=== PATIENT | female | born 1960 | race Caucasian/White ===

== ENCOUNTER 2022-02-15 06:52 | Outpatient (CLI) | payer BC, SELFPAY ==
--- NOTE | 2022-02-15 08:41 | W.ANESCHARGE ---
Anesthesia Charges Start Date/Time Anesthesia Start Date: 02/15/22 Anesthesia Start Time: 08:05 Stop Date/Time Anesthesia Stop Date: 02/15/22 Anesthesia Stop Time: 08:35 Summary Emergency: No
--- NOTE | 2022-02-15 09:35 | W.ANESCHARGE ---
Anesthesia Charges Start Date/Time Anesthesia Start Date: 02/15/22 Anesthesia Start Time: 08:05 Stop Date/Time Anesthesia Stop Date: 02/15/22 Anesthesia Stop Time: 08:35 Summary Emergency: No
== END 2022-02-15 06:53 | disposition home or self-care (01) ==
LOC: OP CLINIC 06:53
PROVIDERS: PCP Family Medicine; Visit Provider Internal Medicine Gastroenterology
DX: Z12.11 Encounter for screening for malignant neoplasm of colon (principal); Z86.010 Personal history of colon polyps; Z87.19 Personal history of other diseases of the digestive system
CPT/HCPCS: 45380; 811; 88305; J2704

== ENCOUNTER 2022-06-27 16:51 | Emergency (ER) | payer BC, SELFPAY ==
[2022-06-27 17:01] VITALS: BP 109/77; PULSE 117; TEMP 37.7; O2SAT 93; BMI 20.2
--- NOTE | 2022-06-27 17:09 | CRLHL7_ITS ---
For Patients: As a result of the Century Cures Act, medical imaging exams and procedure reports are released immediately into your electronic medical record. You may view this report before your referring provider. If you have questions, please contact your health care provider. INDICATION: TECHNIQUE: Two view chest. FINDINGS: The lungs are clear. The heart, mediastinum and pulmonary vessels are of normal size. There is no evidence of pleural disease. Biapical probable fibrotic change. Lungs appear hyperinflated. IMPRESSION: No acute pulmonary findings. Dictated by Matilda Lamas MD @ 06/27/2022 5:53:11 PM (Electronically Signed)
--- NOTE | 2022-06-27 17:10 | ED_ITS ---
HPI - General Adult General Chief complaint: Cough Stated complaint: Vomiting and Diarrea Time Seen by Provider: 06/27/22 17:03 History of Present Illness HPI narrative: This 61-year-old female comes in with a report of 5 days of upper respiratory infection symptoms including cough, nasal congestion, and subjective fever. She is a smoker but attempting to quit. She arrives with normal vital signs except her heart rate is increased at 117 beats per minute. Her temperature also is at 99.9. Related Data Home Medications Medication Instructions Recorded Confirmed aspirin 81 mg tablet,delayed mg 06/27/22 release lisinopril 10 mg tablet mg 06/27/22 methocarbamol 500 mg tablet mg 06/27/22 rosuvastatin 10 mg tablet mg 06/27/22 Allergies Allergy/AdvReac Type Severity Reaction Status Date / Time infliximab [From Remicade] Allergy Severe Anaphylaxis Verified 02/15/22 09:32 pollen extracts AdvReac Intermediate itching Verified 02/15/22 09:32 codeine AdvReac Mild GI upset Verified 02/15/22 09:32 iohexol AdvReac Mild Verified 02/15/22 09:32 augmentin Allergy Mild Rash Uncoded 02/15/22 09:32 Review of Systems Status of ROS: Reports: 10 or more systems reviewed and unremarkable except as noted in History and below Narrative: Constitutional: No fevers, no weight gain or loss. Eyes: No discharge. No vision changes. HENT: No congestion, no sore throat, no ear pain. Cardiovascular: No chest pain, no palpitations. Respiratory: No shortness of breath, no wheezes. Frequent cough. Gastrointestinal: No abdominal pain, no vomiting, no diarrhea. Genitourinary: No dysuria, no hematuria. Musculoskeletal: Normal range of motion. Skin: No rashes, no pruritis. Neurological: No dizziness, weakness, sensory change, speech change. Endo/Heme/Allergies: No bruising or bleeding. No polydipsia. Pysch: no suicidality, no anxiety, no insomnia. All other systems reviewed and are negative. Exam Narrative: Exam Narrative: Constitutional: Well-developed, well-nourished, no acute distress. HEENT: Normocephalic, atraumatic. Neck: Normal range of motion. Nontender. Supple. Heart: Regular. No murmurs. Normal rate. Intact distal pulses. Lungs: Clear to auscultation. No chest discomfort. Bilateral rhonchi. Abdomen: Normal bowel sounds. Nontender. No rebound tenderness. Genitalia: Deferred. Back: No midline tenderness. Normal range of motion. Extremities: Normal range of motion. No injury. Skin: Intact. No rash. Warm. No erythema or pallor. Neurologic: No altered sensation. No weakness. Alert and oriented. Psychiatric: No suicidality. No anxiety or depression. No insomnia. Nursing notes and vitals signs are reviewed. Const: Vital Signs, click to edit/add: Vital Signs - 24 hr 06/27/22 17:01 06/27/22 17:50 06/27/22 18:01 Temperature 99.9 F H Pulse Rate [Left] 117 H 86 Blood Pressure [Ri ght Upper Arm] 109/77 136/97 H Pulse Oximetry 93 93 Oxygen Delivery Me thod Room Air Room Air Course Vital Signs Vital signs: Initial Vital Signs Temperature 99.9 F H 06/27/22 17:01 Temperature Source Temporal Artery Scan 06/27/22 17:01 Pulse Rate 117 H 06/27/22 17:01 Blood Pressure 109/77 06/27/22 17:01 Blood Pressure Mean 87 06/27/22 17:01 Blood Pressure Position Sitting 06/27/22 17:01 Pulse Oximetry 93 06/27/22 17:01 Oxygen Delivery Method 06/27/22 17:01 Vital Signs Temperature 99.9 F H 06/27/22 17:01 Pulse Rate 117 H 06/27/22 17:01 Blood Pressure 109/77 06/27/22 17:01 Pulse Oximetry 93 06/27/22 17:01 Oxygen Delivery Method 06/27/22 17:01 Temperature 99.9 F H 06/27/22 17:01 Pulse Rate 86 06/27/22 18:01 Blood Pressure 136/97 H 06/27/22 17:50 Pulse Oximetry 93 06/27/22 18:01 Oxygen Delivery Method 06/27/22 18:01 Medical Decision Making [facility] Narrative Medical decision making narrative: This patient comes in with some tachycardia a and possible increased respiratory rate. Is not certain if she is triggering sirs criteria for sepsis but nevertheless I did order appropriate test to rule this out. Time seen: 1720 Date seen: 06/27/2022 This patient presents with symptoms suspicious for sepsis. Appropriate labs are ordered which may include CBC, BMP, lactate, and blood cultures. The initial lactate returns at 1.7. One thousand mL of IV fluids were ordered at a rate of 1000 mL/hr. Antibiotic treatment is not indicated at this time. A repeat lactate at was not indicated. Based on these results this patient does not have severe sepsis or septic shock. The patient did receive an IV dose of Solu-Medrol 125 mg. Chest x-ray returns with no acute findings. Nasal for angio swab is negative for COVID, influenza, and RSV. Additionally her labs returned with normal white count and no other particular notable findings. Most likely she has a viral infection. She does have a smoking history. I did prescribe albuterol inhaler, Tylenol 3 for cough suppressant benefit, and a Z-Fernando in the event that this may help her given her smoking history risk. Lab Data Labs: Lab Results 06/27/22 06/27/22 06/27/22 Range/Units 17:00 17:38 17:38 WBC 8.84 (4.50-11.00) K/uL RBC 4.95 (4.00-5.20) m/uL Hgb 14.4 (12.0-16.0) gm/dL Hct 43.3 (33.0-51.0) % MCV 88 (80-100) fL MCH 29 (26-34) pg MCHC 33 (32-36) gm/dL RDW Coeff of David 12.4 (11.5-15.5) % Plt Count 232 (140-440) K/uL Neut % (Auto) 71.0 (42.0-72.0) % Lymph % (Auto) 15.0 L (20-44) % [place] % (Auto) 12.2 H (0.0-11.0) % Eos % (Auto) 1.0 (0.0-7.0) % Baso % (Auto) 0.6 (0.0-3.0) % Neut # (Auto) 6.27 (1.7-7.0) K/uL Lymph # (Auto) 1.30 (0.90-2.90) K/uL [place] # (Auto) 1.10 H (0.00-0.90) K/UL Eos # (Auto) 0.09 (0.00-0.50) K/uL Baso # (Auto) 0.05 (0.00-0.30) K/uL Abs Immat Gran (auto) 0.02 (0.00-0.30) K/uL Imm/Tot Granulo (auto) 0.2 % VBG pH (7.32-7.43) VBG pCO2 (40-50) mmHG VBG pO2 (25-47) mmHG VBG HCO3 (21-28) mmol/L Sodium 139 (135-149) mmol/L Potassium 3.8 (3.6-5.1) mmol/L Chloride 108 (96-114) mmol/L Carbon Dioxide 22 (20-32) mmol/L BUN 13 (7-30) mg/dL Creatinine 0.5 (0.5-1.5) mg/dL Estimated Creat Clear 107.10 Estimated GFR 107 ml/min Glucose 134 H (60-115) mg/dL Lactate (0.5-1.9) mmol/L Calcium 9.5 (8.4-10.6) mg/dL SARS-CoV-2 (PCR) Negative SARS-CoV-2 (Negative) Influenza Type A (PCR) Negative PCR FLU A (Negative) Influenza Type B (PCR) Negative PCR FLU B (Negative) RSV (PCR) Negative PCR RSV (Negative) 06/27/22 Range/Units 17:38 WBC (4.50-11.00) K/uL RBC (4.00-5.20) m/uL Hgb (12.0-16.0) gm/dL Hct (33.0-51.0) % MCV (80-100) fL MCH (26-34) pg MCHC (32-36) gm/dL RDW Coeff of David (11.5-15.5) % Plt Count (140-440) K/uL Neut % (Auto) (42.0-72.0) % Lymph % (Auto) (20-44) % [place] % (Auto) (0.0-11.0) % Eos % (Auto) (0.0-7.0) % Baso % (Auto) (0.0-3.0) % Neut # (Auto) (1.7-7.0) K/uL Lymph # (Auto) (0.90-2.90) K/uL [place] # (Auto) (0.00-0.90) K/UL Eos # (Auto) (0.00-0.50) K/uL Baso # (Auto) (0.00-0.30) K/uL Abs Immat Gran (auto) (0.00-0.30) K/uL Imm/Tot Granulo (auto) % VBG pH 7.439 H (7.32-7.43) VBG pCO2 35 L (40-50) mmHG VBG pO2 55.9 H (25-47) mmHG VBG HCO3 23 (21-28) mmol/L Sodium (135-149) mmol/L Potassium (3.6-5.1) mmol/L Chloride (96-114) mmol/L Carbon Dioxide (20-32) mmol/L BUN (7-30) mg/dL Creatinine (0.5-1.5) mg/dL Estimated Creat Clear Estimated GFR ml/min Glucose (60-115) mg/dL Lactate 1.7 (0.5-1.9) mmol/L Calcium (8.4-10.6) mg/dL SARS-CoV-2 (PCR) (Negative) Influenza Type A (PCR) (Negative) Influenza Type B (PCR) (Negative) RSV (PCR) (Negative) Imaging Data Chest x-ray: Radiologist's impression: FINDINGS: The lungs are clear. The heart, mediastinum and pulmonary vessels are of normal size. There is no evidence of pleural disease. Biapical probable fibrotic change. Lungs appear hyperinflated. IMPRESSION: No acute pulmonary findings. Discharge Plan Discharge Clinical Impression: Acute lower respiratory infection Patient Disposition: Home, Self-Care Condition: Stable Additional Instructions: Take medication as needed and indicated. Follow up with MD or return if worsening. Prescriptions: No Action methocarbamol 500 mg tablet aspirin 81 mg tablet,delayed release (DR/EC) lisinopril 10 mg tablet rosuvastatin 10 mg tablet Follow Up/Referrals: Andie Holliday MD [Primary Care Provider] - Stand Alone Forms: [employer] Info Instructions
[2022-06-27] MEDS: dexAMETHasone 10 MG/ML inj PO (17:14)
[2022-06-27 17:45] LABS: HCO3 VBG 23 mmol/L (21-28); Lactate* 1.7 mmol/L (0.5-1.9); PCO2 VBG 35 mmHG (40-50); PO2 VBG 55.9 mmHG (25-47); pH VBG 7.439 (7.32-7.43)
[2022-06-27 17:48] LABS: Basophils Absolute Auto 0.05 K/uL (0.00-0.30); Basophils Percent Auto 0.6 % (0.0-3.0); Eosinophils Absolute Auto 0.09 K/uL (0.00-0.50); Hematocrit 43.3 % (33.0-51.0); Hemoglobin* 14.4 gm/dL (12.0-16.0); Immature Granulocytes Abs Auto 0.02 K/uL (0.00-0.30); Immature Granulocytes Pct Auto 0.2 %; Mean Corpuscular HGB Conc 33 gm/dL (32-36); Mean Corpuscular Hemoglobin 29 pg (26-34); Mean Corpuscular Volume 88 fL (80-100); Monocytes Percent Auto 12.2 % (0.0-11.0); Neutrophils Absolute Auto 6.27 K/uL (1.7-7.0); Platelet Count* 232 K/uL (140-440); RDW Coefficient of Variation % 12.4 % (11.5-15.5); Red Blood Count 4.95 m/uL (4.00-5.20); Slide Review Reflex No; White Blood Count* 8.84 K/uL (4.50-11.00)
[2022-06-27 17:50] VITALS: BP 136/97
[2022-06-27 17:53] LABS: PCR FLU A Negative PCR FLU A (Negative); PCR FLU B Negative PCR FLU B (Negative); PCR RSV Negative PCR RSV (Negative)
[2022-06-27 17:54] LABS: SARS PCR* Negative SARS-CoV-2 (Negative)
[2022-06-27] MEDS: 0.9 % SODIUM CHLORIDE 1000 ml 1,000 ML IV (17:57)
[2022-06-27 18:01] VITALS: PULSE 86; O2SAT 93
[2022-06-27 18:01] LABS: Chloride* 108 mmol/L (96-114); Potassium* 3.8 mmol/L (3.6-5.1); Sodium* 139 mmol/L (135-149)
[2022-06-27 18:03] LABS: Creatinine* 0.5 mg/dL (0.5-1.5); Estimated Glomerular Filt Rate 107 ml/min
[2022-06-27 18:04] LABS: Blood Urea Nitrogen* 13 mg/dL (7-30); Calcium* 9.5 mg/dL (8.4-10.6); Carbon Dioxide* 22 mmol/L (20-32); Glucose* 134 mg/dL (60-115)
[2022-06-27] MEDS: METHYLPREDNISOLONE SOD SUCC 62.5 MG/ML (125) 125 MG IVP (18:45)
[2022-06-27 18:55] VITALS: PULSE 92; O2SAT 95
== END 2022-06-27 18:58 | disposition home or self-care (01) ==
PROVIDERS: Emergency Provider Emergency Medicine Emergency Medical Services; PCP Family Medicine
DX: J22 Unspecified acute lower respiratory infection (principal); F17.210 Nicotine dependence, cigarettes, uncomplicated
CPT/HCPCS: 36415; 71046; 80048; 82803; 83605; 85025; 87040; 87502; 87634; 87635; 96361; 96374; 99284; J1100; J2930; J7030

== ENCOUNTER 2023-02-24 00:26 | Emergency (ER) | payer BC, SELFPAY ==
[2023-02-24 00:37] VITALS: BP 147/87; PULSE 76; RESP 20; TEMP 36.3; BMI 20.8
--- NOTE | 2023-02-24 00:55 | ED.GENADULT ---
HPI - General Adult General Chief complaint: Back Injury/Pain Stated complaint: back pain Time Seen by Provider: 02/24/23 00:55 History of Present Illness HPI narrative: states [place] Went [place] urgent care last week when she hurt it again lifting a mattress and they gave her some pills but they are not helping 62-year-old woman presenting to the emergency department with complaint of back pain. This injury occurred a believe now 5 or 6 days ago. Was seen 3 days ago in the urgent care and looks like was given cyclobenzaprine. Diagnosed with low back pain and it seems like thought to have had some muscle spasm. She [place]. This occurred while she was lifting a mattress most recently with sudden onset of pain. She is not really having radicular pain. Flexion rotation at the waist hurts a great deal. Trying to stand up/straighten up is painful. Does not seem to be able to get the pain under control with [id number] medications and cyclobenzaprine. She has been icing. Does have access to a [employer] unit. Related Data Home Medications Medication Instructions Recorded Confirmed aspirin 81 mg tablet,delayed mg 06/27/22 02/21/23 release lisinopril 10 mg tablet mg 06/27/22 02/21/23 methocarbamol 500 mg tablet mg 06/27/22 02/21/23 rosuvastatin 10 mg tablet mg 06/27/22 02/21/23 Previous Rx's Medication Instructions Recorded cyclobenzaprine 5 mg tablet 5 - 10 mg (1 - 2 x 5 mg) PO TID 02/21/23 PRN muscle spasm #20 tabs hydrocodone 5 mg-acetaminophen 325 1 - 2 tab PO Q4-6H PRN pain #8 tabs 02/24/23 mg tablet Allergies Allergy/AdvReac Type Severity Reaction Status Date / Time infliximab [From Remicade] Allergy Severe Anaphylaxis Verified 02/21/23 12:15 pollen extracts AdvReac Intermediate itching Verified 02/21/23 12:15 codeine AdvReac Mild GI upset Verified 02/21/23 12:15 iohexol AdvReac Mild Verified 02/21/23 12:15 augmentin Allergy Mild Rash Uncoded 02/21/23 12:15 Review of Systems Status of ROS: Reports: 6 or more systems reviewed and unremarkable except as noted in History and below [facility] Medical History Low back pain ?M54.50 - Low back pain, unspecified (ICD-10) Smoker ?F17.200 - Nicotine dependence, unspecified, uncomplicated (ICD-10) Wheezing ?R06.2 - Wheezing (ICD-10) Social History Smoking Status: Current every day smoker What tobacco products do you use: cigarettes Second hand tobacco smoke exposure: No How often do you have a drink containing alcohol: never How often do you have six or more drinks on one occasion: Never AUDIT-C Alcohol total score: 0 Non-prescribed substance use: denies use Exam Narrative: Exam Narrative: Pleasant. Clearly very uncomfortable. Winces with transitions. Straight leg raise is negative. She is not actually weak to flexion or extension at the thigh. I do not see deformity. Pain seems to be across the low back with demonstrating that it is regional its affect. Seems to be concentrated somewhat around the right SI joint. Fabers is positive. Does not have significant piriformis pain. Const: Vital Signs, click to edit/add: Vital Signs - 24 hr 02/24/23 00:37 Temperature 97.4 F L Pulse Rate [Right Pulse Oximeter] 76 Respiratory Rate 20 Blood Pressure [Le ft Upper Arm] 147/87 H Oxygen Delivery Me thod Room Air Documenting provider has reviewed patient's vital signs: yes Course Vital Signs Vital signs: Initial Vital Signs Temperature 97.4 F L 02/24/23 00:37 Temperature Source Temporal Artery Scan 02/24/23 00:37 Pulse Rate 76 02/24/23 00:37 Respiratory Rate 20 02/24/23 00:37 Blood Pressure 147/87 H 02/24/23 00:37 Blood Pressure Mean 107 H 02/24/23 00:37 Blood Pressure Position Sitting 02/24/23 00:37 Oxygen Delivery Method Room Air 02/24/23 00:37 Vital Signs Temperature 97.4 F L 02/24/23 00:37 Pulse Rate 76 02/24/23 00:37 Respiratory Rate 20 02/24/23 00:37 Blood Pressure 147/87 H 07/20/23 00:37 Oxygen Delivery Method Room Air 07/20/23 00:37 Temperature 97.4 F L 02/24/23 00:37 Pulse Rate 76 02/24/23 00:37 Respiratory Rate 20 02/24/23 00:37 Blood Pressure 147/87 H 02/24/23 00:37 Oxygen Delivery Method Room Air 02/24/23 00:37 Medical Decision Making MDM Narrative Medical decision making narrative: I do not think imaging would be particularly helpful at this point. I would continue with mobility, strengthening/stretching and symptomatic treatment. See patient discharge plan Medical Records Medical records reviewed: Yes I reviewed the patient's medical records Discharge Plan Discharge Clinical Impression: Sacroiliac strain, Low back pain Patient Disposition: Home w/ Parent or Adult Condition: Improved Additional Instructions: I like those screw top ice bags. Fill with ice and water. I would ice the areas that hurt 2 - 3 times daily over the next few days. Stay well-hydrated. Can take ibuprofen or naproxen for pain. Acetaminophen can be combined with either of these. If this isn't enough, then Kittery from [facility] can help (due to very small quantities available in [employer], I also sent some to your pharmacy). Remember that each tablet of Kittery contains 325 mg of acetaminophen. Can take up to 1000 mg of acetaminophen per dose. See handout for sacral iliac pain. I would try to do these exercises and stretches daily going forward. Please also make a follow-up with primary care to be re-evaluated and/or get in with physical therapy. Yes, your TENS unit might help. Take the prednisone as 60 mg daily for 2 days then 40 mg daily for 4 days then 20 mg daily for 2 days Prescriptions: New hydrocodone-acetaminophen 5-325 mg tablet 1 - 2 tab PO Q4-6H PRN (Reason: pain) Qty: 8 0RF No Action cyclobenzaprine 5 mg tablet 5 - 10 mg PO TID PRN (Reason: muscle spasm) Qty: 20 0RF methocarbamol 500 mg tablet aspirin 81 mg tablet,delayed release (DR/EC) lisinopril 10 mg tablet rosuvastatin 10 mg tablet Follow Up/Referrals: Andie Holliday MD [Primary Care Provider] - Stand Alone Forms: [employer] Info Instructions
[2023-02-24] MEDS: HYDROmorphone 0.5 mg/0.5 ml inj 1 MG IM (01:16)
== END 2023-02-24 01:48 | disposition home or self-care (01) ==
PROVIDERS: Emergency Provider Family Medicine; PCP Family Medicine
DX: M54.50 Low back pain, unspecified (principal); M53.3 Sacrococcygeal disorders, not elsewhere classified
CPT/HCPCS: 96372; 99284; J1170

== ENCOUNTER 2023-06-01 15:02 | Emergency (ER) | payer BC, SELFPAY ==
[2023-06-01 15:16] VITALS: BP 149/84; PULSE 78; RESP 18; TEMP 36.1; O2SAT 97; BMI 20.2
--- NOTE | 2023-06-01 15:33 | CRLHL7_ITS ---
For Patients: As a result of the Century Cures Act, medical imaging exams and procedure reports are released immediately into your electronic medical record. You may view this report before your referring provider. If you have questions, please contact your health care provider. CLINICAL HISTORY: Right lower extremity numbness. TECHNIQUE: CTA head with contrast bolus tracking. 3D angiographic rendering using maximum intensity projection (MIP) and images permanently archived. COMPARISON: None available. FINDINGS: The petrous, cavernous, and supraclinoid segments of the internal carotid arteries are patent. The anterior and middle cerebral arteries are patent. The anterior communicating artery is visualized and is within normal limits. The intracranial vertebral arteries, basilar trunk, and posterior cerebral arteries are patent. Scattered intracranial atherosclerotic disease without proximal large vessel occlusion or flow-limiting luminal stenosis. No evidence of cerebral aneurysm. No findings to suggest an arterial-venous shunting lesion. The major dural venous sinuses and deep venous system are patent. IMPRESSION: No intracranial proximal large vessel occlusion, flow-limiting luminal stenosis, or cerebral aneurysm. Please note that all CT scans at this facility use dose modulation, iterative reconstruction, and/or weight-based dosing when appropriate to reduce radiation dose to as low as reasonably achievable. Dictated by Mark Fisher MD @ 06/02/2023 8:03:47 AM (Electronically Signed)
--- NOTE | 2023-06-01 15:33 | CRLHL7_ITS ---
For Patients: As a result of the Century Cures Act, medical imaging exams and procedure reports are released immediately into your electronic medical record. You may view this report before your referring provider. If you have questions, please contact your health care provider. CLINICAL HISTORY: Right lower extremity numbness. TECHNIQUE: CTA neck with contrast bolus tracking. 3D angiographic rendering using maximum intensity projection (MIP) and images permanently archived. COMPARISON: None available. FINDINGS: The great vessels are patent. The common carotid arteries are patent. Mixed but predominantly noncalcified atherosclerotic plaque involves the right carotid bifurcation and extends into the carotid bulb. The proximal ICAs are patent without signficant stenoses by NASCET criteria. The more distal cervical ICAs are patent. The origins of the vertebral arteries are patent. The cervical segments of the vertebral arteries are patent. Biapical pleural-parenchymal scarring. IMPRESSION: Patent cervical arterial vasculature without hemodynamically significant luminal stenosis. Please note that all CT scans at this facility use dose modulation, iterative reconstruction, and/or weight-based dosing when appropriate to reduce radiation dose to as low as reasonably achievable. Dictated by Mark Fisher MD @ 06/02/2023 8:00:58 AM (Electronically Signed)
--- NOTE | 2023-06-01 15:33 | CRLHL7_ITS ---
For Patients: As a result of the Century Cures Act, medical imaging exams and procedure reports are released immediately into your electronic medical record. You may view this report before your referring provider. If you have questions, please contact your health care provider. INDICATION: Right leg numbness TECHNIQUE: Noncontrast axial CT of the head. Coronal and sagittal reformats. Bone and soft tissue algorithms. COMPARISON: CT head 05/15/2020 FINDINGS: The ventricles and cortical sulci appears stable in configuration. No midline shift, hydrocephalus or herniation. No acute intracranial hemorrhage or extra-axial fluid collection. Small hypoattenuating focus in the region of the left basal ganglia, compatible with chronic lacune infarct, new will attempt to 05/15/2020. Stable small focus of encephalomalacia at the left frontal operculum. Bond-white matter differentiation is grossly maintained. White matter attenuation is within normal limits. There is calcific plaquing the carotid siphons. Midline structures are unremarkable. Bony calvarium appears grossly intact. Paranasal sinuses and mastoid air cells are clear. Orbits are unremarkable. IMPRESSION: 1. No acute intracranial hemorrhage or evidence of transcortical ischemia. 2. Small chronic lacunar infarct at the left basal ganglia, new relative to 05/15/2020. 3. Stable small focus of encephalomalacia at the left frontal operculum. Please note that all CT scans at this facility use dose modulation, iterative reconstruction, and/or weight-based dosing when appropriate to reduce radiation dose to as low as reasonably achievable. Dictated by Martha Quezada MD @ 06/01/2023 4:37:25 PM (Electronically Signed)
--- NOTE | 2023-06-01 15:37 | CRLHL7_ITS ---
For Patients: As a result of the Cures Act, medical imaging exams and procedure reports are released immediately into your electronic medical record. You may view this report before your referring provider. If you have questions, please contact your health care provider. INDICATION: Fall COMPARISON: None. TECHNIQUE: AP pelvis FINDINGS: BONES: Screw tract from a now removed dynamic hip screw across the right femoral neck. No acute or healing fracture. Normal bone mineralization. No focal bone lesion. JOINT: Alignment: Normal. Joint spaces: Bilateral hip osteoarthritis, mild. SOFT TISSUES: Contrast in the urinary bladder and right ureter related to CT angiogram head obtained earlier today. IMPRESSION: No pelvic fracture seen. Dictated by Lisha Huynh MD @ 06/01/2023 4:42:38 PM (Electronically Signed)
--- NOTE | 2023-06-01 15:38 | ED_ITS ---
HPI - General Adult General Time Seen by Provider: 15:38 Date Seen: 06/01/23 Chief complaint: Extremity Pain/Injury, Lower Stated complaint: Leg went numb, fall Time Seen by Provider: 06/01/23 15:07 Source: patient Mode of arrival: ambulatory Limitations: no limitations History of Present Illness HPI narrative: 62-year-old female who reports she had a stroke in the past for she had right- sided weakness and facial droop, she recovered well from that. She was walking at her job today going down 3 stairs and her right leg went numb and then she fell she had pain in her right lateral hip the 1 that was replaced. She has been able to bear weight she has been able to walk, she continues to smoke. She has hypertension and elevated cholesterol. The patient has no residual weakness in her leg and was able to get up and walk right away she had no facial asymmetry, no neck stiffness or back pain. She was seen for back pain by physical therapy a few weeks ago and did have some mild right leg symptoms that seemed to have gotten better. No other specific complaints at this time. No chest pain, no shortness of breath, no recent fever chills or illness. No d izziness or lightheadedness. Related Data Home Medications Medication Instructions Recorded Confirmed aspirin 81 mg tablet,delayed mg 06/27/22 02/21/23 release lisinopril 10 mg tablet mg 06/27/22 02/21/23 methocarbamol 500 mg tablet mg 06/27/22 02/21/23 rosuvastatin 10 mg tablet mg 06/27/22 02/21/23 Previous Rx's Medication Instructions Recorded cyclobenzaprine 5 mg tablet 5 - 10 mg (1 - 2 x 5 mg) PO TID 02/21/23 PRN muscle spasm #20 tabs hydrocodone 5 mg-acetaminophen 325 1 - 2 tab PO Q4-6H PRN pain #8 tabs 02/24/23 mg tablet Allergies Allergy/AdvReac Type Severity Reaction Status Date / Time infliximab [From Remicade] Allergy Severe Anaphylaxis Verified 02/21/23 12:15 pollen extracts AdvReac Intermediate itching Verified 02/21/23 12:15 codeine AdvReac Mild GI upset Verified 02/21/23 12:15 iohexol AdvReac Mild Verified 02/21/23 12:15 augmentin Allergy Mild Rash Uncoded 02/21/23 12:15 Review of Systems Status of ROS: Reports: 6 or more systems reviewed and unremarkable except as noted in History and below [facility] Medical History Low back pain ?M54.50 - Low back pain, unspecified (ICD-10) Smoker ?F17.200 - Nicotine dependence, unspecified, uncomplicated (ICD-10) Wheezing ?R06.2 - Wheezing (ICD-10) Social History Smoking Status: Current every day smoker What tobacco products do you use: cigarettes Second hand tobacco smoke exposure: No How often do you have a drink containing alcohol: never How often do you have six or more drinks on one occasion: Never AUDIT-C Alcohol total score: 0 Non-prescribed substance use: denies use Exam Narrative: Exam Narrative: Objective: Patient's vital signs look largely within normal limits with exception of blood pressure slightly elevated HEENT is unremarkable no facial asymmetry, pupils react to light extra moves intact Mouth opens normally, normal tongue protrusion Neck is supple full range of motion Chest back abdomen unremarkable Pulses regular Extremities she has mild right greater trochanteric area tenderness, she has no strength deficit or weakness or lower extremities. She has normal peripheral perfusion Const: Vital Signs, click to edit/add: Vital Signs - 24 hr 06/01/23 15:16 Temperature 97 F L Pulse Rate [Pulse Oximeter] 78 Respiratory Rate 18 Blood Pressure [Ri ght Upper Arm] 149/84 H Pulse Oximetry 97 Oxygen Delivery Me thod Room Air Course Vital Signs Vital signs: Initial Vital Signs Temperature 97 F L 06/01/23 15:16 Temperature Source Temporal Artery Scan 06/01/23 15:16 Pulse Rate 78 06/01/23 15:16 Respiratory Rate 18 06/01/23 15:16 Blood Pressure 149/84 H 06/01/23 15:16 Blood Pressure Mean 105 06/01/23 15:16 Blood Pressure Position Sitting 06/01/23 15:16 Pulse Oximetry 97 06/01/23 15:16 Oxygen Delivery Method Room Air 06/01/23 15:16 Vital Signs Temperature 97 F L 06/01/23 15:16 Pulse Rate 78 06/01/23 15:16 Respiratory Rate 18 06/01/23 15:16 Blood Pressure 149/84 H 06/01/23 15:16 Pulse Oximetry 97 06/01/23 15:16 Oxygen Delivery Method Room Air 06/01/23 15:16 Temperature 97 F L 06/01/23 15:16 Pulse Rate 78 06/01/23 15:16 Respiratory Rate 18 06/01/23 15:16 Blood Pressure 149/84 H 06/01/23 15:16 Pulse Oximetry 97 06/01/23 15:16 Oxygen Delivery Method Room Air 06/01/23 15:16 Medical Decision Making MDM Narrative Medical decision making narrative: [age] year white female with some right leg numbness that she felt caused her to fall. This certainly could be from a back pain in the sciatic kind of issue from before. The concern be she has risk factors for stroke that include continued smoking, elevated cholesterol, hypertension. I think at this point given the patient's prior history will get a pelvic x-ray to look at her right hip to make sure that is intact. Also would do a CT CTA because of the patient's prior stroke history and make sure should have any stroke issues. I do not think that that is the case as I suspect this is more related to either imbalance, or related to her prior hip repair or sciatic type change or issue, causing her to fall. I suspect given that there was no residual weakness or other problem that this is not stroke-like but given her prior history I think this be appropriate to check. Addendum 5:00 p.m.: The patient has a negative pelvic x-ray for fracture injury. The patient also has a negative head CT scan showing no acute intracranial hemorrhage or evidence of transcortical ischemia she does have a small chronic lacunar infarct at the left basal ganglia new relative to 2001. She appears to have no significant blockage in her neck her head CTA, and no evidence of bleeding. I think at this point the patient likely had some type of muscular issue or neurologic issues such as a sciatic issue that could have caused some numbness and the fall. Stressed importance of stopping smoking given she has a new older lacunar infarct. Would recommend she engage in light activity, observation, and recheck with regular doctor next few days. May use some ice and ibuprofen for her right hip. Return to ED sooner as needed also of note is the patient's EKG shows normal sinus rhythm normal EKG by my read Lab Data Labs: Lab Results 06/01/23 Range/Units 16:00 WBC 6.58 (4.50-11.00) K/uL RBC 4.57 (4.00-5.20) m/uL Hgb 13.4 (12.0-16.0) gm/dL Hct 41.5 (33.0-51.0) % MCV 91 (80-100) fL MCH 29 (26-34) pg MCHC 32 (32-36) gm/dL RDW Coeff of David 12.7 (11.5-15.5) % Plt Count 240 (140-440) K/uL Neut % (Auto) 57.0 (42.0-72.0) % Lymph % (Auto) 30.5 (20-44) % [place] % (Auto) 9.4 (0.0-11.0) % Eos % (Auto) 2.3 (0.0-7.0) % Baso % (Auto) 0.8 (0.0-3.0) % Neut # (Auto) 3.75 (1.7-7.0) K/uL Lymph # (Auto) 2.01 (0.90-2.90) K/uL [place] # (Auto) 0.60 (0.00-0.90) K/UL Eos # (Auto) 0.15 (0.00-0.50) K/uL Baso # (Auto) 0.05 (0.00-0.30) K/uL Abs Immat Gran (auto) 0.00 (0.00-0.30) K/uL Imm/Tot Granulo (auto) 0.0 % Sodium 142 (135-149) mmol/L Potassium 3.8 (3.6-5.1) mmol/L Chloride 108 (96-114) mmol/L Carbon Dioxide 25 (20-32) mmol/L Anion Gap 9 (7-15) mEq/L BUN 10 (7-30) mg/dL Creatinine 0.7 (0.5-1.5) mg/dL Estimated Creat Clear 52.88 Estimated GFR 98 ml/min Glucose 96 (60-115) mg/dL Calcium 9.2 (8.4-10.6) mg/dL Discharge Plan Discharge Clinical Impression: Paresthesia of right leg, History of stroke, Fall Patient Disposition: Home w/ Parent or Adult Condition: Stable Additional Instructions: Light activity, recommend stop smoking, recommend follow-up with her primary care doctor next few days. May use some Tylenol for the next couple of days. Ice to the right side of the hip as needed. Return to the ED as needed. Activity Level: Light activity Discharge Diet: Low Fat/Low Cholesterol Prescriptions: No Action cyclobenzaprine 5 mg tablet 5 - 10 mg PO TID PRN (Reason: muscle spasm) Qty: 20 0RF hydrocodone-acetaminophen 5-325 mg tablet 1 - 2 tab PO Q4-6H PRN (Reason: pain) Qty: 8 0RF methocarbamol 500 mg tablet aspirin 81 mg tablet,delayed release (DR/EC) lisinopril 10 mg tablet rosuvastatin 10 mg tablet Follow Up/Referrals: Andie Holliday MD [Primary Care Provider] - Stand Alone Forms: [employer] Info Instructions
[2023-06-01 16:42] LABS: Chloride* 108 mmol/L (96-114); Potassium* 3.8 mmol/L (3.6-5.1); Sodium* 142 mmol/L (135-149)
[2023-06-01 16:45] LABS: Anion Gap 9 mEq/L (7-15); Blood Urea Nitrogen* 10 mg/dL (7-30); Calcium* 9.2 mg/dL (8.4-10.6); Carbon Dioxide* 25 mmol/L (20-32); Creatinine* 0.7 mg/dL (0.5-1.5); Est. Creatinine Clearance* 52.88; Estimated Glomerular Filt Rate 98 ml/min; Glucose* 96 mg/dL (60-115)
[2023-06-01 16:47] LABS: Basophils Absolute Auto 0.05 K/uL (0.00-0.30); Basophils Percent Auto 0.8 % (0.0-3.0); Eosinophils Absolute Auto 0.15 K/uL (0.00-0.50); Eosinophils Percent Auto 2.3 % (0.0-7.0); Hematocrit 41.5 % (33.0-51.0); Hemoglobin* 13.4 gm/dL (12.0-16.0); Lymphocytes Absolute Auto 2.01 K/uL (0.90-2.90); Lymphocytes Percent Auto 30.5 % (20-44); Mean Corpuscular HGB Conc 32 gm/dL (32-36); Mean Corpuscular Hemoglobin 29 pg (26-34); Mean Corpuscular Volume 91 fL (80-100); Monocytes Percent Auto 9.4 % (0.0-11.0); Neutrophils Absolute Auto 3.75 K/uL (1.7-7.0); Platelet Count* 240 K/uL (140-440); RDW Coefficient of Variation % 12.7 % (11.5-15.5); Red Blood Count 4.57 m/uL (4.00-5.20); White Blood Count* 6.58 K/uL (4.50-11.00)
[2023-06-01 16:49] LABS: Slide Review Reflex No
== END 2023-06-01 17:15 | disposition home or self-care (01) ==
LOC: ED 15:47
PROVIDERS: Emergency Provider Family Medicine; PCP Family Medicine
DX: R20.2 Paresthesia of skin (principal); W19.XXXA Unspecified fall, initial encounter
CPT/HCPCS: 36415; 70450; 70496; 70498; 72170; 80048; 85025; 93005; 99284; 99285; Q9967

== ENCOUNTER 2023-12-27 14:45 | Outpatient (RCR) | payer MEDICAID, OTHER, BC, SELFPAY ==
--- NOTE | 2023-11-25 17:30 | OT.OPOE ---
OT Outpatient Ortho Eval OT Outpatient Ortho Eval* Start: 11/25/23 17:07 Freq: Status: Active Protocol: Document 11/25/23 17:08 LCN (Rec: 11/25/23 17:26 LCN [id number]) E-signed By Makenna Watts, OTR/Penny, CLT OT OP Ortho Eval Details Complexity Complexity Low Insurance Information Insurance Information Workman's Comp Outpatient History/Precautions Current Condition/Medical Diagnosis Referring Provider MERLIN Lira Treatment Diagnosis R 4th digit MC fracture Date of Onset 09/26/23 Medical Conditions Arthritis,Stroke Other Conditions Has had TIA, small vessel disease, Crohn's DIsease, hypothyroidism hypertension, terminal gauger smoker Prior fracture of L wrist. 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 I sL hand dominant. Xray reveals good healing evidence as of , removed from splint and put into velcro splint. ( OTR makes new custom ulnar gutter wrist to digit tip today with orthoplast, velcro closure). Referred to OT for gentle ROM progression of wrist, hand, digits. To continue with precautions, no heavy gripping or lifting> 2 # Can remove brace when relaxing at home, wear for all heavy tasks in the next month -> 12/22/23. Pain Assessment Pain Present Pain Present Pain Reported Location R hand Description Pressure,Throbbing,Heaviness Intensity 5 Range of Motion and Strength Wrist Range of Motion and Strength Wrist Range of Motion and Strength R WR EX to 45 of 70, WR FL [address] 10 of 20, UD 20 of 45. Composite flexion of IF/MF/RF/ SF is .5 cm / 5.0 / 7.5 and 5 .2 cm. MCP IF/MR/RF/SF is 90 /70/70/ 50 of 90 PIP IF/MF/RF/SF is 95 /70/ 35 /60 of 95 DIP is 35 for IFD/MF/RF/SF. Mounded edema across MF/RF/SF MCP heads and proximal shats to PIP's of these digits. No bruising, but deeper cocoa tone. Hand Pinch/Boarding House Cook Strength Hand Right Boarding House Cook Strength Position 1 (lbs) 0 Left Boarding House Cook Strength Position 1 (lbs) 54 OT Problems Problems Problems Decreased Strength,Decreased Range of Motion,Pain,Sensory Sensitivity,Gripping,Pinching, Other Other Problems Opening Containers,Fasteners Patient Potential Excellent Assessment Assessment Assessment Allison Resendez is having difficulty with edema, pain, ROM and strength loss of R hand/wrist limiting daily tasks, after her fall with base of [facility] fracutre and soft tissue injuries around the fracture site. She would benefit from skilled OT to address these areas. Occupational Therapy Treatment Plan - OP Potential Rehabilitation Potential Excellent Set Goals Goals Set with Patient Yes Goals Goals In 10 weeks, Allison will demonstrate:? 1) Decreased pn to <2/10 80% of the time with sustained gripping, carrying groceries and genlte volley ball play.. 2) I HEP for stretching, gradual strengthening and self mgmt strategies. 3) improved R ux designer strength to 45# and pinch to 12# with R wrist/hand pain < 1/10. 4)??Pt to be fit with functional bracing (for R hand /wrist,) and use adaptive strategies to protect joint integrity to support less pain with ADL. Treatment Plan Treatment Plan Evaluation,Edema Control,Joint Mobilization,Manual Therapy, Splinting,Ultrasound, Therapeutic Exercise,Self Care /Home Management,Education Expected Frequency 1-2x Week Expected Duration 8-10 Weeks Home Program Home Program Home Program Initiated Home Program Specifics WRist ROM gentle holds continue with bracing and compression glove use.
--- NOTE | 2023-12-27 16:47 | OT.OPODN ---
OT Outpatient Ortho Daily Note OT Outpatient Ortho Daily Note* Start: 11/25/23 17:07 Freq: Status: Active Protocol: Document 12/27/23 16:35 LCN (Rec: 12/27/23 16:47 LCN [id number]) E-signed By Makenna Watts, OTR/L, CLT Type of Note Type of Note Type of Note Daily Note,Note to MD,Recert/ Progress Note Visit Number 4 Comments 12/21/23-- Pt had rescheduled to 12/21, then no show. 12/14/23-- Pt no show. 12/02/23 --Pt cancel via [facility] Outpatient History/Precautions Current Condition/Medical Diagnosis Referring Provider MERLIN Lira Treatment Diagnosis R 4th digit MC fracture Date of Onset 09/26/23 Medical Conditions Arthritis,Stroke Other Conditions Has had TIA, small vessel disease, Crohn's DIsease, hypothyroidism hypertension, terminal clerk smoker Prior fracture of L wrist. 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 Wondering if she can go without brace time checker, has lots of hand stiffness, unable to close her fist, but also has missed 3 weeks of therapy. Reports she goes without brace at home, using both hands for ADL/IADL tasks. Does wear at work for protection. OT encourages pt to schedule ortho follow up for hand also. Sees Sm[facility] 01/03/24. Allison Resendez is an active 63 y/o female who fell onto her hand at work and was found to have non displaced 4th MC base fracture of R hand. I sL hand dominant. Xray reveals good healing evidence as of , removed from splint and put into velcro splint. ( OTR makes new custom ulnar gutter wrist to digit tip today with orthoplast, velcro closure). Referred to OT for gentle ROM progression of wrist, hand, digits. To continue with precautions, no heavy gripping or lifting> 2 # Can remove brace when relaxing at home, wear for all heavy tasks in the next month -> 12/22/23. Pain Assessment Pain Present Pain Present Pain Reported Location R hand Description Pressure,Throbbing,Heaviness Intensity 5 OT OP Daily Ortho Note/Assessment Therapeutic Exercise Therapeutic Exercise Minutes (minutes) 8 Therapeutic Exercise Comments Checked sql data architect, and added gentle putty gripping at 30% pressure w light peach putty. Pt very guarded with movements . Can wear glove as needed to reduced hand stiffness/edema. Manual Therapy Manual Therapy Minutes (minutes) 25 Manual Therapy Comments OTR completes LLPS with long 30 ec holds x 5 reps at MF/RF/ SF MCP, PIP areas, and isolated movements/blocking to composite flexion. Improves composite flexion IF/MF/RF/SF to .3 /1.7 / 4.3 / 1.5 cm Total Occupational Therapy Time Occupational Therapy Minutes 33 Home Program Home Program Home Program Initiated,Revised,Compliant Home Program Specifics 12/27/23-- Gentle putty gripping 30% pressure w light peach putty. 12/06/23- Towel walking, flicks, table washing in circles CW/CCW. Contrast baths, towel scrunches WRist ROM gentle holds continue with bracing and compression glove use. Range of Motion and Strength Wrist Range of Motion and Strength Wrist Range of Motion and Strength R WR EX to 45 of 70, WR FL [address] 10 of 20, UD 20 of 45. Composite flexion of IF/MF/RF/ SF is .5 cm / 5.0 / 7.5 and 5 .2 cm. MCP IF/MR/RF/SF is 90 /70/70/ 50 of 90 PIP IF/MF/RF/SF is 95 /70/ 35 /60 of 95 DIP is 35 for IFD/MF/RF/SF. Mounded edema across MF/RF/SF MCP heads and proximal shats to PIP's of these digits. No bruising, but deeper cocoa tone. Goniometric Comments Goniometric Comments Goniometric Comments 12/27/23-- composite flexion IF /MF/RF/SF to .3 /1.7 / 4.3 / 1 .5 cm. 12/06/23--IF/MF/RF/SF to .7 / 2 .7 / 5.5 / 3.2 cm Good ROM for all wrist planes, sup/ pronation. 11/30/23-- Post OT improved composite flexion IF/MF/RF/SF to .3 / 4.2 / 5.8 / 4.5 cm Hand Pinch/Gutter Hanger Strength Hand Right Gutter Hanger Strength Position 1 (lbs) 0 Left Gutter Hanger Strength Position 1 (lbs) 54 Comments Comments 12/27/23-- Gutter Hanger 10# R (pn 4/10 in base of R RF) and 54#L. OT Problems Problems Problems Decreased Strength,Decreased Range of Motion,Pain,Sensory Sensitivity,Gripping,Pinching, Other Other Problems Opening Containers,Fasteners Patient Potential Excellent Assessment Assessment Assessment Allison is feeling achy after effort of session. Improved composite flexion/better sql data architect closure after session. Has been doing more daily function hand use than home exercise program. Lots of guarding with movements. Improving slowly. Limited attendance in OT. Allison Resendez is having difficulty with edema, pain, ROM and strength loss of R hand/wrist limiting daily tasks, after her fall with base of [facility] fracutre and soft tissue injuries around the fracture site. She would benefit from skilled OT to address these areas. Occupational Therapy Treatment Plan - OP Potential Rehabilitation Potential Excellent Set Goals Goals Set with Patient Yes Goals Goals In 10 weeks, Allison will demonstrate:? 1) Decreased pn to <2/10 80% of the time with sustained gripping, carrying groceries and genlte volley ball play.. 2) I HEP for stretching, gradual strengthening and self mgmt strategies. 3) improved R sql data architect strength to 45# and pinch to 12# with R wrist/hand pain < 1/10. 4)??Pt to be fit with functional bracing (for R hand /wrist,) and use adaptive strategies to protect joint integrity to support less pain with ADL. Treatment Plan Treatment Plan Evaluation,Edema Control,Joint Mobilization,Manual Therapy, Splinting,Ultrasound, Therapeutic Exercise,Self Care /Home Management,Education Expected Frequency 1-2x Week Expected Duration 8-10 Weeks Occupational Therapy Billing Units Treatment Minutes Timed Treatment Minutes 33 Total Treatment Minutes 33 Billing Units Manual Therapy 1 Therapeutic Exercise 1
== END 2024-04-25 23:59 | disposition home or self-care (01) ==
PROVIDERS: PCP Family Medicine; Visit Provider Physician Assistant Surgical
DX: S62.304A Unspecified fracture of fourth metacarpal bone, right hand, initial encounter for closed fracture (principal); Z51.89 Encounter for other specified aftercare
CPT/HCPCS: 97110; 97140; 97165; 97535; X5282

== ENCOUNTER 2024-01-07 19:52 | Inpatient (IN) | payer MEDICAID, SELFPAY ==
[2024-01-07] VITALS (11 sets, daily range): BP systolic 123–146; BP diastolic 75–88; PULSE 73–88; RESP 14–18; TEMP 36.5; O2SAT 89–98; BMI 19.1
--- NOTE | 2024-01-07 20:07 | CRLHL7_ITS ---
For Patients: As a result of the Century Cures Act, medical imaging exams and procedure reports are released immediately into your electronic medical record. You may view this report before your referring provider. If you have questions, please contact your health care provider. EXAM: CT OF THE RIGHT HIP, WITHOUT CONTRAST CLINICAL INDICATION: Right hip pain following fall. COMPARISON STUDIES: None. TECHNICAL: Non-contrast CT of the pelvis with axial images. Sagittal oblique and coronal oblique reformatted images of the right hip created. FINDINGS: RIGHT HIP: Tracts internal fixation the right intertrochanteric region. No acute right hip fracture. Minimal hypertrophic change in the right hip joint without joint space narrowing. No hip joint effusion. OSSEOUS STRUCTURES: Acute fracture of the anterior superior aspect of the right sacral ala. Acute nondisplaced fracture of the right inferior pubic ramus. No osseous lesion. No evidence for chronic avascular necrosis. OTHER JOINT SPACES: Left Hip: No joint effusion. SI Joints: No hypertrophic change or ankylosis. Lumbar Spine: Unremarkable. MUSCLES AND TENDONS: No intramuscular mass or hematoma. No muscle atrophy. No retracted tendon tear. SOFT TISSUES: No subcutaneous edema, fluid collection or hematoma. INTRAPELVIC CONTENTS: No free fluid or hematoma. No inguinal hernia. NEUROVASCULAR STRUCTURES: No abnormality of the neurovascular structures. IMPRESSION: 1. Acute nondisplaced fractures of the right sacral ala and right inferior pubic ramus. 2. Tracts from prior hardware removal in the proximal right femur. 3. Minimal hypertrophic change of the right hip joint. Please note that all CT scans at this facility use dose modulation, iterative reconstruction, and/or weight-based dosing when appropriate to reduce radiation dose to as low as reasonably achievable. Dictated by Garrick Deras MD @ 01/09/2024 9:46:11 AM (Electronically Signed)
--- NOTE | 2024-01-07 20:13 | ED_ITS ---
HPI - Fall General Chief Complaint: Fall/Minor Trauma Stated Complaint: fell, hit head Time Seen by Provider: 01/07/24 19:55 History of Present Illness HPI Narrative: Patient is a 63-year-old woman who presents after stumbling over chair at her work. Injury occurred 3 hours ago. She is unable to bear weight secondary to severe right-sided hip and pelvis pain. She has no abdominal pain no pain below the mid shaft of the femur on the right. No left-sided pain. No nausea no vomiting no fevers no chills no headache no head injury and has no other major concerns. She otherwise is in good health but has had fractures in the past. Related Data Home Medications ?Medication ?Instructions ?Recorded ?Confirmed aspirin 81 mg tablet,delayed 81 mg PO DAILY 06/27/22 01/08/24 release lisinopril 10 mg tablet 10 mg PO DAILY 06/27/22 01/08/24 methocarbamol 500 mg tablet 500 mg PO Q8H PRN 06/27/22 01/08/24 Previous Rx's ?Medication ?Instructions ?Recorded cyclobenzaprine 5 mg tablet 5 - 10 mg (1 - 2 x 5 mg) PO TID 02/21/23 PRN muscle spasm #20 tabs hydrocodone 5 mg-acetaminophen 325 1 - 2 tab PO Q4-6H PRN pain #8 tabs 02/24/23 mg tablet Allergies Allergy/AdvReac Type Severity Reaction Status Date / Time infliximab [From Remicade] Allergy Severe Anaphylaxis Verified 01/03/24 13:44 codeine Allergy Intermediate GI upset Verified 01/03/24 13:44 amoxicillin [From Augmentin] Allergy Rash Verified 01/03/24 13:44 clavulanic acid Allergy Rash Verified 01/03/24 13:44 [From Augmentin] pollen extracts AdvReac Intermediate itching Verified 01/03/24 13:44 iohexol AdvReac Mild Verified 01/03/24 13:44 Review of Systems Status of ROS: Reports: 10 or more systems reviewed and unremarkable except as noted in History and below [facility] Medical History (Updated 01/08/24 @ 14:08 by Lee Ann Patel MD) CVA (cerebral vascular accident) ?I63.9 - Cerebral infarction, unspecified (ICD-10) Transient ischemic attack ?G45.9 - Transient cerebral ischemic attack, unspecified (ICD-10) Osteoarthritis of cervical spine ?M47.812 - Spondylosis without myelopathy or radiculopathy, cervical region (ICD-10) Cervicogenic headache ?G44.86 - Cervicogenic headache (ICD-10) Abrasion ?T14.8XXA - Other injury of unspecified body region, initial encounter (ICD- 10) Cerebrovascular small vessel disease ?I67.9 - Cerebrovascular disease, unspecified (ICD-10) Acute Crohn's disease ?K50.90 - Crohn's disease, unspecified, without complications (ICD-10) Hypothyroidism ?E03.9 - Hypothyroidism, unspecified (ICD-10) Subcapital fracture of neck of right femur (07/2008) ?S72.011A - Unspecified intracapsular fracture of right femur, initial encounter for closed fracture (ICD-10) Low back pain ?M54.50 - Low back pain, unspecified (ICD-10) Smoker ?F17.200 - Nicotine dependence, unspecified, uncomplicated (ICD-10) Wheezing ?R06.2 - Wheezing (ICD-10) Surgical History History of appendectomy ?Z90.49 - Acquired absence of other specified parts of digestive tract (ICD- 10) History of hysterectomy ?Z90.710 - Acquired absence of both cervix and uterus (ICD-10) History of open reduction and internal fixation (ORIF) procedure (07/22/08) ?Z98.890 - Other specified postprocedural states (ICD-10) Social History What is your current living situation?: I presently have a place to live Problems where you live: no known problems Problems where you live details: n/a In the past 12 months, utilities in danger of being shut off: no In past 12 months, lack of transportation kept you from medical appts, meetings, work, or getting things needed for daily living: yes In the past 12 mos, have been you worried that your food would run out before you had money to buy more?: sometimes true In the past 12 mos, the food you bought just didn't last and you didn't have money to buy more?: sometimes true Smoking Status: Current every day smoker What tobacco products do you use: cigarettes Do you use any of these nicotine containing products: None Second hand tobacco smoke exposure: No How often do you have a drink containing alcohol: never How often do you have six or more drinks on one occasion: Never AUDIT-C Alcohol total score: 0 Non-prescribed substance use: marijuana (any form) Non-prescribed substance use details: Just a little Caffeine: Yes (coffee and some soda) How often does anyone, including family, friends and others, physically hurt you : never How often does anyone, including family, friends and others, insult or talk down to you: never How often does anyone, including family, friends and others, threaten you with harm: never How often does anyone, including family, friends and others, scream or curse at you: never Exam Narrative: Exam Narrative: EXAM GENERAL: Patient appears uncomfortable and tearful. EYES: No scleral icterus. LYMPH: No supraclavicular or cervical lymphadenopathy. SKIN: Visible skin seen during exam normal or with benign process only. EXT: Pain with minimal manipulation of the right leg. No obvious abnormalities on gross inspection. HEART: Regular rate and rhythm with no murmurs, rubs, or gallops. LUNGS: Clear to auscultation bilaterally with no crackles or wheezes. ABD: Soft, non tender, non distended. PSYCH: Good eye contact, speech is not pressured. Const: Vital Signs, click to edit/add: Vital Signs - 24 hr 01/08/24 11:00 01/08/24 14:47 01/08/24 14:47 Temperature 99.6 F Pulse Rate [Pulse Oximeter] 91 62 Respiratory Rate 22 14 Blood Pressure [Le ft Arm] Blood Pressure [Ri ght Arm] 135/92 H Pulse Oximetry 91 94 Oxygen Delivery Me thod Nasal Cannula Oxygen Flow Rate 1 01/08/24 14:47 01/08/24 15:18 Temperature 98.5 F Pulse Rate [Pulse Oximeter] 62 Respiratory Rate 14 14 Blood Pressure [Le ft Arm] 110/64 Blood Pressure [Ri ght Arm] Pulse Oximetry 94 94 Oxygen Delivery Me thod Nasal Cannula Nasal Cannula Oxygen Flow Rate 1 1 Course Course ED Course: Patient seen and examined. I did ask for a CT of the pelvis. Reevaluation(s) Reevaluation #1: Further history reveals that the patient did in fact hit her head as part of the fall. We will add CT of the head and neck as well as CBC basic metabolic panel and INR. I do suspect she has a fractured right hip. X-ray is pending. I have given her 500 mL of normal saline 4 mg of Zofran 0.5 mg of Dilaudid and 25 mg of fentanyl. Vital Signs Vital signs: Initial Vital Signs Temperature 97.7 F 01/07/24 19:58 Temperature Source Temporal Artery Scan 01/07/24 19:58 Pulse Rate 88 01/07/24 19:58 Respiratory Rate 16 01/07/24 19:58 Blood Pressure 146/88 H 01/07/24 19:58 Blood Pressure Mean 107 H 01/07/24 19:58 Blood Pressure Position Sitting 01/07/24 19:58 Pulse Oximetry 97 01/07/24 19:58 Oxygen Delivery Method Room Air 01/07/24 19:58 Vital Signs Temperature 97.7 F 01/07/24 19:58 Pulse Rate 88 01/07/24 19:58 Respiratory Rate 16 01/07/24 19:58 Blood Pressure 146/88 H 01/07/24 19:58 Pulse Oximetry 97 01/07/24 19:58 Oxygen Delivery Method Room Air 01/07/24 19:58 Temperature 98.6 F 01/09/24 03:00 Pulse Rate 74 01/09/24 03:00 Respiratory Rate 16 01/09/24 03:00 Blood Pressure 142/74 H 01/09/24 03:00 Pulse Oximetry 94 01/09/24 03:00 Oxygen Delivery Method Room Air 01/09/24 03:00 Oxygen Flow Rate 1 01/08/24 23:00 Medications Administered Medications: Generic Name Dose Route Start Last Admin Trade Name Freq PRN Reason Stop Dose Admin Acetaminophen 1,000 mg 01/08/24 09:00 01/08/24 20:32 Acetaminophen 500 Mg Tablet PO 1,000 mg TID RAMONA Administration Celecoxib 200 mg 01/08/24 09:00 01/08/24 20:31 Celecoxib 200 Mg Capsule PO 200 mg BID RAMONA Administration Enoxaparin Sodium 40 mg 01/08/24 21:00 01/08/24 20:33 Enoxaparin 40 Mg/0.4 Ml Inj SUBCUT 40 mg HS RAMONA Administration Levofloxacin 500 mg 01/08/24 11:30 01/08/24 12:53 Levofloxacin 500 Mg Tablet PO 01/12/24 11:31 500 mg Q24H RAMONA Administration Nicotine 1 patch 01/08/24 13:52 01/08/24 17:32 Nicotine 7 Mg Patch TRANSDERMA 1 patch Q24H PRN Administration Ondansetron HCl 4 mg 01/08/24 01:17 01/08/24 07:31 Ondansetron 2 Mg/Ml Inj IVP 4 mg Q4H PRN Administration Nausea Oxycodone HCl 5 - 10 mg 01/08/24 08:47 01/09/24 05:45 Oxycodone 5 Mg Tablet PO 5 mg Q4H PRN Administration Moderate Pain Senna/Docusate Sodium 1 tab 01/08/24 01:17 01/08/24 14:22 Sennosides/Docusate Tablet PO 1 tab DAILY PRN Administration Sodium Chloride 5 ml 01/08/24 09:00 01/08/24 20:37 Sodium Chloride 0.9 % (Flush) 10 Ml Syringe IVF 5 ml BID RAMONA Administration Discontinued Medications Generic Name Dose Route Start Last Admin Trade Name Freq PRN Reason Stop Dose Admin Fentanyl 25 mcg 01/07/24 21:09 01/07/24 21:14 Fentanyl 100 Mcg/2 Ml Inj IVP 01/07/24 21:10 25 mcg ONCE ONE Administration Fentanyl 25 mcg 01/08/24 00:32 01/08/24 00:34 Fentanyl 100 Mcg/2 Ml Inj IVP 01/08/24 00:33 25 mcg ONCE ONE Administration Gabapentin 300 mg 01/08/24 09:00 01/09/24 01:30 Gabapentin 300 Mg Capsule PO Not Given BID RAMONA Hydromorphone HCl 0.5 mg 01/07/24 20:20 01/07/24 20:22 Hydromorphone 0.5 Mg/0.5 Ml Inj IVP 01/07/24 20:21 0.5 mg ONCE ONE Administration Hydromorphone HCl 0.5 mg 01/08/24 01:17 01/08/24 02:00 Hydromorphone 0.5 Mg/0.5 Ml Inj IVP 0.5 mg Q2H PRN Administration Sodium Chloride 500 mls @ 500 mls/hr 01/07/24 20:26 01/07/24 21:41 0.9 % Sodium Chloride 500 Ml IV 06/01/24 21:25 Infused .Q1H ONE Infusion Ondansetron HCl 4 mg 01/07/24 20:26 01/07/24 20:29 Ondansetron 2 Mg/Ml Inj IVP 01/07/24 20:27 4 mg ONCE ONE Administration Oxycodone HCl 5 mg 01/08/24 01:17 01/08/24 07:35 Oxycodone 5 Mg Tablet PO 5 mg Q4H PRN Administration Moderate Pain MDM - Fall Lab Data Labs: Lab Results 01/07/24 01/07/24 01/08/24 Range/Units 20:19 21:28 08:05 WBC 16.35 H (4.50-11.00) K/uL RBC 4.45 (4.00-5.20) m/uL Hgb 13.3 (12.0-16.0) gm/dL Hct 40.7 (33.0-51.0) % MCV 92 (80-100) fL MCH 30 (26-34) pg MCHC 33 (32-36) gm/dL RDW Coeff of David 12.7 (11.5-15.5) % Plt Count 191 (140-440) K/uL Neut % (Auto) 76.8 H (42.0-72.0) % Lymph % (Auto) 14.2 L (20-44) % [place] % (Auto) 7.2 (0.0-11.0) % Eos % (Auto) 1.0 (0.0-7.0) % Baso % (Auto) 0.3 (0.0-3.0) % Neut # (Auto) 12.60 H (1.7-7.0) K/uL Lymph # (Auto) 2.30 (0.90-2.90) K/uL [place] # (Auto) 1.20 H (0.00-0.90) K/UL Eos # (Auto) 0.20 (0.00-0.50) K/uL Baso # (Auto) 0.00 (0.00-0.30) K/uL Abs Immat Gran (auto) 0.10 (0.00-0.30) K/uL Imm/Tot Granulo (auto) 0.5 % INR 0.95 (0.91-1.10) Sodium 140 (135-149) mmol/L Potassium 4.3 (3.6-5.1) mmol/L Chloride 109 (96-114) mmol/L Carbon Dioxide 26 (20-32) mmol/L Anion Gap 5 L (7-15) mEq/L BUN 13 (7-30) mg/dL Creatinine 0.6 (0.5-1.5) mg/dL Estimated Creat Clear 48.03 Estimated GFR 101 ml/min Glucose 100 (60-115) mg/dL Calcium 9.5 (8.4-10.6) mg/dL Urine Color Yellow (Yellow) Urine Appearance Clear (Clear) Urine pH 7.0 (5.0-8.5) Ur Specific [place] 1.025 (1.000-1.030) Urine Protein 1+ A (Negative) Urine Glucose (UA) Negative (Negative) Urine Ketones Negative (Negative) Urine Blood 1+ A (Negative) Urine Nitrite Negative (Negative) Urine Bilirubin Negative (Negative) Urine Urobilinogen 0.2 (0.2-1.0) Ur Leukocyte Esterase Negative (Negative) Urine RBC 0-2 (0-2) Urine WBC 2-5 (0-5) Ur Squamous Epith Cells Few (None-Few) Amorphous Sediment Few A (None) Urine Bacteria Few A (None) Urine Mucus Few A (None) Urine Yeast Few A (None) Urine Opiates Screen POSITIVE A (Negative) Ur Oxycodone Screen POSITIVE A (Negative) Urine Methadone Screen Negative (Negative) Ur Barbiturates Screen Negative (Negative) U Tricyclic Antidepress Negative (Negative) Ur Phencyclidine Scrn Negative (Negative) Ur Amphetamines Screen Negative (Negative) U Methamphetamines Scrn Negative (Negative) U Benzodiazepines Scrn Negative (Negative) Urine Cocaine Screen Negative (Negative) U Marijuana (THC) Screen POSITIVE A (Negative) Ur Drug Screen Comment See Note Lab Acknowledgement 01/08/24 01/08/24 Range/Units 08:10 09:59 WBC 10.73 (4.50-11.00) K/uL RBC 4.04 (4.00-5.20) m/uL Hgb 12.0 (12.0-16.0) gm/dL Hct 37.1 (33.0-51.0) % MCV 92 (80-100) fL MCH 30 (26-34) pg MCHC 32 (32-36) gm/dL RDW Coeff of David 12.6 (11.5-15.5) % Plt Count 166 (140-440) K/uL Neut % (Auto) 80.5 H (42.0-72.0) % Lymph % (Auto) 9.1 L (20-44) % [place] % (Auto) 8.9 (0.0-11.0) % Eos % (Auto) 0.9 (0.0-7.0) % Baso % (Auto) 0.4 (0.0-3.0) % Neut # (Auto) 8.60 H (1.7-7.0) K/uL Lymph # (Auto) 1.00 (0.90-2.90) K/uL [place] # (Auto) 1.00 H (0.00-0.90) K/UL Eos # (Auto) 0.10 (0.00-0.50) K/uL Baso # (Auto) 0.04 (0.00-0.30) K/uL Abs Immat Gran (auto) 0.02 (0.00-0.30) K/uL Imm/Tot Granulo (auto) 0.2 % INR (0.91-1.10) Sodium (135-149) mmol/L Potassium (3.6-5.1) mmol/L Chloride (96-114) mmol/L Carbon Dioxide (20-32) mmol/L Anion Gap (7-15) mEq/L BUN (7-30) mg/dL Creatinine (0.5-1.5) mg/dL Estimated Creat Clear Estimated GFR ml/min Glucose (60-115) mg/dL Calcium (8.4-10.6) mg/dL Urine Color (Yellow) Urine Appearance (Clear) Urine pH (5.0-8.5) Ur Specific [place] (1.000-1.030) Urine Protein (Negative) Urine Glucose (UA) (Negative) Urine Ketones (Negative) Urine Blood (Negative) Urine Nitrite (Negative) Urine Bilirubin (Negative) Urine Urobilinogen (0.2-1.0) Ur Leukocyte Esterase (Negative) Urine RBC (0-2) Urine WBC (0-5) Ur Squamous Epith Cells (None-Few) Amorphous Sediment (None) Urine Bacteria (None) Urine Mucus (None) Urine Yeast (None) Urine Opiates Screen (Negative) Ur Oxycodone Screen (Negative) Urine Methadone Screen (Negative) Ur Barbiturates Screen (Negative) U Tricyclic Antidepress (Negative) Ur Phencyclidine Scrn (Negative) Ur Amphetamines Screen (Negative) U Methamphetamines Scrn (Negative) U Benzodiazepines Scrn (Negative) Urine Cocaine Screen (Negative) U Marijuana (THC) Screen (Negative) Ur Drug Screen Comment Lab Acknowledgement Test Added
[2024-01-07] MEDS: HYDROmorphone 0.5 mg/0.5 ml inj IVP (20:22)
[2024-01-07] MEDS: ONDANSETRON 2 MG/ML inj 4 MG IVP (20:29)
--- OUTSIDE RECORDS SUMMARY | 2024-01-07 20:38 | XMS_ITS | Clinical Summary ---
Author Organization [facility] Address [place], [place] [address] Care Team Providers Care Upper Shaper Name Role Phone Andie Holliday MD Primary Care Provider [phone] Allergies Active Allergy Reactions Criticality Noted Date Comments Amoxicillin-Pot Clavulanate Rash 04/26/2013 Codeine GI Upset,Nausea Only 09/02/2010 Upset stomach Iohexol Nausea Only 07/14/[address] contrast (Omnipaque) caused itching all over on 10/04/14. Pollen Extracts Runny Nose,Itching 04/25/2013 Seasonal allergies Infliximab Anaphylaxis High 09/19/2020 Medications Medication Sig Dispensed Refills Start Date End Date Status aspirin (ECOTRIN) 81 mg enteric coated tabletIndications:Ce rebrovascular accident (CVA) due to thrombosis of left middle cerebral artery (HC),Cerebrovascular accident (CVA) due to thrombosis of left anterior cerebral artery (HC) Take 1 tablet by mouth once daily with a meal. 0 04/25/2020 Active fluticasone (50 mcg per actuation) nasal solution (FLONASE) Inhale 2 Sprays to both nostrils once daily. 11/06/2020 Active cetirizine (ZYRTEC) 10 mg tablet Take 1 Tablet (10 mg) by mouth once daily. 0 11/17/2020 Active cyclobenzaprine (FLEXERIL) 5 mg tabletIndications:Saranya mbar back pain Take 1 Tablet (5 mg) by mouth 3 times daily if needed for Muscle Spasm (back pain). 30 Tablet 02/11/2022 Active rosuvastatin (CRESTOR) 20 mg tabletIndications:Hi story of CVA (cerebrovascular accident) Take 1 Tablet (20 mg) by mouth at bedtime. 90 Tablet 3 05/05/2022 Active nicotine (Nicotrol) 10 mg inhalerIndications:E ncounter for smoking cessation counseling Inhale 10 mg by mouth every 2 hours if needed for Nicotine Craving. 168 Each 2 06/01/2022 Active lisinopriL (PRINIVIL; ZESTRIL) 10 mg tabletIndications:Ce rebrovascular accident (CVA) due to thrombosis of left middle cerebral artery (HC) TAKE 1 TABLET(10 MG) BY MOUTH EVERY DAY 90 Tablet 09/15/2023 Active Active Problems Problem Noted Date Diagnosed Date History of colon polyps 02/17/2022 Overview: Colonoscopy 02/2022 normal, repeat in 5 years Chronic obstructive pulmonar y disease, unspecified COPD type 12/30/2020 Routine general medical exam ination at a health care facility 08/13/2020 Cerebrovascular accident (CV A) due to thrombosis of left anterior cerebral artery 08/13/2020 Cerebrovascular accident (CV A) due to thrombosis of left middle cerebral artery 08/13/2020 Encounter for smoking cessation counseling 08/13 Hypothyroidism (acquired) 11/18/2017 Psoriasis 11/16/2017 Vasomotor symptoms due to menopause 03/02/2017 Crohn's disease of both smal l and large intestine with rectal bleeding 03/02/2017 Overview: Colonoscopy 02/2022 normal, repeat in 5 years Crohn disease 10/07/2011 Chronic alcohol abuse 09/02/2010 Subcortical infarction Hyperlipidemia LDL goal <70 Tobacco abuse Cerebrovascular small vessel disease Lung nodule Overview: LLL, 6 mm- CT 02/18/14 Resolved Problems Problem Noted Date Diagnosed Date Resolved Date Symptoms, such as flushing, sleeplessness, headache, lack of concentration, associated with the menopause 03/02/2017 03/02/2017 Encounters Date Type Department Care Team Description 12/22/2023 3:15 PM CDT Ancillary Procedure [facility] [address] [place] [address] 12/22/2023 3:00 PM CDT Ancillary Procedure [facility] [address] [place] [address] 12/22/2023 2:25 PM CDT Office Visit [facility] [address] [place] [address] Andie Holliday MD Hip Pain/problem (Right, 1 month) 12/22/2023 Travel from Last 3 Months Immunizations Name Administration Dates Next Due COVID-19 vaccine ([employer] 30mcg/0.3mL) 12YO+ [place] PF, MDV 02/12/2022,02/11/2022 COVID-19 vaccine ([employer]ech 30mcg/0.3mL) PF, MDV 12/23/2020,12/23/2020,12/02/2020 Influenza Virus, Unspecified 05/20/2017 Influenza, IIV3 (Age >=3 years) 05/03/2012 Influenza, IIV4 06/01/2022,05/11/2017,10/06/2014 MMR 10/31/2009 Pneumococcal Conj 20-valent (Prevnar 20) 022,02/11/2022 Pneumococcal Poly,23-Valent (Pneumovax) 05/03/20 12 Tdap 06/01/2022,05/17/2012 Family History Medical History Relation Name Comments Heart Disease Father Cancer Mother Ovarian Cancer-ovarian Mother Other Other NO FH of breast , uterine, colon cancer Cancer-breast No Family History Relation Name Status Comments Brother 1 Alive Brother 2 Alive Father Mother Other Sister Alive Social History Tobacco Use Types Packs/Day Years Used Date Smoking Tobacco: Some Days Cigarettes 0.5 31 Started: 02/05/1982; Last attempted to quit: 02/05/2013 Smokeless Tobacco: Never Tobacco Cessation:Ready to Q uit: No; Counseling Given: Yes Alcohol Use Standard Drinks/Week Comments Not Currently 4 (1 standard drink = 0.6 oz pur e alcohol) PHQ-2 Answer Date Recorded PHQ-2 TOTAL SCORE 0 11/12/2021 Social Connections Answer Date Recorded Frequency of Communication with Friends and Fami ly 0 12/22/2023 Financial Resource Strain Answer Date R ecorded Difficulty of Paying Living Expenses 1 12/22/2023 Difficulty of Paying Living Expenses 2 12/22/2023 Food Insecurity Answer Date Recorded Worried About Running Out of Food in the Last Ye ar 1 12/22/2023 Transportation Needs Answer Date Record ed Lack of Transportation (Medical) 1 12/22/2023 Housing Stability Answer Date Recorded Unable to Pay for Housing in the Last Year 2 12/22/2023 Sex and Gender Information Value Date Recorded Sex Assigned at Not on file Gender Identity Not on file Sexual Orientation Not on file Obstetrics History Last Filed Vital Signs Vital Sign Reading Time Taken Comments Blood Pressure 120/83 12/22/2023 2:37 PM CDT Pulse 79 12/22/2023 2:37 PM CDT Temperature 37.2 ??C (98.9 ??F) 06/01/2022 2:14 PM CD T Respiratory Rate 16 04/24/2020 8:25 AM CDT Oxygen Saturation 97% 12/22/2023 2:37 PM CDT Inhaled Oxygen Concentration - - Weight 57.8 kg (127 lb 6.4 oz) 12/22/2023 2:37 P M CDT Height 167.6 cm (5' 6) 06/01/2022 2:14 PM CDT Body Mass Index 20.56 06/01/2022 2:14 PM CDT Plan of Treatment Health Maintenance Due Date Last Done Comments Zoster (shingles) series for age 50+ (1 of 2) 2011 Depression screening for age 12+ 11/16/2022 11/16/2021, 11/12/2021, 08/13/2020, Additional history exists COVID-19 vaccine series (2022- season) 2023 02/12/2022, 02/11/2022, 12/23/2020, Additional history exists BMI (ht and wt on same day) for age 18+ 06/01/2023 06/01/2022, 11/12/2021, 11/17/2020, Additional history exists Mammogram for age 45-75 06/18/2023 06/18/20, 05/20/2017, 08/18/2015, Additional history exists Influenza for age 50-64 04/08/2024 06/01/20, 05/20/2017, 05/11/2017, Additional history exists Lipids for age 45-75 02/11/2027 02/11/2022, 04/23/2020, 02/25/2016 Colonoscopy through age 75 02/15/202702/15, 02/15/2022, 04/29/2016, Additional history exists Tetanus booster 06/01/2032 06/01/2022, 05/17/2012 HIV for age 15-65 Completed 09/19/2020 Hepatitis C screening for ag e 18-79 Completed 09/19/2020 Pneumococcal series for age 6-64 Completed 02/12/2022, 02/11/2022, 05/03/2012 Tdap Completed 06/01/2022, 05/17/2012 Medical Devices Implanted Type Area Center Administrator Device Identifier Shelf Expiration Date Model / Serial / Lot Guide Pin, Theaded 08/15 X 9 - [id number] Implanted:Qty: 1 on 04/26/2013 by John Hauser MD at [facility] Hip R-BIOMET [id number] / / NA Procedures Procedure Name Priority Date/Time Associated Diagnosis Comments XR SPINE LUMBAR 3 VIEWS Routine 12/22/2023 3:17 PM CDT Hip pain, right XR HIP 1 VIEW W PELVIS RIGHT Routine 12/22/2023 3:16 PM CDT Hip pain, right XR MAMMO BILAT SCREENING Routine 06/18/2022 1:52 PM SCOURING MACHINE OPERATOR Visit for screening mammogram COLONOSCOPY SCREENING Routine 02/15/2022 12:00 AM CDT Crohn's disease without complication, unspecified gastrointestinal tract location (HC) LIPID PANEL W REFLEX MEASURED LDL Routine 02/11/2022 4:20 PM CDT Expressive language disorder Personal history of transient cerebral ischemia ANTI HIV 1/2 Routine 09/19/2020 3:15 PM SCOURING MACHINE OPERATOR Crohn's disease without complication, unspecified gastrointestinal tract location (HC) Diarrhea, unspecified type ANTI HCV Routine 09/19/2020 3:15 PM SCOURING MACHINE OPERATOR Need for hepatitis C screening test from Last 3 Months or Most Recently Relevant to Health Maintenance Results * XR SPINE LUMBAR 3 VIEWS (12/22/2023 3:17 PM CDT) Anatomical Region Laterality Modality LUMBAR SPINE Computed Radiogr aphy 12/23/2023 6:52 AM CDT Impressions 12/23/2023 6:52 AM CDT Mild degenerative disc disease lumbar spine, unchanged. No fracture deformity. Mild L5-S1 facet degeneration. Dictated by Mart Ortiz MD @ 12/23/2023 6:52:19 AM (Electronically Signed) Narrative 12/23/2023 6:52 AM CDT For Patients: ??As a result of the Cures Act, medical imaging exams and procedure reports are released immediately into your electronic medical record. ??You may view this report before your referring provider. ??If you have questions, please contact your health care provider. INDICATION: Right hip pain TECHNIQUE: 3-view lumbar spine. COMPARISON: 12/30/2020 FINDINGS: Vascular calcifications are present. There is no lumbar vertebral body compression fracture. Mild degenerative spurring at the thoracolumbar junction. Mild facet degeneration at L5-S1. SI joints normal. Procedure Note Mart Ortiz MD - 12/23/2023 For Patients: As a result of the Cures Act, medical imagingexams and procedure reports are released immediately into your electronicmedical record. You may view this report before your referring provider.If you have questions, please contact your health care provider. INDICATION: Right hip pain TECHNIQUE: 3-view lumbar spine. COMPARISON: 12/30/2020 FINDINGS: Vascular calcifications are present. There is no lumbar vertebral bodycompression fracture. Mild degenerative spurring at the thoracolumbarjunction. Mild facet degeneration at L5-S1. SI joints normal. IMPRESSION: Mild degenerative disc disease lumbar spine, unchanged. No fracturedeformity. Mild L5-S1 facet degeneration. Dictated by Mart Ortiz MD @ 12/23/2023 6:52:19 AM (Electronically Signed) Andie Holliday MD GENERAL IMAGING * XR HIP 1 VIEW W PELVIS RIGHT (12/22/2023 3:16 PM CDT) Anatomical Region Laterality Modality HIPS, HIPR, Pelvis Computed Radi ography 12/23/2023 6:50 AM CDT Narrative 12/23/2023 6:50 AM CDT For Patients: ??As a result of the Cures Act, medical imaging exams and procedure reports are released immediately into your electronic medical record. ??You may view this report before your referring provider. ??If you have questions, please contact your health care provider. Indication: Hip pain Technique: Pelvis and right hip 2 views Comparison: CT abdomen and pelvis 06/01/2022 Findings: Postop changes to the right proximal femur again noted. Vascular calcifications are present. There is no fracture. The hip joints are maintained bilaterally. Impression: Chronic postop changes to the right proximal femur. Preserved joint spaces. No fracture. Dictated by Mart Ortiz MD @ 12/23/2023 6:50:35 AM (Electronically Signed) Procedure Note Mart Ortiz MD - 12/23/2023 For Patients: As a result of the Cures Act, medical imagingexams and procedure reports are released immediately into your electronicmedical record. You may view this report before your referring provider.If you have questions, please contact your health care provider. Indication: Hip pain Technique: Pelvis and right hip 2 views Comparison: CT abdomen and pelvis 06/01/2022 Findings: Postop changes to the right proximal femur again noted. Vascularcalcifications are present. There is no fracture. The hip joints aremaintained bilaterally. Impression: Chronic postop changes to the right proximal femur. Preserved jointspaces. No fracture. Dictated by Mart Ortiz MD @ 12/23/2023 6:50:35 AM (Electronically Signed) Andie Holliday MD GENERAL IMAGING * XR MAMMO BILAT SCREENING (06/18/2022 1:52 PM SCOURING MACHINE OPERATOR) Anatomical Region Laterality Modality BREASTS, Breast Left, Breast Right Bilateral Mammography Impressions 06/21/2022 4:14 PM SCOURING MACHINE OPERATOR ??There is no radiographic evidence for malignancy. ??Recommend annual mammograms. MAMMOGRAM ASSESSMENT: ??ACR 1 Negative PATIENTS: You will also receive a letter with your examination results in an easy to read format. ??If you have questions about your results, please contact your referring provider. Narrative 06/21/2022 4:14 PM SCOURING MACHINE OPERATOR For Patients: As a result of the Century Cures Act, medical imaging exams and procedure reports are released immediately into your electronic medical record. You may view this report before your referring provider. If you have questions, please contact your health care provider. XR MAMMO BILAT SCREENING [[id number]] CLINICAL HISTORY: ??This is an asymptomatic 61 y.o. patient. INDICATION FOR EXAM: Mammogram Screening. TECHNIQUE: CC & MLO views were obtained. ??This study was evaluated with the assistance of Computer-Aided Detection. COMPARISON FILM: Yes 05/20/17 [employer] ?? FINDINGS: ??The breasts are heterogeneously dense, which may obscure small masses. There are no dominant masses, suspicious micro calcifications or areas of architectural distortion. Andie Holliday MD MAMMO * COLONOSCOPY SCREENING (02/15/2022 12:00 AM CDT) Kayden Jaramillo MD GI PROCEDURE ORD * LIPID PANEL W REFLEX MEASURED LDL (02/11/2022 4:20 PM CDT) CHOLESTEROL,TOTAL 172 100 - 199 mg/dL 02/12/2022 3:18 PM CDT [facility] TRIGLYCERIDES 92 <150 mg/dL 02/12/2022 3:18 PM CDT [facility] HDL CHOLESTEROL 52 >40 mg/dL 3:18 PM CDT [facility] NON-HDL CHOLESTEROL 120 <145 mg/dl 02/12/2022 3:18 PM CDT [facility] CHOL/HDL RATIO 3.31 <4.50 02/12/2022 3:18 PM CDT [facility] LDL CHOLESTEROL 102 <=130 mg/dL 02/12/2022 3:18 PM CDT [facility] VLDL CHOLESTEROL 18 <=30 mg/dL 02/12/2022 3:18 PM CDT [facility] PROVIDER ORDERED STATUS RANDOM 02/12/2022 3:18 PM CDT [facility] Blood BLOOD SPECIMEN / Unknown Venipuncture / Unknown 02/11/2022 4:20 PM CDT 02/11/2022 4:22 PM CDT Andie Holliday MD CHEMISTRY [facility] [address] [place] [address], * ANTI HCV (09/19/2020 3:15 PM SCOURING MACHINE OPERATOR) HEPATITIS C ANTIBODY Non-React yvette Non-React yvette 09/19/2020 9:14 PM SCOURING MACHINE OPERATOR [facility] Comment:Antibodies to HCV no t detected; does not exclude the possibility of exposure to HCV. Blood BLOOD SPECIMEN / Unknown Venipuncture / Unknown 09/19/2020 3:15 PM SCOURING MACHINE OPERATOR 09/19/2020 3:21 PM SCOURING MACHINE OPERATOR Andie Holldiay MD SEND OUTS Performing Organization Address City/[facility]/ZIP Co de Phone Number [facility] [address] [place] [address], * ANTI HIV 1/2 (09/19/2020 3:15 PM SCOURING MACHINE OPERATOR) HIV-1/HIV-2 ANTIBODY Non-Reacti ve Non-Reacti ve 09/19/2020 9:13 PM SCOURING MACHINE OPERATOR [facility] Comment:HIV-1 p24 and HIV-1/ HIV-2 Ab not detected. Blood BLOOD SPECIMEN / Unknown Venipuncture / Unknown 09/19/2020 3:15 PM SCOURING MACHINE OPERATOR 09/19/2020 3:17 PM SCOURING MACHINE OPERATOR Kayden Jaramillo MD SEND OUTS [facility] [address] [place] [address], from Last 3 Months or Most Recently Relevant to Health Maintenance Advance Directives * Full Code (Latest Code Status on File) Date Activated Date Inactivated Comments 04/22/2020 2:09 PM 04/24/2020 3:36 PM Question Answer Comments Code Status Discussion: Discussed * Full Code Date Activated Date Inactivated Comments 04/26/2013 10:14 AM 04/26/2013 7:47 PM * Full Code Date Activated Date Inactivated Comments 04/26/2013 7:14 AM 04/26/2013 10:14 AM Care Teams Upper Shaper Relationship Specialty Start Date End Date Andie Holliday MD [address] [place] [address] PCP - General Family Practice 08/13/20
[2024-01-07] MEDS: 0.9 % SODIUM CHLORIDE 500 ML 500 ML IV (20:40)
--- NOTE | 2024-01-07 20:44 | CRLHL7_ITS ---
For Patients: As a result of the Cures Act, medical imaging exams and procedure reports are released immediately into your electronic medical record. You may view this report before your referring provider. If you have questions, please contact your health care provider. INDICATION: Fall. Head injury. COMPARISON: None. TECHNIQUE: Noncontrast CT head. FINDINGS: Normal brain parenchymal morphology. No acute intracranial hemorrhage, acute infarct, mass effect, fracture. Low-attenuation lesion the left basal ganglia may be secondary to old infarct or prominent perivascular space. No midline shift. No abnormal ventricular dilatation. Normal calvarium and skull base. Visualized paranasal sinuses mastoid air cells are clear. Normal orbits bilaterally. IMPRESSION: 1. No acute intracranial abnormality. 2. Normal brain parenchymal morphology. Please note that all CT scans at this facility use dose modulation, iterative reconstruction, and/or weight-based dosing when appropriate to reduce radiation dose to as low as reasonably achievable. Dictated by Yakov Navarrete MD @ 01/07/2024 10:27:46 PM (Electronically Signed)
--- NOTE | 2024-01-07 20:44 | CRLHL7_ITS ---
For Patients: As a result of the Century Cures Act, medical imaging exams and procedure reports are released immediately into your electronic medical record. You may view this report before your referring provider. If you have questions, please contact your health care provider. INDICATION: fall CT CERVICAL SPINE WITHOUT CONTRAST TECHNIQUE: Multidetector axial CT imaging was performed through the cervical spine, without contrast. Sagittal and coronal reconstructions were generated. FINDINGS: No acute fractures are identified. There is straightening of cervical lordosis, possibly due to muscle spasm. Osseous alignment is otherwise unremarkable and no subluxation is seen. Prevertebral soft tissues appear normal. There are multilevel cervical spine degenerative changes, including degenerative disc disease at C4-5 and C5-6, and scattered cervical facet joint degenerative changes. Included portions of the airway and lung apices are unremarkable aside from biapical scarring. IMPRESSION: 1. Straightened lordosis, possibly due to muscle spasm. No fracture, subluxation, or other acute finding identified. 2. Cervical spondylosis, as noted above. MARIO HECTOR MD [facility] Please note that all CT scans at this facility use dose modulation, iterative reconstruction, and/or weight-based dosing when appropriate to reduce radiation dose to as low as reasonably achievable. Dictated by: Butch Hector MD @ 01/07/2024 23:09:21 (Electronically Signed)
[2024-01-07 20:56] LABS: Basophils Percent Auto 0.3 % (0.0-3.0); Hematocrit 40.7 % (33.0-51.0); Hemoglobin* 13.3 gm/dL (12.0-16.0); Immature Granulocytes Pct Auto 0.5 %; Lymphocytes Percent Auto 14.2 % (20-44); Mean Corpuscular HGB Conc 33 gm/dL (32-36); Mean Corpuscular Hemoglobin 30 pg (26-34); Mean Corpuscular Volume 92 fL (80-100); Monocytes Percent Auto 7.2 % (0.0-11.0); Neutrophils Percent Auto 76.8 % (42.0-72.0); Platelet Count* 191 K/uL (140-440); RDW Coefficient of Variation % 12.7 % (11.5-15.5); Red Blood Count 4.45 m/uL (4.00-5.20); White Blood Count* 16.35 K/uL (4.50-11.00)
[2024-01-07 21:01] LABS: Slide Review Reflex No
[2024-01-07 21:08] LABS: Chloride* 109 mmol/L (96-114); Potassium* 4.3 mmol/L (3.6-5.1); Sodium* 140 mmol/L (135-149)
[2024-01-07 21:11] LABS: Anion Gap 5 mEq/L (7-15); Blood Urea Nitrogen* 13 mg/dL (7-30); Carbon Dioxide* 26 mmol/L (20-32); Creatinine* 0.6 mg/dL (0.5-1.5); Est. Creatinine Clearance* 48.03; Estimated Glomerular Filt Rate 101 ml/min
[2024-01-07 21:12] LABS: Calcium* 9.5 mg/dL (8.4-10.6); Glucose* 100 mg/dL (60-115)
[2024-01-07] MEDS: fentaNYL 100 MCG/2 ML inj 25 MCG IVP (21:14)
[2024-01-07 21:49] LABS: INR 0.95 (0.91-1.10); Prothrombin Time 13.2 Seconds
[2024-01-08] VITALS (10 sets, daily range): BP systolic 110–144; BP diastolic 62–92; PULSE 62–91; RESP 14–22; TEMP 36.9–37.8; O2SAT 91–99; BMI 20.6
[2024-01-08] MEDS: fentaNYL 100 MCG/2 ML inj 25 MCG IVP (00:34)
--- NOTE | 2024-01-08 01:25 | W.PM.THH&P_ITS ---
Telehealth- H&P: HPI History of Present Illness Time Seen by Provider: 02:00 Date Seen: 01/08/24 Chief complaint: fell, hit head Narrative: Allison Resendez is seen as an Interactive Telehealth visit. Allison Resendez is a 63 year old male who is A female who presents to the hospital after a fall. She was at work when she was trying to stand over something she tripped and fell with a mechanical fall. She fell and hit her head on the wall and landed on her side. She immediately had severe pain associated with falling. Her hip was hurting. However she was able to stand up and check she started to walk. She initially thought she was okay but as she continued to walk her pain to the point where she needed assistance in ambulating. Somebody saw her on the ground picked up and brought her to the hospital In the hospital her labs showed elevated white count but no other significant abnormalities. X-ray was negative but his CT scan showed a pelvic fracture. Nondisplaced. This case was reviewed with orthopedics and they felt that this patient would likely have a nonoperative case. Patient's pain was severe and was not controlled with IV medication despite being relatively narcotic na?ve. Review of Systems Const: Reports: fatigue; Denies: fever, chills or change in weight Eyes: Denies: change in vision or blurry vision ENMT: Denies: throat pain, neck pain or throat swelling Cardio: Denies: edema, lightheadedness, shortness of breath with exertion or leg pain with exertion Resp: Denies: shortness of breath GI: Denies: abdominal pain, vomiting or coffee grounds in vomit : Reports: pelvic pain Musculo: Reports: extremity pain and limited range of motion; Denies: neck pain Neuro: Denies: headache, numbness in extremities or weakness in extremities Endo: Reports: fatigue; Denies: excessive urination Solomon/Lymph: Denies: easy bruising Allergy/Immuno: Denies: throat swelling [facility] Medical History Transient ischemic attack ?G45.9 - Transient cerebral ischemic attack, unspecified (ICD-10) Osteoarthritis of cervical spine ?M47.812 - Spondylosis without myelopathy or radiculopathy, cervical region (ICD-10) Cervicogenic headache ?G44.86 - Cervicogenic headache (ICD-10) Abrasion ?T14.8XXA - Other injury of unspecified body region, initial encounter (ICD- 10) Cerebrovascular small vessel disease ?I67.9 - Cerebrovascular disease, unspecified (ICD-10) Acute Crohn's disease ?K50.90 - Crohn's disease, unspecified, without complications (ICD-10) Hypothyroidism ?E03.9 - Hypothyroidism, unspecified (ICD-10) Subcapital fracture of neck of right femur (07/2008) ?S72.011A - Unspecified intracapsular fracture of right femur, initial encounter for closed fracture (ICD-10) Low back pain ?M54.50 - Low back pain, unspecified (ICD-10) Smoker ?F17.200 - Nicotine dependence, unspecified, uncomplicated (ICD-10) Wheezing ?R06.2 - Wheezing (ICD-10) Surgical History History of appendectomy ?Z90.49 - Acquired absence of other specified parts of digestive tract (ICD- 10) History of hysterectomy ?Z90.710 - Acquired absence of both cervix and uterus (ICD-10) History of open reduction and internal fixation (ORIF) procedure (07/22/08) ?Z98.890 - Other specified postprocedural states (ICD-10) Social History Smoking Status: Current every day smoker What tobacco products do you use: cigarettes Do you use any of these nicotine containing products: None Second hand tobacco smoke exposure: Yes How often do you have a drink containing alcohol: never How often do you have six or more drinks on one occasion: Never AUDIT-C Alcohol total score: 0 Non-prescribed substance use: denies use Meds Home Medications and Allergies Home Medications ?Medication ?Instructions ?Recorded ?Confirmed ?Type aspirin 81 mg tablet,delayed mg 06/27/22 01/03/24 History release lisinopril 10 mg tablet mg 06/27/22 01/03/24 History methocarbamol 500 mg tablet mg 06/27/22 01/03/24 History Allergies Allergy/AdvReac Type Severity Reaction Status Date / Time infliximab [From Remicade] Allergy Severe Anaphylaxis Verified 01/03/24 13:44 codeine Allergy Intermediate GI upset Verified 01/03/24 13:44 amoxicillin [From Augmentin] Allergy Rash Verified 01/03/24 13:44 clavulanic acid Allergy Rash Verified 01/03/24 13:44 [From Augmentin] pollen extracts AdvReac Intermediate itching Verified 01/03/24 13:44 iohexol AdvReac Mild Verified 01/03/24 13:44 Exam Narrative Exam Narrative: Physical Exam GENERAL: ?vital signs reviewed , severe distress due to pain HEENT: pupils are equal round and reactive to light, extraocular movements are grossly within normal limits and oral mucosa is moist. NECK: not examined HEART: Regular rate and rhythm without any rubs, murmurs, or gallops. LUNGS: no respiratory distress ABDOMEN: Observation from nurse assisted exam, abdomen appears soft, nontender, and nondistended with Positive bowel sounds noted. EXTREMITIES: severe pain with minimal movement. SKIN:? Observed warm and dry with color normal Const Vital Signs, click to edit/add: Vital Signs - 24 hr 01/07/24 19:58 01/07/24 20:15 01/07/24 20:20 Temperature 97.7 F Pulse Rate Pulse Rate [Pulse Oximeter] 88 78 Respiratory Rate 16 Blood Pressure Blood Pressure [Right Arm] Blood Pressure [Right Upper Arm] 146/88 H Pulse Oximetry 97 97 96 Oxygen Delivery Method Room Air Room Air Oxygen Flow Rate 01/07/24 21:00 01/07/24 21:30 01/07/24 22:02 Temperature Pulse Rate 74 Pulse Rate [Pulse Oximeter] 78 78 Respiratory Rate 16 18 Blood Pressure 123/75 Blood Pressure [Right Arm] Blood Pressure [Right Upper Arm] 133/77 Pulse Oximetry 96 90 97 Oxygen Delivery Method Room Air Room Air Nasal Cannula Oxygen Flow Rate 2 01/07/24 22:32 01/08/24 00:56 Temperature 99.0 F Pulse Rate 74 Pulse Rate [Pulse Oximeter] 70 Respiratory Rate 14 20 Blood Pressure 141/80 H Blood Pressure [Right Arm] 122/66 Blood Pressure [Right Upper Arm] Pulse Oximetry 96 96 Oxygen Delivery Method Nasal Cannula Nasal Cannula Oxygen Flow Rate 2 Documenting provider has reviewed patient's vital signs: yes General appearance: in distress severe (pain) Nutritional appearance: not overweight HENMT Common normals: normocephalic Head and scalp: normocephalic Hospitalist - H&P: Result Labs Labs: Short CBC 01/07/24 Range/Units 20:19 WBC 16.35 H (4.50-11.00) K/uL Hgb 13.3 (12.0-16.0) gm/dL Hct 40.7 (33.0-51.0) % Plt Count 191 (140-440) K/uL BMP 01/07/24 20:19 Sodium 140 Potassium 4.3 Chloride 109 Carbon Dioxide 26 BUN 13 Creatinine 0.6 Glucose 100 Calcium 9.5 Assessment and Plan Assessment and plan (1) Pelvic fracture: Status: Acute (2) Intractable pain: Status: Acute (3) Smoker: Status: Acute (4) Low back pain: Status: Acute Plan Overall this patient is experiencing intractable pain secondary to pelvic fracture. Orthopedic surgery did review this case and felt that this is likely a nonoperative case. However the patient is having severe pain and unable to tolerate any ambulation whatsoever. She was administered fentanyl with limited benefit. I have started her on scheduled Tylenol, scheduled gabapentin, scheduled Celebrex and as needed oxycodone and Dilaudid as provided. Will have physical therapy and Occupational Therapy see the patient. Given this patient's fracture and history of smoking, upon discharge she should be seen by bone health team or at least get a DEXA scan to assess her risk for osteoporosis. Patient has known history of smoking. Will try to provide some nicotine replacements. Telehealth: Statement Statement Telehealth Visit: Today's History and Physical is provided via interactive telehealth by Armani Altamirano MD.? Patient is located at [facility].? Provider is located at [facility].? Nursing staff assisted with the patient's exam. The visit being done today meets criteria for a telehealth visit and the patient or patient?s parent/guardian is aware the visit is a telehealth visit. Camera Start Time: 01:30 Camera End Time: 02:00
[2024-01-08] MEDS: HYDROmorphone 0.5 mg/0.5 ml inj IVP (02:00)
[2024-01-08] MEDS: OXYCODONE 5 MG TABLET PO ×6 (04:12→18:43)
[2024-01-08] MEDS: ONDANSETRON 2 MG/ML inj 4 MG IVP (07:31)
--- NOTE | 2024-01-08 07:55 | PC.NURSE ---
Patient arrived from [facility] at 0042. Slide transferred with blow-up mat from ER bed to Med/Surg bed. Was drowsy upon arrival,?during new admission assessment and interview. Has been non-weight bearing. Indwelling urinary catheter placed at 0230 with 350mL output after insertion. Patient was premedicated with Dilaudid IVP prior to procedure. Patient did report some discomfort with insertion. Reports pain in pelvis, right hip and back. Reports pain is worse in right hip. Rates right hip pain 8-10/10. Ice pack applied to right hip. Given PRN Oxycodone at 0412 for pain rated 10/10 with movement. No complaints since that time. Son Haris called for update this morning. Haris not listed as authorized to receive health information. Airline Reservationist had patient call Haris on her cell?phone and she updated him. ?
--- NOTE | 2024-01-08 07:59 | PC.NURSE ---
Per admission questions patient reported within the last 12 months she has had problems having enough food during the month. However she reports she has not had a problem recently as she has been getting aide.
[2024-01-08 08:17] LABS: Basophils Absolute Auto 0.04 K/uL (0.00-0.30); Basophils Percent Auto 0.4 % (0.0-3.0); Eosinophils Percent Auto 0.9 % (0.0-7.0); Hematocrit 37.1 % (33.0-51.0); Immature Granulocytes Abs Auto 0.02 K/uL (0.00-0.30); Immature Granulocytes Pct Auto 0.2 %; Lymphocytes Percent Auto 9.1 % (20-44); Mean Corpuscular HGB Conc 32 gm/dL (32-36); Mean Corpuscular Hemoglobin 30 pg (26-34); Mean Corpuscular Volume 92 fL (80-100); Monocytes Percent Auto 8.9 % (0.0-11.0); Neutrophils Percent Auto 80.5 % (42.0-72.0); Platelet Count* 166 K/uL (140-440); RDW Coefficient of Variation % 12.6 % (11.5-15.5); Red Blood Count 4.04 m/uL (4.00-5.20); White Blood Count* 10.73 K/uL (4.50-11.00)
[2024-01-08 08:20] LABS: Appearance Urine Clear (Clear); Bilirubin Urine Negative (Negative); Blood Urine 1+ (Negative); Color Urine Yellow (Yellow); Glucose Urine Negative (Negative); Ketones Urine Negative (Negative); Leukocyte Esterase Urine Negative (Negative); Nitrite Urine Negative (Negative); Protein Urine 1+ (Negative); Specific Gravity Urine 1.025 (1.000-1.030); Urobilinogen Urine 0.2 (0.2-1.0)
[2024-01-08 08:24] LABS: Slide Review Reflex No
--- NOTE | 2024-01-08 08:27 | CRLHL7_ITS ---
For Patients: As a result of the Cures Act, medical imaging exams and procedure reports are released immediately into your electronic medical record. You may view this report before your referring provider. If you have questions, please contact your health care provider. INDICATION: Hypoxia TECHNIQUE: Single-view chest. COMPARISON: No comparison FINDINGS: Normal cardiac mediastinal silhouette. Slight indistinctness of the interstitial markings predominantly upper lobe could be infectious/inflammatory. No effusion no pneumothorax. No airspace consolidation is seen. Dictated by Matilda Lamas MD @ 01/08/2024 10:16:25 AM (Electronically Signed)
[2024-01-08 08:31] LABS: Amorphous Sediment Urine Few; Bacteria Urine Few; Mucus Urine Few; RBC Urine 0-2 (0-2); Squamous Epithelial Cell Urine Few (None-Few)
[2024-01-08] MEDS: GABAPENTIN 300 MG CAPSULE PO (08:46)
[2024-01-08] MEDS: ACETAMINOPHEN 500 MG TABLET 1000 MG PO ×3 (08:46→20:32)
[2024-01-08] MEDS: CELECOXIB 200 MG CAPSULE PO ×2 (08:46→20:31)
[2024-01-08 10:21] LABS: Amphetamine Screen Urine Negative (Negative); Barbiturate Screen Urine Negative (Negative); Benzodiazepines Screen Urine Negative (Negative); Cannabinoid Screen Urine POSITIVE (Negative); Cocaine Screen Urine Negative (Negative); Methadone Screen Urine Negative (Negative); Methamphetamines Screen Urine Negative (Negative); Opiate Screen Urine POSITIVE (Negative); Phencyclidine Screen Urine Negative (Negative); Tricyclic Antidepressant Urine Negative (Negative)
[2024-01-08 10:22] LABS: Oxycodone Screen Urine POSITIVE (Negative)
--- NOTE | 2024-01-08 11:27 | P.IMPN_ITS ---
Progress Note: A&P Assessment and plan (1) Pelvic fracture: Problem details: - Acute nondisplaced fracture involving the anterior cortex of the right sacral ala. Nondisplaced fracture of the right inferior pubic ramus, likely acute. No hip fracture identified. Incidental tubular defects in the right femoral neck from previous surgical hardware - nonoperative per Orthopedic Surgery - pain management, therapies, may require SNF vs home with increased assistance upon discharge Status: Acute (2) Acute hypoxic respiratory failure: Problem details: - hypoxia requiring low dose supplemental oxygen, in addition to fever + COPD and RUL interstitial markings on CXR - cover with Levaquin (01/07) given allergies, supplemental oxygen as needed Status: Acute (3) Intractable pain: Problem details: - improved pain management on 01/07 Status: Acute (4) Smoker: Problem details: - nicotine replacement as needed Status: Acute Plan - per above - Lovenox for prophylaxis Subjective Date Seen: 01/08/24 Interval history: Allison was admitted to the hospital after mechanical fall at work. She had severe hip pain after the injury and imaging revealed an acute nondisplaced fracture involving the anterior cortex of the right sacral ala and a nondisplaced fracture of the right inferior pubic ramus. She was unable to bear weight and had poor pain control, admitted as a result. This morning, patient is fairly tired. She is also noted to have hypoxia requiring oxygen supplementation, and an elevated temperature of a 100.1? UA revealed no acute infection, culture pending. Chest x-ray reveals hyperinflation and increased interstitial markings in right upper lobe. Exam Narrative: Exam Narrative: GEN: Alert and oriented, appears tired but nontoxic HEENT: Normal external ears, miotic pupils CV: RRR, No concerning murmurs R: Rhonchi throughout, decreased air movement Ext: wwp, no concerning edema Neuro: No focal deficits while resting in bed Psych: Appropriate Const: Vital Signs, click to edit/add: Vital Signs - 24 hr 01/07/24 19:58 01/07/24 20:15 01/07/24 20:20 Temperature 97.7 F Pulse Rate Pulse Rate [Pulse Oximeter] 88 78 Respiratory Rate 16 Blood Pressure Blood Pressure [Ri ght Arm] Blood Pressure [Ri ght Upper Arm] 146/88 H Pulse Oximetry 97 97 96 Oxygen Delivery Me thod Room Air Room Air Oxygen Flow Rate 01/07/24 21:00 01/07/24 21:30 01/07/24 21:35 Temperature Pulse Rate Pulse Rate [Pulse Oximeter] 78 78 Respiratory Rate 16 Blood Pressure Blood Pressure [Ri ght Arm] Blood Pressure [Ri ght Upper Arm] 133/77 Pulse Oximetry 96 90 89 Oxygen Delivery Me thod Room Air Room Air Room Air Oxygen Flow Rate 01/07/24 22:02 01/07/24 22:32 01/07/24 22:33 Temperature Pulse Rate 74 74 73 Pulse Rate [Pulse Oximeter] Respiratory Rate 18 14 Blood Pressure 123/75 141/80 H Blood Pressure [Ri ght Arm] Blood Pressure [Ri ght Upper Arm] Pulse Oximetry 97 96 95 Oxygen Delivery Me thod Nasal Cannula Nasal Cannula Nasal Cannula Oxygen Flow Rate 2 2 2 01/07/24 23:02 01/07/24 23:32 01/08/24 00:02 Temperature Pulse Rate 76 82 70 Pulse Rate [Pulse Oximeter] Respiratory Rate 18 16 16 Blood Pressure 132/75 123/83 127/79 Blood Pressure [Ri ght Arm] Blood Pressure [Ri ght Upper Arm] Pulse Oximetry 93 98 98 Oxygen Delivery Me thod Nasal Cannula Nasal Cannula Nasal Cannula Oxygen Flow Rate 2 2 2 01/08/24 00:32 01/08/24 00:56 01/08/24 00:56 Temperature 99.0 F Pulse Rate 67 Pulse Rate [Pulse Oximeter] 70 Respiratory Rate 16 20 Blood Pressure 117/79 Blood Pressure [Ri ght Arm] 122/66 Blood Pressure [Ri ght Upper Arm] Pulse Oximetry 99 96 Oxygen Delivery Me thod Nasal Cannula Nasal Cannula Nasal Cannula Oxygen Flow Rate 2 2 01/08/24 01:20 01/08/24 07:00 01/08/24 07:00 Temperature 100.1 F H Pulse Rate Pulse Rate [Pulse Oximeter] 79 79 Respiratory Rate 22 22 Blood Pressure Blood Pressure [Ri ght Arm] 128/73 Blood Pressure [Ri ght Upper Arm] Pulse Oximetry 94 93 Oxygen Delivery Me thod Nasal Cannula Oxygen Flow Rate 1 Labs Labs: Laboratory Results - last 24 hr 01/07/24 01/07/24 01/08/24 20:19 21:28 08:05 WBC 16.35 H RBC 4.45 Hgb 13.3 Hct 40.7 MCV 92 MCH 30 MCHC 33 RDW Coeff of David 12.7 Plt Count 191 Neut % (Auto) 76.8 H Lymph % (Auto) 14.2 L [place] % (Auto) 7.2 Eos % (Auto) 1.0 Baso % (Auto) 0.3 Neut # (Auto) 12.60 H Lymph # (Auto) 2.30 [place] # (Auto) 1.20 H Eos # (Auto) 0.20 Baso # (Auto) 0.00 Abs Immat Gran (auto) 0.10 Imm/Tot Granulo (auto) 0.5 INR 0.95 Sodium 140 Potassium 4.3 Chloride 109 Carbon Dioxide 26 Anion Gap 5 L BUN 13 Creatinine 0.6 Estimated Creat Clear 48.03 Estimated GFR 101 Glucose 100 Calcium 9.5 Urine Color Yellow Urine Appearance Clear Urine pH 7.0 Ur Specific [place] 1.025 Urine Protein 1+ A Urine Glucose (UA) Negative Urine Ketones Negative Urine Blood 1+ A Urine Nitrite Negative Urine Bilirubin Negative Urine Urobilinogen 0.2 Ur Leukocyte Esterase Negative Urine RBC 0-2 Urine WBC 2-5 Ur Squamous Epith Cells Few Amorphous Sediment Few A Urine Bacteria Few A Urine Mucus Few A Urine Yeast Few A Urine Opiates Screen POSITIVE A Ur Oxycodone Screen POSITIVE A Urine Methadone Screen Negative Ur Barbiturates Screen Negative U Tricyclic Antidepress Negative Ur Phencyclidine Scrn Negative Ur Amphetamines Screen Negative U Methamphetamines Scrn Negative U Benzodiazepines Scrn Negative Urine Cocaine Screen Negative U Marijuana (THC) Screen POSITIVE A Ur Drug Screen Comment See Note Lab Acknowledgement 01/08/24 01/08/24 08:10 09:59 WBC 10.73 RBC 4.04 Hgb 12.0 Hct 37.1 MCV 92 MCH 30 MCHC 32 RDW Coeff of David 12.6 Plt Count 166 Neut % (Auto) 80.5 H Lymph % (Auto) 9.1 L [place] % (Auto) 8.9 Eos % (Auto) 0.9 Baso % (Auto) 0.4 Neut # (Auto) 8.60 H Lymph # (Auto) 1.00 [place] # (Auto) 1.00 H Eos # (Auto) 0.10 Baso # (Auto) 0.04 Abs Immat Gran (auto) 0.02 Imm/Tot Granulo (auto) 0.2 INR Sodium Potassium Chloride Carbon Dioxide Anion Gap BUN Creatinine Estimated Creat Clear Estimated GFR Glucose Calcium Urine Color Urine Appearance Urine pH Ur Specific [place] Urine Protein Urine Glucose (UA) Urine Ketones Urine Blood Urine Nitrite Urine Bilirubin Urine Urobilinogen Ur Leukocyte Esterase Urine RBC Urine WBC Ur Squamous Epith Cells Amorphous Sediment Urine Bacteria Urine Mucus Urine Yeast Urine Opiates Screen Ur Oxycodone Screen Urine Methadone Screen Ur Barbiturates Screen U Tricyclic Antidepress Ur Phencyclidine Scrn Ur Amphetamines Screen U Methamphetamines Scrn U Benzodiazepines Scrn Urine Cocaine Screen U Marijuana (THC) Screen Ur Drug Screen Comment Lab Acknowledgement Test Added
--- NOTE | 2024-01-08 12:21 | REH.OT ---
Order received for OT eval and treat. Patient in significant pain, with fever and very fatigued today. Will evaluate on 01/09/24
[2024-01-08] MEDS: levoFLOXacin 500 MG TABLET PO (12:53)
--- NOTE | 2024-01-08 14:00 | PC.NURSE ---
Patient could barely keep her eyes open when I was trying to take her lunch order. She fell back asleep twice and I had to wake her up so she could finish looking at her menu for lunch.
[2024-01-08] MEDS: SENNOSIDES/DOCUSATE TABLET 1 TAB PO (14:22)
[2024-01-08] MEDS: NICOTINE 7 MG PATCH 1 PATCH TRANSDERMA (17:32)
--- NOTE | 2024-01-08 18:24 | PC.NURSE ---
End of Shift([id number]): Patient pleasant and cooperative, alert and oriented even though she has been sleepy/drowsy. Patient vitally stable, lungs clear, BS WNL, IV SL and intact. Patient currently on RA sating in the low 90s. Patient at the beginning of shift reported no pain but it also took a little bit to wake her up. Patient did get up to the chair but only lasted for about 20min. Upon returning to bed from the chair patient reported pain 9/10, 5mg of oxy was given once, and active ice applied to pelvis. Patient has no appetite and is encouraged to drink fluids. Baez intact and draining, 100ml emptied. Nicotine patch applied to right shoulder.
[2024-01-08] MEDS: ENOXAPARIN 40 MG/0.4 ML INJ SUBCUT (20:33)
[2024-01-08] MEDS: SODIUM CHLORIDE 0.9 % (FLUSH) 10 ML SYRINGE 5 ML IVF (20:37)
[2024-01-09] MEDS: OXYCODONE 5 MG TABLET PO ×5 (01:48→22:47)
[2024-01-09 03:00] VITALS: BP 142/74; PULSE 74; RESP 16; TEMP 37; O2SAT 94
--- NOTE | 2024-01-09 06:35 | PC.NURSE ---
: pleasant and cooperative. T&R. Baez patent and draining. Rating pain in right hip 04/17, Prn 5mg Oxy given x 2, active ice to hip. pt verbalized feeling very tired and having trouble keeping her eyes open, video game script writer held HS dose gabapentin.
[2024-01-09 06:42] LABS: Basophils Absolute Auto 0.06 K/uL (0.00-0.30); Basophils Percent Auto 0.8 % (0.0-3.0); Eosinophils Absolute Auto 0.12 K/uL (0.00-0.50); Eosinophils Percent Auto 1.7 % (0.0-7.0); Hematocrit 37.7 % (33.0-51.0); Hemoglobin* 12.2 gm/dL (12.0-16.0); Immature Granulocytes Abs Auto 0.01 K/uL (0.00-0.30); Immature Granulocytes Pct Auto 0.1 %; Lymphocytes Percent Auto 17.2 % (20-44); Mean Corpuscular HGB Conc 32 gm/dL (32-36); Mean Corpuscular Hemoglobin 29 pg (26-34); Mean Corpuscular Volume 91 fL (80-100); Monocytes Percent Auto 8.9 % (0.0-11.0); Neutrophils Absolute Auto 5.15 K/uL (1.7-7.0); Neutrophils Percent Auto 71.3 % (42.0-72.0); Platelet Count* 150 K/uL (140-440); RDW Coefficient of Variation % 12.6 % (11.5-15.5); Red Blood Count 4.16 m/uL (4.00-5.20); White Blood Count* 7.22 K/uL (4.50-11.00)
[2024-01-09 06:47] LABS: Slide Review Reflex No
[2024-01-09 06:56] LABS: Albumin* 3.9 g/dL (3.3-5.0); Chloride* 107 mmol/L (96-114); Sodium* 137 mmol/L (135-149)
[2024-01-09 06:58] LABS: Anion Gap 4 mEq/L (7-15); Aspartate Amino Transferase* 24 U/L (12-35); Bilirubin Total* 0.8 mg/dL (0.1-1.5); Carbon Dioxide* 26 mmol/L (20-32); Creatinine* 0.6 mg/dL (0.5-1.5); Est. Creatinine Clearance* 53.59; Estimated Glomerular Filt Rate 101 ml/min; Total Protein* 7.1 g/dL (6.0-8.3)
[2024-01-09 06:59] LABS: Alanine Aminotransferase* 17 U/L (4-35); Alkaline Phosphatase* 102 U/L (40-150); Blood Urea Nitrogen* 10 mg/dL (7-30); Calcium* 8.7 mg/dL (8.4-10.6); Glucose* 86 mg/dL (60-115)
[2024-01-09 07:00] VITALS: BP 138/78; PULSE 83; RESP 14; TEMP 36.9; O2SAT 96
[2024-01-09 07:08] LABS: Lab Add On Test New Spec Needed
[2024-01-09] MEDS: CELECOXIB 200 MG CAPSULE PO ×2 (08:36→20:47)
[2024-01-09] MEDS: ACETAMINOPHEN 500 MG TABLET 1000 MG PO ×3 (08:36→20:47)
[2024-01-09] MEDS: SODIUM CHLORIDE 0.9 % (FLUSH) 10 ML SYRINGE 5 ML IVF ×2 (08:42→20:48)
[2024-01-09 11:00] VITALS: BP 158/97; PULSE 76; RESP 16; TEMP 37.2; O2SAT 96
--- NOTE | 2024-01-09 11:38 | PM.IMPN1 ---
Progress Note: A&P Assessment and plan (1) Pelvic fracture: Problem details: - Acute nondisplaced fracture involving the anterior cortex of the right sacral ala. Nondisplaced fracture of the right inferior pubic ramus, likely acute. No hip fracture identified. Incidental tubular defects in the right femoral neck from previous surgical hardware - nonoperative per Orthopedic Surgery - pain management, therapies, may require SNF vs home with increased assistance upon discharge Status: Acute (2) Acute hypoxic respiratory failure: Problem details: - hypoxia requiring low dose supplemental oxygen, in addition to fever + COPD and RUL interstitial markings on CXR - cover with Levaquin (01/07) given allergies, supplemental oxygen as needed Status: Acute (3) Intractable pain: Problem details: - improved pain management on 01/07 Status: Acute (4) Smoker: Problem details: - nicotine replacement as needed Status: Acute Plan - per above - continue to work with therapies - will likely be medically appropriate for d/c tomorrow (home with assistance or SNF) Subjective Date Seen: 01/09/24 Interval history: Allison was admitted to the hospital on 01/07 after a mechanical fall at work. It is unclear about how much of the incident she remembers. She had severe hip pain after the injury; imaging in the ED revealed an acute nondisplaced fracture involving the anterior cortex of the right sacral ala and a nondisplaced fracture of the right inferior pubic ramus. She was unable to bear weight in the ER and had poor pain control, admitted as a result. On hospital day 1 (01/08/24), she was noted to have hypoxia requiring oxygen supplementation, and an elevated temperature of 100.1? UA revealed no acute infection, culture currently NGTD. Chest x-ray on 01/07 revealed hyperinflation and increased interstitial markings in right upper lobe, Levaquin initiated at that time. She has been stable on RA since yesterday afternoon, no fever since yesterday morning, tolerating antibiotics. Allison continues to have a fair amount of pain with ambulation, working with therapies. Also had a recent R 4th finger fracture, which is limiting her ability to use a standard walker. Will likely require a SNF upon discharge. Exam Narrative: Exam Narrative: GEN: Alert and sitting in bed, nontoxic but is in pain HEENT: EOMIs bilaterally, no scleral icterus CV: RRR, No concerning murmurs R: LCTA bilaterally without concerning wheezing, mild apical rhonchi Skin: No concerning skin lesions or rashes on exposed skin Psych: Appropriate Const: Vital Signs, click to edit/add: Vital Signs - 24 hr 01/08/24 14:47 01/08/24 14:47 01/08/24 14:47 Temperature Pulse Rate [Pulse Oximeter] 62 Respiratory Rate 14 14 Blood Pressure [Le ft Arm] Blood Pressure [Ri ght Arm] Pulse Oximetry 94 94 Oxygen Delivery Me thod Nasal Cannula Oxygen Flow Rate 1 01/08/24 15:18 01/08/24 20:00 01/08/24 23:00 Temperature 98.5 F 98.7 F Pulse Rate [Pulse Oximeter] 62 74 Respiratory Rate 14 14 Blood Pressure [Le ft Arm] 110/64 120/62 Blood Pressure [Ri ght Arm] Pulse Oximetry 94 94 94 Oxygen Delivery Me thod Nasal Cannula Room Air Oxygen Flow Rate 1 01/08/24 23:00 01/08/24 23:00 01/08/24 23:00 Temperature 98.6 F Pulse Rate [Pulse Oximeter] 70 70 Respiratory Rate 14 16 16 Blood Pressure [Le ft Arm] Blood Pressure [Ri ght Arm] 144/81 H Pulse Oximetry 94 96 Oxygen Delivery Me thod Room Air Room Air Oxygen Flow Rate 1 01/09/24 03:00 01/09/24 07:00 01/09/24 07:00 Temperature 98.6 F 98.5 F Pulse Rate [Pulse Oximeter] 74 83 Respiratory Rate 16 14 Blood Pressure [Le ft Arm] 138/78 Blood Pressure [Ri ght Arm] 142/74 H Pulse Oximetry 94 96 96 Oxygen Delivery Me thod Room Air Room Air Oxygen Flow Rate 01/09/24 07:00 01/09/24 07:00 01/09/24 11:00 Temperature 98.9 F Pulse Rate [Pulse Oximeter] 83 76 Respiratory Rate 14 14 16 Blood Pressure [Le ft Arm] 158/97 H Blood Pressure [Ri ght Arm] Pulse Oximetry 96 96 Oxygen Delivery Me thod Room Air Room Air Oxygen Flow Rate Labs Labs: Laboratory Results - last 24 hr 01/09/24 01/09/24 06:11 07:06 WBC 7.22 RBC 4.16 Hgb 12.2 Hct 37.7 MCV 91 MCH 29 MCHC 32 RDW Coeff of David 12.6 Plt Count 150 Neut % (Auto) 71.3 Lymph % (Auto) 17.2 L [place] % (Auto) 8.9 Eos % (Auto) 1.7 Baso % (Auto) 0.8 Neut # (Auto) 5.15 Lymph # (Auto) 1.20 [place] # (Auto) 0.60 Eos # (Auto) 0.12 Baso # (Auto) 0.06 Abs Immat Gran (auto) 0.01 Imm/Tot Granulo (auto) 0.1 Sodium 137 Potassium 4.0 Chloride 107 Carbon Dioxide 26 Anion Gap 4 L BUN 10 Creatinine 0.6 Estimated Creat Clear 53.59 Estimated GFR 101 Glucose 86 Calcium 8.7 Total Bilirubin 0.8 AST 24 ALT 17 Alkaline Phosphatase 102 Total Protein 7.1 Albumin 3.9 TSH 3.520 Lab Acknowledgement New Spec Needed
[2024-01-09] MEDS: levoFLOXacin 500 MG TABLET PO (11:47)
[2024-01-09 15:00] VITALS: BP 129/77; PULSE 76; RESP 16; TEMP 37.1; O2SAT 96
[2024-01-09] MEDS: 0.9 % SODIUM CHLORIDE 500 ML 500 ML IV (15:07)
[2024-01-09] MEDS: ONDANSETRON 2 MG/ML inj 4 MG IVP (16:30)
--- NOTE | 2024-01-09 17:01 | PC.SOCIAL ---
Discharge planning- Met with pt and discuss discharge plans. Therapy recommends SNF for rehab. Pt does not have any health insurance. Pt reports that she had [facility], but it lapsed in August of this year. Discussed that pt should reach out to [facility] to get health insurance back in place. Pt reports that she has tried this and gets the run around. Pt reports that she spoke with Adrian at her place of employment earlier today and he was going to get the work comp claim started. Suggested that pt check in with her employer in the morning to see if the claim was started. Discussed private pay options for SNF and pt does not have the finances to private pay. Pt reports that she would like to go home to her apartment with assistance from her son. Informed pt that social work will follow up in the morning and further discuss discharge plans.
[2024-01-09] MEDS: NICOTINE 7 MG PATCH 1 PATCH TRANSDERMA (18:15)
--- NOTE | 2024-01-09 18:29 | PC.NURSE ---
End of shift: patient pleasant and cooperative, A&O. VSS, afebrile. SpO2 maintained above 90% on room air. Baez catheter D/C this morning with tip intact. Patient reports pain in her pelvis rating 7-10 out of 10 this shift, managed with PRN medication, see MAR. Patient used bedside commode this shift. Assist of 1 with walker and gait belt. Nicotine patch on her left shoulder.
[2024-01-09 19:00] VITALS: BP 137/79; PULSE 78; RESP 18; TEMP 36.9; O2SAT 94
[2024-01-09] MEDS: ENOXAPARIN 40 MG/0.4 ML INJ SUBCUT (20:47)
--- NOTE | 2024-01-09 22:39 | PC.NURSE ---
End of Shift: Patient pleasant and cooperative. Afebrile. Rating pain 7-8/10 and PRN Oxycodone given x1. Up to BSC with SBA. Tolerating regular diet with no nausea.
[2024-01-09] MEDS: SENNOSIDES/DOCUSATE TABLET 1 TAB PO (22:47)
[2024-01-09 23:00] VITALS: RESP 18; O2SAT 93
[2024-01-10 00:02] VITALS: BP 104/86; PULSE 63; RESP 18; TEMP 36.8; O2SAT 93
[2024-01-10 02:26] VITALS: BP 119/76; PULSE 63; RESP 20; TEMP 36.8; O2SAT 94
[2024-01-10] MEDS: OXYCODONE 5 MG TABLET PO ×2 (02:35→07:49)
--- NOTE | 2024-01-10 06:26 | PC.NURSE ---
[id number]: Patient cooperative with cares. Nicotine patch to L. shoulder. PRN oxycodone and ice to R. hip for pain management. Pivot to BSC. O2 sats >90 RA.
[2024-01-10 06:35] LABS: Basophils Absolute Auto 0.05 K/uL (0.00-0.30); Eosinophils Absolute Auto 0.13 K/uL (0.00-0.50); Eosinophils Percent Auto 2.6 % (0.0-7.0); Hematocrit 35.5 % (33.0-51.0); Hemoglobin* 11.7 gm/dL (12.0-16.0); Immature Granulocytes Abs Auto 0.01 K/uL (0.00-0.30); Immature Granulocytes Pct Auto 0.2 %; Lymphocytes Absolute Auto 1.46 K/uL (0.90-2.90); Lymphocytes Percent Auto 28.7 % (20-44); Mean Corpuscular HGB Conc 33 gm/dL (32-36); Mean Corpuscular Hemoglobin 30 pg (26-34); Mean Corpuscular Volume 90 fL (80-100); Monocytes Percent Auto 13.6 % (0.0-11.0); Neutrophils Absolute Auto 2.75 K/uL (1.7-7.0); Neutrophils Percent Auto 53.9 % (42.0-72.0); Platelet Count* 152 K/uL (140-440); RDW Coefficient of Variation % 12.6 % (11.5-15.5); Red Blood Count 3.94 m/uL (4.00-5.20); Slide Review Reflex No; White Blood Count* 5.09 K/uL (4.50-11.00)
[2024-01-10 06:51] LABS: Chloride* 109 mmol/L (96-114); Potassium* 3.8 mmol/L (3.6-5.1); Sodium* 138 mmol/L (135-149)
[2024-01-10 06:54] LABS: Anion Gap 4 mEq/L (7-15); Carbon Dioxide* 25 mmol/L (20-32); Creatinine* 0.6 mg/dL (0.5-1.5); Estimated Glomerular Filt Rate 101 ml/min
[2024-01-10 06:55] LABS: Blood Urea Nitrogen* 11 mg/dL (7-30); Calcium* 8.6 mg/dL (8.4-10.6); Glucose* 85 mg/dL (60-115)
[2024-01-10 07:00] VITALS: RESP 16; O2SAT 94
[2024-01-10 07:42] VITALS: BP 138/75; PULSE 71; RESP 18; TEMP 37.1; O2SAT 96
[2024-01-10] MEDS: ACETAMINOPHEN 500 MG TABLET 1000 MG PO (09:11)
[2024-01-10] MEDS: CELECOXIB 200 MG CAPSULE PO (09:12)
[2024-01-10] MEDS: SODIUM CHLORIDE 0.9 % (FLUSH) 10 ML SYRINGE 5 ML IVF (09:13)
--- NOTE | 2024-01-10 12:18 | PC.SOCIAL ---
Discharge planning- Met with pt to discuss discharge plans. Pt is requesting to go home with her son. Pt is declining going to SNF for rehab. Discussed work comp claim and asked if pt has verified with her employer that the claim has been started. Pt called [employer] (Employer) and verified that the work comp claim was submitted and is processing. No further information is available. Discussed pt's medical assistance case and asked if pt would like this worker to complete the medical assistance application with pt today. Pt does not want to complete application due to not having access to her financial information. Informed pt that this worker could assist and submit the initial information and pt could submit the financial information when she gets it and pt declined. Provided update to MD. Per MD, pt will discharge to home today. MD has been in contact with pt's PCP to see if the PCP can assist with home care orders next week when pt has insurance in place. Met with pt and discussed transportation for discharge. Pt's son does not have a car and pt does not have any friends or other family that can provide transportation. Discussed non-emergency ambulance and the fees associated with transport. Pt does not want to transport via non-emergency ambulance because pt does not want to pay the fees. Pt called her son and discussed transportation. Per pt, the plan is for pt's son to ride the [employer] to the hospital and then pt's son will ride with pt on the transit back home. Provided update to MD and charge nurse. Social Work will continue to follow up as needed.
[2024-01-10] MEDS: levoFLOXacin 500 MG TABLET PO (12:19)
--- NOTE | 2024-01-10 13:22 | PM.DS1 ---
DS: Providers Provider Date Seen: 01/10/24 Date of admission: 01/08/24 16:28 Primary care physician: Andie Holliday MD Admitting Clinician: Armani Altamirano MD Consults: PT, OT, SW Attending Physician on discharge: Lee Ann Patel MD Date of Discharge: 01/10/24 DS: Diagnosis Discharge Diagnosis (1) Pelvic fracture: Status: Acute Problem details: - Acute nondisplaced fracture involving the anterior cortex of the right sacral ala. Nondisplaced fracture of the right inferior pubic ramus, likely acute. No hip fracture identified. Incidental tubular defects in the right femoral neck from previous surgical hardware - nonoperative per Orthopedic Surgery - pain management, therapies (2) Acute hypoxic respiratory failure: Status: Acute Problem details: - hypoxia requiring low dose supplemental oxygen, in addition to fever + COPD and RUL interstitial markings on CXR - treated with 3 days of Levaquin, remained stable on RA without any recurrent fevers (3) Intractable pain: Status: Acute Problem details: - improved pain management on 01/07 (4) Smoker: Status: Acute Problem details: - nicotine replacement as needed DS: Summary Hospital Course Hospital Course: Allison was admitted to the hospital on 01/07 after a mechanical fall at work. She had severe hip pain after the injury; imaging in the ED revealed an acute nondisplaced fracture involving the anterior cortex of the right sacral ala and a nondisplaced fracture of the right inferior pubic ramus. Unable to bear weight in the ER with poor pain control, admitted as a result. On hospital day 1 (01/08/24), she was noted to have hypoxia requiring oxygen supplementation, and an elevated temperature of 100.1? UA revealed no acute infection, culture NGTD. Chest x-ray on 01/07 revealed hyperinflation and increased interstitial markings in right upper lobe, Levaquin initiated during stay. She has been stable on RA since 01/08/24, afebrile >24 hours, tolerating antibiotics. Patient worked with therapies during stay, SNF recommended. She declined SNF and requested discharge home with son on 01/10/2024. Status at Discharge Functional status at discharge: uses cane/walker Overall status at discharge: patient is progressing back to baseline Time Spent with Patient Time attestation: Total time spent providing and/or coordinating discharge services: Time spent: Greater than 30 minutes Specific discharge activities: Medication reconciliation, patient Education Exam Narrative: Exam Narrative: GEN: Alert and oriented, nontoxic, sitting comfortably in bedside chair HEENT: EOMIs bilaterally, no scleral icterus CV: RRR, No concerning murmurs R: LCTA bilaterally without concerning wheezing, air movement adequate Ext: wwp, no concerning edema Skin: No concerning skin lesions or rashes on exposed skin Psych: Appropriate Const: Vital Signs, click to edit/add: Vital Signs - 24 hr 01/09/24 15:00 01/09/24 15:00 01/09/24 15:00 Temperature 98.7 F Pulse Rate [Pulse Oximeter] 76 76 Respiratory Rate 16 16 Blood Pressure [Le ft Arm] 129/77 Pulse Oximetry 96 96 Oxygen Delivery Me thod Room Air 01/09/24 15:00 01/09/24 19:00 01/09/24 23:00 Temperature 98.4 F Pulse Rate [Pulse Oximeter] 78 Respiratory Rate 16 18 Blood Pressure [Le ft Arm] 137/79 Pulse Oximetry 96 94 93 Oxygen Delivery Me thod Room Air Room Air 01/09/24 23:00 01/10/24 00:02 01/10/24 02:26 Temperature 98.3 F 98.3 F Pulse Rate [Pulse Oximeter] 63 63 Respiratory Rate 18 18 20 Blood Pressure [Le ft Arm] 104/86 119/76 Pulse Oximetry 93 93 94 Oxygen Delivery Me thod Room Air Room Air Room Air 01/10/24 07:00 01/10/24 07:00 01/10/24 07:42 Temperature 98.8 F Pulse Rate [Pulse Oximeter] 71 Respiratory Rate 16 18 Blood Pressure [Le ft Arm] 138/75 Pulse Oximetry 94 94 96 Oxygen Delivery Me thod Room Air Room Air DS: Data Data Completed and Pending Labs on day of discharge: Labs from last 24 hours 01/10/24 06:17 WBC 5.09 RBC 3.94 L Hgb 11.7 L Hct 35.5 MCV 90 MCH 30 MCHC 33 RDW Coeff of David 12.6 Plt Count 152 Neut % (Auto) 53.9 Lymph % (Auto) 28.7 Rhea % (Auto) 13.6 H Eos % (Auto) 2.6 Baso % (Auto) 1.0 Neut # (Auto) 2.75 Lymph # (Auto) 1.46 Rhea # (Auto) 0.70 Eos # (Auto) 0.13 Baso # (Auto) 0.05 Abs Immat Gran (auto) 0.01 Imm/Tot Granulo (auto) 0.2 Sodium 138 Potassium 3.8 Chloride 109 Carbon Dioxide 25 Anion Gap 4 L BUN 11 Creatinine 0.6 Estimated Creat Clear 51.50 Estimated GFR 101 Glucose 85 Calcium 8.6 Discharge Plan Discharge Disposition: Home, Self-Care Date of Admission: 01/08/24 16:28 Attending Provider on Discharge: Lee Ann Patel Primary Care Provider: Andie Holliday Condition: Improved Anticipated Discharge Date/Time: 01/10/24 10:47 Discharge Medications: New oxycodone 5 mg Tablet 5 mg PO Q4H PRN (Reason: Moderate Pain) Qty: 30 0RF Rx Instructions: Workmans comp celecoxib [Celebrex] 200 mg capsule 200 mg PO DAILY Qty: 30 0RF Continued cyclobenzaprine 5 mg tablet 5 - 10 mg PO TID PRN (Reason: muscle spasm) Qty: 20 0RF aspirin 81 mg tablet,delayed release (DR/EC) 81 mg PO DAILY lisinopril 10 mg tablet 10 mg PO DAILY Discontinued hydrocodone-acetaminophen 5-325 mg tablet 1 - 2 tab PO Q4-6H PRN (Reason: pain) Qty: 8 0RF methocarbamol 500 mg tablet 500 mg PO Q8H PRN Discharge Orders: Discharge Order (Routine); Ordered 01/10/24 Ordered By: Lee Ann Patel Patient Education: Oxycodone, Rapid Release (By mouth), Celecoxib (By mouth), Pelvic Fracture (DC) Additional Instructions: Pain management: 1. Schedule Tylenol 1000mg three times/day for baseline pain management 2. Good idea to add in daily Celebrex (200mg once/day) - this was sent to [facility] and can help with pain (and is non narcotic). 3. For severe pain, use Oxycodone (1 tab every 4-6 hours). This can make you tired and constipated, so try to minimize use. Do your exercise from PT and OT 3 times/day. Your pain should continue to get a little better each day. Activity Level: Activity as Tolerated Discharge Diet: Diabetic Follow Up Appointments: Andie Holliday MD [Primary Care Provider] - 01/17/24 12:45 pm ([facility] for follow-up. ) Forms: [employer] Info Instructions
--- NOTE | 2024-01-10 14:25 | PC.NURSE ---
shift note: dc'd IV intact. Reviewed dc instructions and copies sent with pt at dc. Belongings reviewed and sent with pt at dc.
== END 2024-01-10 12:45 | disposition home or self-care (01) | DRG 347 ==
LOC: ED 21:18 → MEDSURG 01-08 00:38
PROVIDERS: Admitting Provider Student in an Organized Health Care Education/Training Program; Emergency Provider Internal Medicine; PCP Family Medicine; Visit Provider Family Medicine
DX: S32.110A Nondisplaced Zone I fracture of sacrum, initial encounter for closed fracture (principal); J18.9 Pneumonia, unspecified organism; J96.01 Acute respiratory failure with hypoxia; S32.591A Other specified fracture of right pubis, initial encounter for closed fracture; J44.0 Chronic obstructive pulmonary disease with (acute) lower respiratory infection; F17.200 Nicotine dependence, unspecified, uncomplicated; M54.50 Low back pain, unspecified; G89.11 Acute pain due to trauma; F17.210 Nicotine dependence, cigarettes, uncomplicated; W01.198A Fall on same level from slipping, tripping and stumbling with subsequent striking against other object, initial encounter; Y99.0 Civilian activity done for income or pay; Z86.73 Personal history of transient ischemic attack (TIA), and cerebral infarction without residual deficits; E03.9 Hypothyroidism, unspecified
CPT/HCPCS: 36415; 51701; 51798; 70450; 71045; 72125; 72192; 80048; 80053; 80306; 81001; 81003; 82803; 84443; 85025; 85610; 87086; 94761; 97116; 97161; 97165; 97530; 97535; 99283; A9270; G0378; J1170; J1650; J2405; J3010; J7030; S4990

== ENCOUNTER 2024-01-12 19:26 | Observation (INO) | payer OTHER, MEDICAID, SELFPAY ==
[2024-01-12 19:40] VITALS: BP 151/78; PULSE 75; RESP 18; TEMP 36.7; O2SAT 99; BMI 20.5
[2024-01-12] MEDS: OXYCODONE 5 MG TABLET PO ×2 (19:56→22:07)
--- NOTE | 2024-01-12 19:57 | ED_ITS ---
HPI - General Adult General Date Seen: 01/12/24 Chief complaint: Unspecified Complaint, Adult Stated complaint: pelvis pain Time Seen by Provider: 01/12/24 19:34 Source: patient, RN notes reviewed and old records reviewed Mode of arrival: ambulatory Limitations: no limitations History of Present Illness HPI narrative: Patient is a 63-year-old woman who had a mechanical fall on January 06, admitted to the hospital and discharged on the . She had pelvic fractures, no hip fracture based on CT scan. Rehab stay was recommended but she says when she was in the hospital she just was not thinking quite clearly, she declined that and thought she could manage at home. She says she does not have anyone who can help her and she just can not manage as she thought she would be able to. She did have some trouble filling her oxycodone and so she was of without that toe last night, took 1 last evening and said she has not taken any today because she wanted to have a clear head. Pain has been difficult to manage, she has found herself really struggling to get to the bathroom etcetera. She feels she needs a rehab stay after all. She denies any additional falls or illness. Related Data Home Medications ?Medication ?Instructions ?Recorded ?Confirmed aspirin 81 mg tablet,delayed 81 mg PO DAILY 06/27/22 01/08/24 release lisinopril 10 mg tablet 10 mg PO DAILY 06/27/22 01/08/24 Previous Rx's ?Medication ?Instructions ?Recorded cyclobenzaprine 5 mg tablet 5 - 10 mg (1 - 2 x 5 mg) PO TID 02/21/23 PRN muscle spasm #20 tabs celecoxib 200 mg capsule (Celebrex) 200 mg PO DAILY #30 caps 01/10/24 oxycodone 5 mg tablet 5 mg PO Q4H PRN Moderate Pain #30 01/10/24 tabs celecoxib 200 mg capsule (Celebrex) 200 mg PO DAILY #30 caps 01/11/24 oxycodone 5 mg tablet 5 mg PO Q6H PRN pain #30 tabs 01/11/24 Allergies Allergy/AdvReac Type Severity Reaction Status Date / Time infliximab [From Remicade] Allergy Severe Anaphylaxis Verified 01/03/24 13:44 codeine Allergy Intermediate GI upset Verified 01/03/24 13:44 amoxicillin [From Augmentin] Allergy Rash Verified 01/03/24 13:44 clavulanic acid Allergy Rash Verified 01/03/24 13:44 [From Augmentin] pollen extracts AdvReac Intermediate itching Verified 01/03/24 13:44 iohexol AdvReac Mild Verified 01/03/24 13:44 Review of Systems Status of ROS: Reports: 10 or more systems reviewed and unremarkable except as noted in History and below [facility] Medical History Acute hypoxic respiratory failure ?J96.01 - Acute respiratory failure with hypoxia (ICD-10) CVA (cerebral vascular accident) ?I63.9 - Cerebral infarction, unspecified (ICD-10) Transient ischemic attack ?G45.9 - Transient cerebral ischemic attack, unspecified (ICD-10) Osteoarthritis of cervical spine ?M47.812 - Spondylosis without myelopathy or radiculopathy, cervical region (ICD-10) Cervicogenic headache ?G44.86 - Cervicogenic headache (ICD-10) Abrasion ?T14.8XXA - Other injury of unspecified body region, initial encounter (ICD- 10) Cerebrovascular small vessel disease ?I67.9 - Cerebrovascular disease, unspecified (ICD-10) Acute Crohn's disease ?K50.90 - Crohn's disease, unspecified, without complications (ICD-10) Hypothyroidism ?E03.9 - Hypothyroidism, unspecified (ICD-10) Subcapital fracture of neck of right femur (07/2008) ?S72.011A - Unspecified intracapsular fracture of right femur, initial encounter for closed fracture (ICD-10) Low back pain ?M54.50 - Low back pain, unspecified (ICD-10) Smoker ?F17.200 - Nicotine dependence, unspecified, uncomplicated (ICD-10) Wheezing ?R06.2 - Wheezing (ICD-10) Surgical History History of appendectomy ?Z90.49 - Acquired absence of other specified parts of digestive tract (ICD- 10) History of hysterectomy ?Z90.710 - Acquired absence of both cervix and uterus (ICD-10) History of open reduction and internal fixation (ORIF) procedure (07/22/08) ?Z98.890 - Other specified postprocedural states (ICD-10) Social History What is your current living situation?: I presently have a place to live Problems where you live: no known problems Problems where you live details: n/a In the past 12 months, utilities in danger of being shut off: no In past 12 months, lack of transportation kept you from medical appts, meetings, work, or getting things needed for daily living: yes In the past 12 mos, have been you worried that your food would run out before you had money to buy more?: sometimes true In the past 12 mos, the food you bought just didn't last and you didn't have money to buy more?: sometimes true Smoking Status: Current every day smoker What tobacco products do you use: cigarettes Do you use any of these nicotine containing products: None Second hand tobacco smoke exposure: No How often do you have a drink containing alcohol: never How often do you have six or more drinks on one occasion: Never AUDIT-C Alcohol total score: 0 Non-prescribed substance use: marijuana (any form) Non-prescribed substance use details: Just a little Caffeine: Yes (coffee and some soda) How often does anyone, including family, friends and others, physically hurt you : never How often does anyone, including family, friends and others, insult or talk down to you: never How often does anyone, including family, friends and others, threaten you with harm: never How often does anyone, including family, friends and others, scream or curse at you: never Exam Narrative: Exam Narrative: Vital signs as noted above. In general, an alert, nontoxic woman. She is lying on her left side. Head: Normocephalic, atraumatic. Eyes: Pupils are equal reactive. Extraocular movements are full. Conjunctivae are normal. ENT: Mucous membranes are moist. Throat is normal. Neck: Supple without lymphadenopathy. Heart: Regular rate and rhythm. No murmur or rub. Lungs: Clear bilaterally. No increased work of breathing, crackles or wheezes. Abdomen: Soft and nontender. No organomegaly. Extremities: Well perfused. No edema. No calf tenderness. Pulses intact. Did not range the right hip. Neurologic: Patient is alert and oriented to person and place. Speech is fluent. Face is symmetric. Moves all extremities equally. Affect: Normal. Skin: Warm and dry. Well perfused. Const: Vital Signs, click to edit/add: Vital Signs - 24 hr 01/12/24 19:40 Temperature 98.1 F Pulse Rate [Right Pulse Oximeter] 75 Respiratory Rate 18 Blood Pressure [Ri ght Upper Arm] 151/78 H Pulse Oximetry 99 Oxygen Delivery Me thod Room Air Documenting provider has reviewed patient's vital signs: yes Course Course ED Course: Records were reviewed. I do not see a clear indication for reimaging. I did talk with the hospitalist who is agreed to put her back in the hospital and work on placement. I have ordered oxycodone 5 mg orally. Vital Signs Vital signs: Initial Vital Signs Temperature 98.1 F 01/12/24 19:40 Temperature Source Temporal Artery Scan 01/12/24 19:40 Pulse Rate 75 01/12/24 19:40 Respiratory Rate 18 01/12/24 19:40 Blood Pressure 151/78 H 01/12/24 19:40 Blood Pressure Mean 102 01/12/24 19:40 Blood Pressure Position Sitting 01/12/24 19:40 Pulse Oximetry 99 01/12/24 19:40 Oxygen Delivery Method Room Air 01/12/24 19:40 Vital Signs Temperature 98.1 F 01/12/24 19:40 Pulse Rate 75 01/12/24 19:40 Respiratory Rate 18 01/12/24 19:40 Blood Pressure 151/78 H 01/12/24 19:40 Pulse Oximetry 99 01/12/24 19:40 Oxygen Delivery Method Room Air 01/12/24 19:40 Temperature 98.1 F 01/12/24 19:40 Pulse Rate 75 01/12/24 19:40 Respiratory Rate 18 01/12/24 19:40 Blood Pressure 151/78 H 01/12/24 19:40 Pulse Oximetry 99 01/12/24 19:40 Oxygen Delivery Method Room Air 01/12/24 19:40 Medications Administered Medications: Discontinued Medications Generic Name Dose Route Start Last Admin Trade Name Freq PRN Reason Stop Dose Admin Oxycodone HCl 5 mg 01/12/24 19:50 01/12/24 19:56 Oxycodone 5 Mg Tablet PO 01/12/24 19:51 5 mg ONCE ONE Administration
--- OUTSIDE RECORDS SUMMARY | 2024-01-12 20:16 | XMS_ITS | Clinical Summary ---
Author Organization [employer] [facility] Address [place], [place] [address] Care Team Providers Care Forming Acid Dumper Name Role Phone Andie Holliday MD Primary Care Provider [phone] Allergies Active Allergy Reactions Criticality Noted Date [...] Encounters Date Type Department Care Team Description 01/12/2024 Telephone [facility] [address] [place] [address] Andie Holliday MD Follow Up 01/11/2024 Telephone [facility] [address] [place] [address] Andie Holliday MD Questions (ADMITTED TO [facility] FOR REHAB) 01/08/2024 Orders Only [facility] Scanner 1 scan: (1-Ord) [facility], CHEST, 01/08/2024 01/07/2024 Orders Only [facility] Scanner 1 scan: (1-Ord) [facility], CT CERVICAL SPINE, 01/07/2024 12/22/2023 3:15 PM CDT Ancillary Procedure [facility] [address] [place] [address] 12/22/2023 3:00 PM CDT Ancillary Procedure [facility] [address] [place] [address] 12/22/2023 2:25 PM CDT Office Visit [facility] [address] [place] [address] Andie Holliday MD Hip Pain/problem (Right, 1 month) 12/22/2023 Travel from Last 3 Months Immunizations Name Administration Dates Next Due COVID-19 vaccine ([employer] 30mcg/0.3mL) 12YO+ SAÚ[place]-[employer]CROSE MELVA MORRISON 02/12/2022,02/11/2022 COVID-19 vaccine ([employer] 30mcg/0.3mL) PFMELVA 12/23/2020,12/23/2020,12/02/2020 Influenza Virus, Unspecified 05/20/2017 Influenza, IIV3 [...] 06/01/2022 2:14 PM CDT Plan of Treatment Upcoming Encounters Date Type Department Care Team (Late st Contact Info) Description 01/17/2024 12:45 PM CDT Office Visit [facility] [address] [facility] [address] Andie Holliday MD [address] [facility] [address] Health Maintenance Due Date Last Done Comments Zoster (shingles) series for age 50+ (1 of 2) 2011 Depression screening for age 12+ 11/16/2022 11/16/2021, 11/12/2021, 08/13/2020, Additional history exists COVID-19 vaccine series ( - 2022-24 season) 2023 02/12/2022, 02/11/2022, 12/23/2020, Additional history [...] 06/01/2022, 05/17/2012 Medical Devices Implanted Type Area Private Equity Analyst Device Identifier Shelf Expiration Date Model / Serial / Lot Guide Pin, Theaded / X 9 - [id number] Implanted:Qty: 1 on 04/26/2013 by John Hauser MD at [facility] Hip R-BIOMET [id number] / / NA Procedures Procedure Name Priority Date/Time Associated Diagnosis Comments SCAN-RADIOLOGY REPORT 01/08/2024 12:00 AM CDT SCAN-CT INTERPRETATION 01/07/2024 12:00 AM CDT XR SPINE LUMBAR 3 VIEWS Routine 12/22/2023 3:17 PM CDT Hip pain, right XR HIP 1 VIEW W PELVIS RIGHT Routine 12/22/2023 3:16 PM CDT Hip pain, right XR MAMMO BILAT SCREENING Routine 06/18/2022 1:52 PM PREFORMS LAMINATOR Visit for screening mammogram COLONOSCOPY SCREENING Routine 02/15/2022 12:00 AM CDT Crohn's disease without complication, unspecified gastrointestinal tract location (HC) LIPID PANEL W REFLEX MEASURED LDL Routine 02/11/2022 4:20 PM CDT Expressive language disorder Personal history of transient cerebral ischemia ANTI HIV 1/2 Routine 09/19/2020 3:15 PM PREFORMS LAMINATOR Crohn's disease without complication, unspecified gastrointestinal tract location (HC) Diarrhea, unspecified type ANTI HCV Routine 09/19/2020 3:15 PM PREFORMS LAMINATOR Need for hepatitis C screening test from Last 3 Months or Most Recently Relevant to Health Maintenance Results * SCAN-RADIOLOGY REPORT (01/08/2024 12:00 AM CDT) Anatomical Region Laterality Modality Other Scanner OTHER * SCAN-CT INTERPRETATION (01/07/2024 12:00 AM CDT) Anatomical Region Laterality Modality Other Scanner OTHER * XR SPINE LUMBAR 3 VIEWS (12/22/2023 [...] For Patients: As a result of the s Act, medical imagingexams and procedure reports are [...] For Patients: ??As a result of the s Act, medical imaging exams and procedure reports [...] XR MAMMO BILAT SCREENING (06/18/2022 1:52 PM PREFORMS LAMINATOR) Anatomical Region Laterality Modality BREASTS, Breast Left, Breast Right Bilateral Mammography Impressions 06/21/2022 4:14 PM PREFORMS LAMINATOR ??There is no radiographic evidence for malignancy. ??Recommend annual mammograms. MAMMOGRAM ASSESSMENT: ??ACR 1 Negative PATIENTS: You will also receive a letter with your examination results in an easy to read format. ??If you have questions about your results, please contact your referring provider. Narrative 06/21/2022 4:14 PM PREFORMS LAMINATOR For Patients: As a result of the Cures Act, medical imaging exams and procedure reports are released immediately into your electronic medical record. You may view this report before your referring provider. If you have questions, please contact your health care provider. XR MAMMO BILAT SCREENING [[id number]] CLINICAL HISTORY: ??This is an asymptomatic 61 y.o. patient. INDICATION FOR EXAM: Mammogram Screening. TECHNIQUE: CC & MLO views were obtained. ??This study was evaluated with the assistance of Computer-Aided Detection. COMPARISON FILM: Yes 05/20/17 [employer] ?? FINDINGS: ??The breasts are heterogeneously dense, which may obscure small masses. There are no dominant masses, suspicious micro calcifications or areas of architectural distortion. Andie Holliday MD MAMMO * COLONOSCOPY SCREENING (02/15/2022 12:00 AM CDT) Kayden Jaramillo MD GI PROCEDURE ORD * LIPID PANEL W REFLEX MEASURED LDL (02/11/2022 4:20 PM CDT) CHOLESTEROL,TOTAL 172 100 - 199 mg/dL 02/12/2022 3:18 PM CDT [facility] TRIGLYCERIDES 92 <150 mg/dL 02/12/2022 3:18 PM CDT [facility] HDL CHOLESTEROL 52 >40 mg/dL 3:18 PM CDT [facility] NON-HDL CHOLESTEROL 120 <145 mg/dl 02/12/2022 3:18 PM CDT [facility] CHOL/HDL RATIO 3.31 <4.50 02/12/2022 3:18 PM CDT [facility] LDL CHOLESTEROL 102 <=130 mg/dL 02/12/2022 3:18 PM CDT [facility] VLDL CHOLESTEROL 18 <=30 mg/dL 02/12/2022 3:18 PM CDT [facility] PROVIDER ORDERED STATUS RANDOM 02/12/2022 3:18 PM CDT [facility] Blood BLOOD SPECIMEN / Unknown Venipuncture / Unknown 02/11/2022 4:20 PM CDT 02/11/2022 4:22 PM CDT Andie Holliday MD [facility] [address] * ANTI HCV (09/19/2020 3:15 PM PREFORMS LAMINATOR) HEPATITIS C ANTIBODY Non-React yvette Non-React yvette 09/19/2020 9:14 PM PREFORMS LAMINATOR [facility] Comment:Antibodies to HCV no t detected; does not exclude the possibility of exposure to HCV. Blood BLOOD SPECIMEN / Unknown Venipuncture / Unknown 09/19/2020 3:15 PM PREFORMS LAMINATOR 09/19/2020 3:21 PM PREFORMS LAMINATOR Andie Holliday MD [email or web address] [address] [place] [address], * ANTI HIV 1/2 (09/19/2020 3:15 PM PREFORMS LAMINATOR) HIV-1/HIV-2 ANTIBODY Non-Reacti ve Non-Reacti ve 09/19/2020 9:13 PM PREFORMS LAMINATOR [facility] Comment:HIV-1 p24 and HIV-1/ HIV-2 Ab not detected. Blood BLOOD SPECIMEN / Unknown Venipuncture / Unknown 09/19/2020 3:15 PM PREFORMS LAMINATOR 09/19/2020 3:17 PM PREFORMS LAMINATOR Kayden Jaramillo MD SEND OUTS [facility] [address] [place] [address], from Last 3 Months or Most Recently [...] 7:14 AM 04/26/2013 10:14 AM Care Teams Forming Acid Dumper Relationship Specialty Start Date End Date Andie Holliday MD [address] [place] [address] PCP - General Family Practice 08/13/20
[2024-01-12 21:20] VITALS: BP 146/99; PULSE 76; RESP 16; TEMP 36.8; O2SAT 98
--- NOTE | 2024-01-12 21:29 | PM.IMHP1 ---
Hospitalist- H&P: HPI History of Present Illness Date Seen: 01/12/24 Chief complaint: pelvis pain Narrative: ADMISSION HISTORY AND PHYSICAL - HOSPITALIST Chief Complaint: I can not make it at home HPI: 63-year-old smoker, osteopenic white female returns to the hospital after being discharged 2 days ago. She was admitted on the 07 of January and discharged on the to home after a fall at work. She suffered an acute nondisplaced fracture of the right sacral ala and the right inferior pubic ramus. Her cervical spine CT showed some muscle spasm but no fracture. Her CT of her brain was normal. Her chest x-ray showed some interstitial markings predominantly the upper lobe but no airspace consolidation. She was given three days of Levaquin - was not discharged on abx, and is not hypoxic tonight. Our inpatient therapy team recommended acute rehab at a shelter facility, she declined this and home health. She thought going back to her deficiency apartment with help from her son would be enough. This proved to not be enough. She is having trouble caring for herself, making meals, making it to the bathroom. Her pain is intense and while the oxycodone does help, she finds that she is groggy and unstable and unable to care for herself when on opioids. No new falls/injuries. From Admission H/P on 01/08/24 (discharged 01/10/24 to home) Allison Resendez is seen as an Interactive Telehealth visit. Allison Resendez is a 63 year old male who is A female who presents to the hospital after a fall. She was at work when she was trying to stand over something she tripped and fell with a mechanical fall. She fell and hit her head on the wall and landed on her side. She immediately had severe pain associated with falling. Her hip was hurting. However she was able to stand up and check she started to walk. She initially thought she was okay but as she continued to walk her pain to the point where she needed assistance in ambulating. Somebody saw her on the ground picked up and brought her to the hospital In the hospital her labs showed elevated white count but no other significant abnormalities. X-ray was negative but his CT scan showed a pelvic fracture. Nondisplaced. This case was reviewed with orthopedics and they felt that this patient would likely have a nonoperative case. Patient's pain was severe and was not controlled with IV medication despite being relatively narcotic na?ve. ER COURSE: no new imaging, no new labs. given oral oxy and sent to the floor. CODE STATUS: FULL CODE EMERGENCY CONTACT PLAN: Primary Contact Name Heebr Leonard Rel To Pat Friend Cell [facility], medications and allergies in the [facility] tabs. INVESTIGATIONS: LABS/MICRO/ECG/IMAGING reviewed imaging and labs and discharge from this week. REVIEW OF SYSTEMS: 12-point ROS completed with patient and negative unless otherwise stated in HPI or below. PHYSICAL EXAM: CONSTITUTIONAL: Conversive, good historian. A/O. Knows setting and context. VITAL SIGNS: see record. HEENT: Normocephalic, atraumatic. PERRL, EOMI, conjunctivae pink, no scleral icterus. Ears and nose externally normal. Pharynx normal. NECK: No JVD. No carotid bruit, no thyromegaly, no adenopathy. CHEST: Clear to auscultation bilaterally HEART: S1 and S2 normal. No harsh murmurs. Edema none MUSCULOSKELETAL: tender globally with palpation along the lumbar spine; hips and ischial spines. no weightbearing was attempted. NVI. NEURO: Cranial nerves intact. Grossly intact. No asymmetric findings. SKIN: No rashes, petechiae, concerning changes PSYCHIATRIC: Euthymic. ADMIT TO MEDSURG: FLOOR CARE DVT: Lovenox GI: PO intake Time spent: Today I spent 75 minutes seeing the patient, discussing the patient with ER staff, reviewing [facility] and [facility] notes/diagnostics, discussing the care plan with our care time that includes social work, PT/OT, pharmacy, RT, shelter and documenting my impressions and plan in the medical record. [facility] Medical History (Updated 01/12/24 @ 22:01 by Maggie Balderrama MD) Encounter related to worker's compensation claim ?Z02.6 - Encounter for examination for insurance purposes (ICD-10) Fracture of fourth metacarpal bone of right hand ?S62.304A - Unspecified fracture of fourth metacarpal bone, right hand, initial encounter for closed fracture (ICD-10) Acute hypoxic respiratory failure ?J96.01 - Acute respiratory failure with hypoxia (ICD-10) CVA (cerebral vascular accident) ?I63.9 - Cerebral infarction, unspecified (ICD-10) Transient ischemic attack ?G45.9 - Transient cerebral ischemic attack, unspecified (ICD-10) Osteoarthritis of cervical spine ?M47.812 - Spondylosis without myelopathy or radiculopathy, cervical region (ICD-10) Cervicogenic headache ?G44.86 - Cervicogenic headache (ICD-10) Abrasion ?T14.8XXA - Other injury of unspecified body region, initial encounter (ICD-10) Cerebrovascular small vessel disease ?I67.9 - Cerebrovascular disease, unspecified (ICD-10) Acute Crohn's disease ?K50.90 - Crohn's disease, unspecified, without complications (ICD-10) Hypothyroidism ?E03.9 - Hypothyroidism, unspecified (ICD-10) Subcapital fracture of neck of right femur (07/2008) ?S72.011A - Unspecified intracapsular fracture of right femur, initial encounter for closed fracture (ICD-10) Smoker ?F17.200 - Nicotine dependence, unspecified, uncomplicated (ICD-10) Wheezing ?R06.2 - Wheezing (ICD-10) Surgical History History of appendectomy ?Z90.49 - Acquired absence of other specified parts of digestive tract (ICD-10) History of hysterectomy ?Z90.710 - Acquired absence of both cervix and uterus (ICD-10) History of open reduction and internal fixation (ORIF) procedure (07/22/08) ?Z98.890 - Other specified postprocedural states (ICD-10) Social History What is your current living situation?: I presently have a place to live Problems where you live: no known problems Problems where you live details: n/a In the past 12 months, utilities in danger of being shut off: no In past 12 months, lack of transportation kept you from medical appts, meetings, work, or getting things needed for daily living: yes In the past 12 mos, have been you worried that your food would run out before you had money to buy more?: sometimes true In the past 12 mos, the food you bought just didn't last and you didn't have money to buy more?: sometimes true Highest level of school completed/degree received: high school graduate Smoking Status: Current every day smoker What tobacco products do you use: cigarettes Do you use any of these nicotine containing products: None Second hand tobacco smoke exposure: No How often do you have a drink containing alcohol: never How often do you have six or more drinks on one occasion: Never AUDIT-C Alcohol total score: 0 Non-prescribed substance use: marijuana (any form) Caffeine: Yes (coffee and some soda) How often does anyone, including family, friends and others, physically hurt you: never How often does anyone, including family, friends and others, insult or talk down to you: never How often does anyone, including family, friends and others, threaten you with harm: never How often does anyone, including family, friends and others, scream or curse at you: never Meds Home Medications and Allergies Home Medications ?Medication ?Instructions ?Recorded ?Confirmed ?Type aspirin 81 mg tablet,delayed 81 mg PO DAILY 06/27/22 01/12/24 History release lisinopril 10 mg tablet 10 mg PO DAILY 06/27/22 01/12/24 History Allergies Allergy/AdvReac Type Severity Reaction Status Date / Time infliximab [From Remicade] Allergy Severe Anaphylaxis Verified 01/03/24 13:44 codeine Allergy Intermediate GI upset Verified 01/03/24 13:44 amoxicillin [From Augmentin] Allergy Rash Verified 01/03/24 13:44 clavulanic acid Allergy Rash Verified 01/03/24 13:44 [From Augmentin] pollen extracts AdvReac Intermediate itching Verified 01/03/24 13:44 iohexol AdvReac Mild Verified 01/03/24 13:44 Exam Const: Vital Signs, click to edit/add: Vital Signs - 24 hr 01/12/24 19:40 01/12/24 21:20 Temperature 98.1 F 98.2 F Pulse Rate [Pulse Oximeter] 76 Pulse Rate [Right Pulse Oximeter] 75 Respiratory Rate 18 16 Blood Pressure [Ri ght Arm] 146/99 H Blood Pressure [Ri ght Upper Arm] 151/78 H Pulse Oximetry 99 98 Oxygen Delivery Me thod Room Air Room Air Assessment and Plan Assessment and plan (1) Pelvic fracture: Problem comment: -readmitted for pain control and assistance with ADLs - needs TCU stay. Continued prn oxycodone, scheduled tylenol, scheduled celebrex, prn ativan, atarax. -will have social work discuss options -PT/OT to resume in the am Status: Acute (2) Smoker: Problem comment: - nicotine replacement as needed Status: Acute
[2024-01-12] MEDS: NICOTINE 14 mg PATCH 1 PATCH TRANSDERMA (22:08)
[2024-01-12] MEDS: MAGNESIUM HYDROXIDE 30 ML ORAL.SUSP PO (22:08)
[2024-01-12] MEDS: ACETAMINOPHEN 325 MG TABLET 975 MG PO (22:08)
[2024-01-12] MEDS: ENOXAPARIN 30 MG/0.3ML INJ SUBCUT (22:08)
[2024-01-12 22:18] VITALS: RESP 16; O2SAT 98
[2024-01-12 23:55] VITALS: BP 133/77; PULSE 69; RESP 18; TEMP 36.7; O2SAT 95
[2024-01-13] MEDS: ACETAMINOPHEN 325 MG TABLET 975 MG PO ×2 (03:58→09:08)
[2024-01-13 04:00] VITALS: BP 98/54; PULSE 57; RESP 14; O2SAT 98
--- NOTE | 2024-01-13 06:25 | PC.NURSE ---
Arrived to the floor around 2029 via wheelchair. Upon initial assessment pt rating pain 03/17. See eMAR for interventions. Up w/ A1 platform walker and gait belt. VSS. Using call light appropriately.
[2024-01-13 07:00] VITALS: BP 135/83; PULSE 63; RESP 15; TEMP 36.7; O2SAT 95
[2024-01-13] MEDS: CELECOXIB 200 MG CAPSULE PO (09:07)
[2024-01-13] MEDS: ASPIRIN 81 MG TABLET EC PO (09:07)
[2024-01-13] MEDS: lisinopriL 10 MG TABLET PO (09:07)
--- NOTE | 2024-01-13 09:16 | PC.SOCIAL ---
Discharge planning: Met with pt regarding d/c plan. Pt states she wants to go to a care home facility for short term rehab and expects this to be paid for by her [employer] comp. 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 Called [employer] comp worker, Guillermina [phone], who states that they are denying any payment on this claim. Guillermina states she is unable to contact pt directly regarding this decision as pt has defense attorney representation. Guillermina states all communication with the patient from [employer] will go through the attorneys. touch up worker to follow up as needed.
--- NOTE | 2024-01-13 10:42 | PM.IMPN1 ---
Progress Note: A&P Assessment and plan (1) Pelvic fracture: Problem details: - readmitted for pain control and assistance with ADLs, awaiting PT/OT evaluation - likely needs TCU stay. Continued prn oxycodone, scheduled tylenol, scheduled celebrex, prn ativan, atarax. - Having right hip pain, has h/o femoral capsular fracture/hardware and hardware removal. No reinjury since pelvic CT on 01/07, so I suspect pain is secondary to right inferior ramus fracture, but I will run it by ortho today. I have a call out to mike Mcginnis. Status: Acute (2) Smoker: Problem details: - nicotine replacement 14 mg patch Status: Acute (3) Constipation: Problem details: - Likely secondary to opioids and less frequent ambulation - Schedule senna-S daily and give MiraLAX today. Continue prn daily MiraLAX. Status: Acute Subjective Time Seen by Provider: 09:35 Date Seen: 01/13/24 Interval history: Allison c/o right groin and lateral hip pain. She notes this has been going on since her fall and is no different. She has had no reinjury or repeat fall. Denies numbness weakness or tingling. She tells me that she was able to package pick up pain medicine on and took two of the pain pills night (instead of one as prescribed) and this knocked me out, so I was able to sleep. She says we have only been giving her one pain pill at a time here, which reduces her pain, but she prefers to take two and be knocked out completely. She denies any other pain, CP or SOB. She has not had a BM since 01/06. She spoke with our SW today and is working on the work comp claim as working on an application for [employer]. Exam Narrative: Exam Narrative: General: No acute distress. Awake, alert, oriented x3. No pallor. No jaundice. While I did not see her get out of bed, I did walk in while she was moving with her platform walker to the chair. She was able to do this with 1 person assist. Oropharynx: Clear. Mucous membranes moist. Cardiovascular: Regular rate and rhythm. No murmurs, gallops, or rubs. Respiratory: Clear to auscultation bilaterally. No wheezes or crackles. Abdomen: Bowel sounds present. Soft, nondistended, nontender. Extremities: Well-healed surgical scar on the lateral right hip noted. No other deformities noted. Nontender to palpation on the right lateral hip or in the right groin. She did have some pain in the right hip with sitting forward slightly so I could listen to her lungs. No pedal edema. Const: Vital Signs, click to edit/add: Vital Signs - 24 hr 01/12/24 19:40 01/12/24 21:20 01/12/24 22:18 Temperature 98.1 F 98.2 F Pulse Rate [Pulse Oximeter] 76 Pulse Rate [Right Pulse Oximeter] 75 Respiratory Rate 18 16 16 Blood Pressure [Ri ght Arm] 146/99 H Blood Pressure [Ri ght Upper Arm] 151/78 H Pulse Oximetry 99 98 98 Oxygen Delivery Me thod Room Air Room Air Room Air 01/12/24 23:55 01/13/24 04:00 01/13/24 07:00 Temperature 98.0 F 98.1 F Pulse Rate [Pulse Oximeter] 69 57 L 63 Pulse Rate [Right Pulse Oximeter] Respiratory Rate 18 14 15 Blood Pressure [Ri ght Arm] 133/77 98/54 L 135/83 Blood Pressure [Ri ght Upper Arm] Pulse Oximetry 95 98 95 Oxygen Delivery Me thod Room Air Room Air Room Air
[2024-01-13 11:00] VITALS: BP 120/82; PULSE 81; RESP 15; TEMP 36.5; O2SAT 98
[2024-01-13] MEDS: OXYCODONE 5 MG TABLET PO (11:29)
--- NOTE | 2024-01-13 11:34 | CRLHL7_ITS ---
For Patients: As a result of the Century Cures Act, medical imaging exams and procedure reports are released immediately into your electronic medical record. You may view this report before your referring provider. If you have questions, please contact your health care provider. Indication: Right hip pain, known right hip fracture Technique: Pelvis one view Comparison: Pelvis CT 01/07/2024 Findings: Bones: Deformity of the right inferior pubic ramus and right sacrum redemonstrated. Lucent defect within the proximal right femur consistent with prior screws. Joint spaces: No dislocation. Soft tissues: Atherosclerosis. Impression: Patient`s known right inferior pubic ramus and right sacral fractures redemonstrated. No significant interval change compared to the CT scan of 6 days prior. Dictated by Bishnu Cano MD @ 01/13/2024 12:47:02 PM (Electronically Signed)
[2024-01-13] MEDS: polyethylene glycoL 3350 17 GM PACK PO (12:02)
--- NOTE | 2024-01-13 12:47 | PC.SOCIAL ---
Discharge planning: Met again with pt regarding d/c plans. Pt states that she will apply for Medical Assistance to cover the mcc if workman's comp refuses. Pt states she has had MA in the past and expects to still be eligible. Pt states she has started online MA application but needs to attach proof of income which she is not able to get while in the hospital. Pt requested social media content specialist look for transitional care placement at [facility]. Called and spoke with [facility] and sent information for evaluation for admit. Received call back from [facility] stating they can accept pt today and are aware she has not yet applied for Medical Assistance and would be considered MA pending without the application being completed. [facility] states they will assist pt with application at their facility after admit and are understanding that pt does not currently have any insurance to cover transitional care stay. Pt is being admitted to a shared room at the facility today if she can arrive by 3:00. Pt is requesting non-emergency transportation as she has no one to provide transport privately. PAS completed and submitted PAS#[id number].
--- NOTE | 2024-01-14 15:11 | PM.DS1 ---
DS: Providers Provider Time Seen by Provider: 09:35 Date Seen: 01/13/24 Date of admission: 01/12/24 20:26 Primary care physician: Andie Holliday MD Admitting Clinician: Maggie Balderrama MD Consults: 01/12/24 21:30 Consult to Occupational Therapy [CONS] Routine Comment: Reason(s) for OT Consult:: Evaluate and Treat Any Restrictions?:: No Restrictions Consult to Physical Therapy [CONS] Routine Comment: Reason(s) for PT Consult:: Evaluate and Treat Any Restrictions?:: No Restrictions Consult to Water Treatment Operator [CONS] Routine Comment: Reason for Consult:: Social Service Consult 01/13/24 11:37 Consult to Physician [CONS] Routine Comment: Consulting Provider: Tish Pang Has provider been notified: Yes Attending Physician on discharge: Linda Hendrix MD Date of Discharge: 01/13/24 DS: Diagnosis Discharge Diagnosis (1) Pelvic fracture: Status: Acute Problem details: - readmitted for pain control and assistance with ADLs, awaiting PT/OT evaluation - likely needs TCU stay. Continued prn oxycodone, scheduled tylenol, scheduled celebrex, prn ativan, atarax. - Having right hip pain, has h/o femoral capsular fracture/hardware and hardware removal. No reinjury since pelvic CT on 01/07. I spoke with Smooth De La Rosa and Lilly Pang, ortho PAs, who recommended an AP pelvis and then reviewed it. No other fractures were identified, and nonoperative management was recommended with WBAT. (2) Smoker: Status: Acute Problem details: - nicotine replacement was done during hospitalization. (3) Constipation: Status: Acute Problem details: - Likely secondary to opioids and less frequent ambulation - Schedule senna-S daily and give MiraLAX today. Continue prn daily MiraLAX. DS: Summary Hospital Course Hospital Course: Per H&P: 63-year-old smoker, osteopenic white female returns to the hospital after being discharged 2 days ago. She was admitted on the 07 of January and discharged on the to home after a fall at work. She suffered an acute nondisplaced fracture of the right sacral ala and the right inferior pubic ramus. Her cervical spine CT showed some muscle spasm but no fracture. Her CT of her brain was normal. Her chest x-ray showed some interstitial markings predominantly the upper lobe but no airspace consolidation. She was given three days of Levaquin - was not discharged on abx, and is not hypoxic tonight. Our inpatient therapy team recommended acute rehab at a snf facility, she declined this and home health. She thought going back to her deficiency apartment with help from her son would be enough. This proved to not be enough. She is having trouble caring for herself, making meals, making it to the bathroom. Her pain is intense and while the oxycodone does help, she finds that she is groggy and unstable and unable to care for herself when on opioids. No new falls/injuries. From Admission H/P on 01/08/24 (discharged 01/10/24 to home) Allison Resendez is seen as an Interactive Telehealth visit. Allison Resendez is a 63 year old male who is A female who presents to the hospital after a fall. She was at work when she was trying to stand over something she tripped and fell with a mechanical fall. She fell and hit her head on the wall and landed on her side. She immediately had severe pain associated with falling. Her hip was hurting. However she was able to stand up and check she started to walk. She initially thought she was okay but as she continued to walk her pain to the point where she needed assistance in ambulating. Somebody saw her on the ground picked up and brought her to the hospital In the hospital her labs showed elevated white count but no other significant abnormalities. X-ray was negative but his CT scan showed a pelvic fracture. Nondisplaced. This case was reviewed with orthopedics and they felt that this patient would likely have a nonoperative case. Patient's pain was severe and was not controlled with IV medication despite being relatively narcotic na?ve. ER COURSE: no new imaging, no new labs. given oral oxy and sent to the floor. Overnight she did well, but continued to have right hip and leg pain for which I spoke with Ortho and obtain an AP pelvis film. The recommendation remained non operative, there were new new injuries identified, recommended weight-bearing as tolerated. [facility] in [place] accepted her and she was discharged there today. Time Spent with Patient Time attestation: Total time spent providing and/or coordinating discharge services: Exam Narrative: Exam Narrative: General: No acute distress. Awake, alert, oriented x3. No pallor. No jaundice. While I did not see her get out of bed, I did walk in while she was moving with her platform walker to the chair. She was able to do this with 1 person assist. Oropharynx: Clear. Mucous membranes moist. Cardiovascular: Regular rate and rhythm. No murmurs, gallops, or rubs. Respiratory: Clear to auscultation bilaterally. No wheezes or crackles. Abdomen: Bowel sounds present. Soft, nondistended, nontender. Extremities: Well-healed surgical scar on the lateral right hip noted. No other deformities noted. Nontender to palpation on the right lateral hip or in the right groin. She did have some pain in the right hip with sitting forward slightly so I could listen to her lungs. No pedal edema. DS: Data Data Completed and Pending Completed studies during hospitalization: Ordering Physician: Linda Hendrix M.D. Date of Service: 01/13/24 Procedure(s): XR pelvis 1-2V Accession Number(s): [id number] cc: Linda Hendrix M.D.; Andie Holliday M.D.~ For Patients: As a result of the Century Cures Act, medical imaging exams and procedure reports are released immediately into your electronic medical record. You may view this report before your referring provider. If you have questions, please contact your health care provider. Indication: Right hip pain, known right hip fracture Technique: Pelvis one view Comparison: Pelvis CT 01/07/2024 Findings: Bones: Deformity of the right inferior pubic ramus and right sacrum redemonstrated. Lucent defect within the proximal right femur consistent with prior screws. Joint spaces: No dislocation. Soft tissues: Atherosclerosis. Impression: Patient`s known right inferior pubic ramus and right sacral fractures redemonstrated. No significant interval change compared to the CT scan of 6 days prior. Dictated by Bishnu Cano MD @ 01/13/2024 12:47:02 PM (Electronically Signed) Discharge Plan Discharge Disposition: [facility] Date of Admission: 01/12/24 20:26 Attending Provider on Discharge: Linda Hendrix Consulting Providers: Tish Pang Primary Care Provider: Andie Holliday Condition: Stable Anticipated Discharge Date/Time: 01/13/24 12:29 Discharge Medications: New oxycodone 5 mg Tablet 5 mg PO Q4H PRN (Reason: Moderate Pain) Qty: 20 0RF Continued celecoxib [Celebrex] 200 mg capsule 200 mg PO DAILY Qty: 30 0RF Rx Instructions: workmans comp (otherwise use GoodRx) aspirin 81 mg tablet,delayed release (DR/EC) 81 mg PO DAILY lisinopril 10 mg tablet 10 mg PO DAILY Changed cyclobenzaprine 5 mg tablet 5 mg PO TID PRN (Reason: muscle spasm) Qty: 20 0RF Discontinued oxycodone 5 mg Tablet 5 mg PO Q4H PRN (Reason: Moderate Pain) Qty: 30 0RF Rx Instructions: Workmans comp Discharge Orders: Discharge Order (Routine); Ordered 01/13/24 Ordered By: Samantha Maciel Activity Level: Activity as Tolerated and Use Walker Activity Detail: per PT/OT Discharge Diet: Regular Follow Up Appointments: [facility] [place] [Outside] (Patient being discharged to [facility]) Andie Holliday MD [Primary Care Provider] - (post hospital follow up when appropriate) Forms: [facility] Info Instructions Admit to: SNF Discharge Potential: Good Length of Stay: <30 days Can use facility standing orders?: Yes Code Status: Full Code TEDs: N/A Rehab Potential: Good Therapy: Physical Therapy and Occupational Therapy Therapy Orders: Evaluate and Treat Oxygen: No Urinary Catheter: No Orders are good >30 days: No Signature: REBA Quesada, PA-[facility] Hospitalist
== END 2024-01-13 13:27 ==
LOC: ED 20:14 → MEDSURG 20:27
PROVIDERS: Admitting Provider Family Medicine; Emergency Provider Emergency Medicine; PCP Family Medicine; Visit Provider Family Medicine
DX: S32.9XXA Fracture of unspecified parts of lumbosacral spine and pelvis, initial encounter for closed fracture (principal); M25.551 Pain in right hip; R10.2 Pelvic and perineal pain; K59.00 Constipation, unspecified; F11.90 Opioid use, unspecified, uncomplicated; F17.200 Nicotine dependence, unspecified, uncomplicated; W19.XXXA Unspecified fall, initial encounter; I10 Essential (primary) hypertension; I70.90 Unspecified atherosclerosis; Z79.82 Long term (current) use of aspirin; K50.90 Crohn's disease, unspecified, without complications; I67.9 Cerebrovascular disease, unspecified; E03.9 Hypothyroidism, unspecified; Z90.49 Acquired absence of other specified parts of digestive tract; Z90.710 Acquired absence of both cervix and uterus; Z86.73 Personal history of transient ischemic attack (TIA), and cerebral infarction without residual deficits; Z98.890 Other specified postprocedural states
CPT/HCPCS: 72170; 93005; 96372; 97110; 97116; 97161; 97165; 97535; 99283; A9270; G0378; J1650; S4990

== ENCOUNTER 2024-01-13 13:23 | Outpatient (CLI) | payer MEDICAID, SELFPAY ==
--- OUTSIDE RECORDS SUMMARY | 2024-01-28 23:38 | XMS_ITS | Clinical Summary ---
Author Organization [employer] Address [place], [place] [address] Care Team Providers Care Weigher Packing Name Role Phone Andie Holliday MD Primary Care Provider [phone] Allergies Active Allergy Reactions Criticality Noted Date [...] MOUTH EVERY DAY 90 Tablet 09/15/2023 Active celecoxib (CELEBREX) 200 mg capsule Take 200 mg by mouth once daily. Take 1 capsule by mouth daily workmans comp 01/11/2024 Active oxyCODONE (ROXICODONE) 5 mg capsule Take 5 mg by mouth every 6 hours if needed for Pain. Take 1 tablet by mouth every 6 hrs as needed for pain work comp 01/11/2024 Active Active Problems Problem Noted Date Diagnosed [...] Encounters Date Type Department Care Team Description 01/28/2024 Telephone [facility] [address] [place] [address] Mart Covarrubias, PT Home Care 01/27/2024 11:15 AM CDT Home Care Visit [facility] [address] [place] [address] Mart Covarrubias, PT PT - [facility] START OF CARE 01/27/2024 Plan of Care Documentation [facility] [address] [place] [address] 01/27/2024 Travel 01/25/2024 Transcribe Orders [facility] [address] [place] [address] Marlene Qureshi, CLOTH SANDER 01/24/2024 Telephone [facility] [address] [place] [address] Andie Holliday MD Fall 01/18/2024 Telephone [facility] [address] [place] [address] Andie Holliday MD Appointment 01/13/2024 Orders Only [facility] Scanner 1 scan: (1-Ord) BEULAH, PELVIS, 01/13/2024 01/12/2024 Telephone [facility] [address] [place] [address] Andie Holliday MD Follow Up 01/11/2024 Telephone [facility] [address] [place] [address] Andie Holliday MD Questions (ADMITTED TO [facility] FOR REHAB) 01/08/2024 Orders Only [facility] Scanner 1 scan: (1-Ord) BEULAH, CHEST, 01/08/2024 01/07/2024 Orders Only [facility] Scanner 1 scan: (1-Ord) BEULAH, CT PELVIS WO CON, 01/07/2024 01/07/2024 Orders Only [facility] Scanner 1 scan: (1-Ord) [facility], CT HEAD/BRAIN WO, 01/07/2024 01/07/2024 Orders Only [facility] Scanner 1 scan: (1-Ord) [facility], CT CERVICAL SPINE, 01/07/2024 12/22/2023 3:15 PM CDT Ancillary Procedure [facility] [address] [place] [address] 12/22/2023 3:00 PM CDT Ancillary Procedure [facility] [address] [place] [address] 12/22/2023 2:25 PM CDT Office Visit [facility] [address] [place] [address] Andie Holliday MD Hip Pain/problem (Right, 1 month) 12/22/2023 Travel from Last 3 Months Immunizations Name Administration Dates Next Due COVID-19 vaccine ([employer] 30mcg/0.3mL) 12YO+ SA[place]CROSE PF, MDV 02/12/2022,02/11/2022 COVID-19 vaccine ([employer] 30mcg/0.3mL) PF, MDV 12/23/2020,12/23/2020,12/02/2020 Influenza Virus, [...] Sign Reading Time Taken Comments Blood Pressure 136/88 01/27/2024 12:33 PM CDT Pulse 72 01/27/2024 12:33 PM CDT Temperature 36.8 ??C (98.3 ??F) 01/27/2024 12:33 PM C DT Respiratory Rate 18 01/27/2024 12:33 PM CDT Oxygen Saturation 93% 01/27/2024 12:33 PM CDT Inhaled Oxygen Concentration - - [...] Additional history exists COVID-19 vaccine series ( season) 2023 02/12/2022, 02/11/2022, 12/23/2020, Additional history [...] 06/01/2022, 05/17/2012 Medical Devices Implanted Type Area Hand Frame Surgical Elastic Knitter Device Identifier Shelf Expiration Date Model / Serial / Lot Guide Pin, Theaded 1/ X 9 - [id number] Implanted:Qty: 1 on 04/26/2013 by John Hauser MD at [facility] Hip R-BIOMET [id number] / / NA Procedures Procedure Name Priority Date/Time Associated Diagnosis Comments SCAN-RADIOLOGY REPORT 01/13/2024 12:00 AM CDT SCAN-RADIOLOGY REPORT 01/08/2024 12:00 AM CDT SCAN-CT INTERPRETATION 01/07/2024 12:00 AM CDT SCAN-CT INTERPRETATION 01/07/2024 12:00 AM CDT SCAN-CT INTERPRETATION 01/07/2024 12:00 AM CDT XR SPINE LUMBAR 3 VIEWS Routine 12/22/2023 3:17 PM CDT Hip pain, right XR HIP 1 VIEW W PELVIS RIGHT Routine 12/22/2023 3:16 PM CDT Hip pain, right XR MAMMO BILAT SCREENING Routine 06/18/2022 1:52 PM TRANSPORT COORDINATOR Visit for screening mammogram COLONOSCOPY SCREENING Routine 02/15/2022 12:00 AM CDT Crohn's disease without complication, unspecified gastrointestinal tract location (HC) LIPID PANEL W REFLEX MEASURED LDL Routine 02/11/2022 4:20 PM CDT Expressive language disorder Personal history of transient cerebral ischemia ANTI HIV 1/2 Routine 09/19/2020 3:15 PM TRANSPORT COORDINATOR Crohn's disease without complication, unspecified gastrointestinal tract location (HC) Diarrhea, unspecified type ANTI HCV Routine 09/19/2020 3:15 PM TRANSPORT COORDINATOR Need for hepatitis C screening test from Last 3 Months or Most Recently Relevant to Health Maintenance Results * SCAN-RADIOLOGY REPORT (01/13/2024 12:00 AM CDT) Only the most recent of2 resultswithin the time period is included. Anatomical Region Laterality Modality Other Scanner OTHER * SCAN-CT INTERPRETATION (01/07/2024 12:00 AM CDT) Only the most recent of3 resultswithin the time period is included. Anatomical Region Laterality Modality Other Scanner OTHER [...] XR MAMMO BILAT SCREENING (06/18/2022 1:52 PM TRANSPORT COORDINATOR) Anatomical Region Laterality Modality BREASTS, Breast Left, Breast Right Bilateral Mammography Impressions 06/21/2022 4:14 PM TRANSPORT COORDINATOR ??There is no radiographic evidence for malignancy. ??Recommend annual mammograms. MAMMOGRAM ASSESSMENT: ??ACR 1 Negative PATIENTS: You will also receive a letter with your examination results in an easy to read format. ??If you have questions about your results, please contact your referring provider. Narrative 06/21/2022 4:14 PM TRANSPORT COORDINATOR For Patients: As a result of the Cures Act, medical imaging exams and procedure reports are released immediately into your electronic medical record. You may view this report before your referring provider. If you have questions, please contact your health care provider. XR MAMMO BILAT SCREENING [[id number]] CLINICAL HISTORY: ??This is an asymptomatic 61 y.o. patient. INDICATION FOR EXAM: Mammogram Screening. TECHNIQUE: CC & MLO views were obtained. ??This study was evaluated with the assistance of Computer-Aided Detection. COMPARISON FILM: Yes 05/20/17 [facility] ?? FINDINGS: ??The breasts are heterogeneously dense, which may obscure small masses. There are no dominant masses, suspicious micro calcifications or areas of architectural distortion. Andie Holliday MD MAMMO * COLONOSCOPY SCREENING (02/15/2022 12:00 AM CDT) Kayden Jaramillo MD GI PROCEDURE ORD * LIPID PANEL W REFLEX MEASURED LDL (02/11/2022 4:20 PM CDT) Pathologist [facility] CHOLESTEROL,TOTAL 172 100 - 199 mg/dL 02/12/2022 3:18 PM CDT [facility] TRIGLYCERIDES 92 <150 mg/dL 02/12/2022 3:18 PM CDT [facility] HDL CHOLESTEROL 52 >40 mg/dL 3:18 PM CDT [facility] NON-HDL CHOLESTEROL 120 <145 mg/dl 02/12/2022 3:18 PM CDT [facility] CHOL/HDL RATIO 3.31 <4.50 02/12/2022 3:18 PM CDT [facility] LDL CHOLESTEROL 102 <=130 mg/dL 02/12/2022 3:18 PM CDT [facility] VLDL CHOLESTEROL 18 <=30 mg/dL 02/12/2022 3:18 PM CDT [facility] PROVIDER ORDERED STATUS RANDOM 02/12/2022 3:18 PM CDT [facility] Blood BLOOD SPECIMEN / Unknown Venipuncture / Unknown 02/11/2022 4:20 PM CDT 02/11/2022 4:22 PM CDT Andie Holliday MD CHEMI[facility] [address] [place] [address], [place] * ANTI HCV (09/19/2020 3:15 PM TRANSPORT COORDINATOR) HEPATITIS C ANTIBODY Non-React yvette Non-React yvette 09/19/2020 9:14 PM TRANSPORT COORDINATOR [facility] Comment:Antibodies to HCV no t detected; does not exclude the possibility of exposure to HCV. Blood BLOOD SPECIMEN / Unknown Venipuncture / Unknown 09/19/2020 3:15 PM TRANSPORT COORDINATOR 09/19/2020 3:21 PM TRANSPORT COORDINATOR Andie Holliday MD [facility] [address] [place] [address], * ANTI HIV 1/2 (09/19/2020 3:15 PM TRANSPORT COORDINATOR) HIV-1/HIV-2 ANTIBODY Non-Reacti ve Non-Reacti ve 09/19/2020 9:13 PM TRANSPORT COORDINATOR [facility] Comment:HIV-1 p24 and HIV-1/ HIV-2 Ab not detected. Blood BLOOD SPECIMEN / Unknown Venipuncture / Unknown 09/19/2020 3:15 PM TRANSPORT COORDINATOR 09/19/2020 3:17 PM TRANSPORT COORDINATOR Kayden Jaramillo MD [facility] [address] [place] [address], from Last 3 Months or Most Recently [...] 7:14 AM 04/26/2013 10:14 AM Care Teams Weigher Packing Relationship Specialty Start Date End Date Andie Holliday MD [address] [place] [address] PCP - General Family Practice 08/13/20
== END 2024-01-13 13:24 | disposition home or self-care (01) ==
LOC: AMB 01-28 23:35
PROVIDERS: PCP Family Medicine; Visit Provider Family Medicine
DX: S32.19XS Other fracture of sacrum, sequela (principal); S72.001S Fracture of unspecified part of neck of right femur, sequela
CPT/HCPCS: A0425; A0428

== ENCOUNTER 2025-04-22 11:40 | Emergency (ER) | payer OTHER, SELFPAY ==
[2025-04-22] VITALS (26 sets, daily range): BP systolic 105–157; BP diastolic 62–89; PULSE 61–100; RESP 16–24; TEMP 35.9; O2SAT 91–99; BMI 19.1
--- OUTSIDE RECORDS SUMMARY | 2025-04-22 12:42 | XMS_ITS | CCD ---
Author Organization Unknown Care Team Providers Care Gastroenterologist Name Role Phone [place], [place] Primary Care Provider Unava ilable Unavailable Chronic Care Management Unavaila ble Summary Purpose [employer] Insurance Providers Payer name Policy type / Coverage type Covered republican ID Effective Begin Date Effective End Date [employer] ([facility]) Medicaid [id number] Unknown Unknown Family History Family History data not found Medication Administered No Medication Administered data Reason For Visit No Reason For Visit data
--- NOTE | 2025-04-22 14:01 | ED.GENADULT ---
HPI - General Adult General Date Seen: 04/22/25 Chief complaint: Extremity Pain/Injury, Lower Stated complaint: R leg pain Time Seen by Provider: 04/22/25 14:01 History of Present Illness HPI narrative: 64 yo F with past medical history of hypertension, coronary disease with stent, previous stroke, psoriasis, hypothyroidism, hyperlipidemia, Crohn's disease, pelvic fractures, tobacco use, chronic alcohol abuse, lung nodules. She reports that she does have a history sciatica and back problems off and on over several years. Sounds like she has occasional flares and when her back flares up she goes to a local chiropractor and it gets better. She has never really had to see a orientation and mobility specialist. She has never had steroid injections or any back surgery. About a week ago she was coughing because of her allergies when she had an abrupt worsening of her low back pain (points to her lower lumbar spine in the midline and ever since then her back pain has been fairly severe. Along with that she has got new pain and numbness radiating down her right buttock, right posterolateral thigh and into the right lateral calf and down into the lateral foot. Her legs not really weak but sometimes it gives out because it hurts when she tries to walk. She has pain with moving and also pain with resting. I think she really does makes it better. She has been trying to rest and have a get better but it just isn't. She called her chiropractor who recommended that she come to the ER rather than be seen in the chiropractor's office. She is not having any fever chills. She does not think she is on any anticoagulants. It hurts to sit on the toilet but she is able to urinate and defecate normally. No numbness or weakness in her left leg. She does not know her current medication list. She sees doctors anti the [facility]. Current medically redd list includes albuterol, baby aspirin, lisinopril, nicotine nasal spray, rosuvastatin. She is unable to remember all of her allergies but she says she went through with the nurses today and her allergy list in the computer is up-to-date. Related Data Home Medications ?Medication ?Instructions ?Recorded ?Confirmed aspirin 81 mg tablet,delayed 81 mg PO DAILY 06/27/22 04/22/25 release lisinopril 10 mg tablet 10 mg PO DAILY 06/27/22 04/22/25 Previous Rx's ?Medication ?Instructions ?Recorded oxycodone 5 mg tablet 5 mg PO Q4H PRN Moderate Pain #20 01/13/24 tabs Allergies Allergy/AdvReac Type Severity Reaction Status Date / Time infliximab (From Remicade) Allergy Severe Anaphylaxis Verified 03/06/24 14:47 codeine Allergy Intermediate GI upset Verified 03/06/24 14:47 amoxicillin (From Augmentin) Allergy Rash Verified 03/06/24 14:47 clavulanic acid (From Allergy Rash Verified 03/06/24 14:47 Augmentin) pollen extracts AdvReac Intermediate itching Verified 03/06/24 14:47 iohexol AdvReac Mild Verified 03/06/24 14:47 PFSH PFSH Medical History (Updated 03/06/24 @ 23:49 by Smooth De La Rosa PA-C) Cerebrovascular small vessel disease ?I67.9 - Cerebrovascular disease, unspecified (ICD-10) Vasomotor symptoms due to menopause (03/02/17) ?N95.1 - Menopausal and female climacteric states (ICD-10) Tobacco abuse ?Z72.0 - Tobacco use (ICD-10) Subcortical infarction ?I63.9 - Cerebral infarction, unspecified (ICD-10) Psoriasis (11/16/17) ?L40.9 - Psoriasis, unspecified (ICD-10) Lung nodule ?R91.1 - Solitary pulmonary nodule (ICD-10) Hypothyroidism (acquired) (11/18/17) ?E03.9 - Hypothyroidism, unspecified (ICD-10) Hyperlipidemia LDL goal <70 ?E78.5 - Hyperlipidemia, unspecified (ICD-10) History of colon polyps (02/17/22) ?Z86.010 - Personal history of colonic polyps (ICD-10) Crohn's disease of both small and large intestine with rectal bleeding (03/02/17) ?K50.811 - Crohn's disease of both small and large intestine with rectal bleeding (ICD-10) Chronic obstructive pulmonary disease (12/30/20) ?J44.9 - Chronic obstructive pulmonary disease, unspecified (ICD-10) Chronic alcohol abuse (09/02/10) ?F10.10 - Alcohol abuse, uncomplicated (ICD-10) Encounter related to worker's compensation claim ?Z02.6 - Encounter for examination for insurance purposes (ICD-10) Fracture of fourth metacarpal bone of right hand ?S62.304A - Unspecified fracture of fourth metacarpal bone, right hand, initial encounter for closed fracture (ICD-10) Acute hypoxic respiratory failure ?J96.01 - Acute respiratory failure with hypoxia (ICD-10) CVA (cerebral vascular accident) ?I63.9 - Cerebral infarction, unspecified (ICD-10) Transient ischemic attack ?G45.9 - Transient cerebral ischemic attack, unspecified (ICD-10) Osteoarthritis of cervical spine ?M47.812 - Spondylosis without myelopathy or radiculopathy, cervical region (ICD-10) Cervicogenic headache ?G44.86 - Cervicogenic headache (ICD-10) Abrasion ?T14.8XXA - Other injury of unspecified body region, initial encounter (ICD-10) Cerebrovascular small vessel disease ?I67.9 - Cerebrovascular disease, unspecified (ICD-10) Acute Crohn's disease ?K50.90 - Crohn's disease, unspecified, without complications (ICD-10) Hypothyroidism ?E03.9 - Hypothyroidism, unspecified (ICD-10) Subcapital fracture of neck of right femur (07/2008) ?S72.011A - Unspecified intracapsular fracture of right femur, initial encounter for closed fracture (ICD-10) Smoker ?F17.200 - Nicotine dependence, unspecified, uncomplicated (ICD-10) Wheezing ?R06.2 - Wheezing (ICD-10) Surgical History History of appendectomy ?Z90.49 - Acquired absence of other specified parts of digestive tract (ICD-10) History of hysterectomy ?Z90.710 - Acquired absence of both cervix and uterus (ICD-10) History of open reduction and internal fixation (ORIF) procedure (07/22/08) ?Z98.890 - Other specified postprocedural states (ICD-10) Social History (Reviewed 03/06/24 @ 14:46 by Angella Saunders ~ [facility], [facility]) What is your current living situation?: I presently have a place to live Problems where you live: no known problems Problems where you live details: n/a In the past 12 months, utilities in danger of being shut off: no In past 12 months, lack of transportation kept you from medical appts, meetings, work, or getting things needed for daily living: yes In the past 12 mos, have been you worried that your food would run out before you had money to buy more?: sometimes true In the past 12 mos, the food you bought just didn't last and you didn't have money to buy more?: sometimes true Highest level of school completed/degree received: high school graduate Smoking Status: Current every day smoker What tobacco products do you use: cigarettes Do you use any of these nicotine containing products: None Second hand tobacco smoke exposure: No How often do you have a drink containing alcohol: never How often do you have six or more drinks on one occasion: Never AUDIT-C Alcohol total score: 0 Non-prescribed substance use: marijuana (any form) Caffeine: Yes (coffee and some soda) How often does anyone, including family, friends and others, physically hurt you: never How often does anyone, including family, friends and others, insult or talk down to you: never How often does anyone, including family, friends and others, threaten you with harm: never How often does anyone, including family, friends and others, scream or curse at you: never Health Related Social Needs: food insecurity (Z59.41) and transportation insecurity (Z59.82) Exam Narrative: Exam Narrative: Constitutional: Appears well-developed and well-nourished. Alert. Conversant but somewhat limited historian. She seems very uncomfortable and cannot lay flat on her back because of her low back and right leg pain. HENT: Head: Atraumatic. Nose: Nose normal. Mouth/Throat: Oral mucosa is clear and moist. no trismus. Eyes: Conjunctivae normal. EOM normal. Pupils equal, round, and reactive to light. No scleral icterus. Neck: Normal range of motion. Neck supple. No tracheal deviation present. Cardiovascular: Normal rate, regular rhythm. No gallop. No friction rub. No murmur heard. Symmetric DP artery pulses Pulmonary/Chest: Effort normal. No stridor. No respiratory distress. No wheezes. No rales. No rhonchi . No ribcage tenderness. Abdominal: Soft. No distension. No mass. No tenderness. No rebound. No guarding. Musculoskeletal: RUE: Normal range of motion. No tenderness. No deformity LUE: Normal range of motion. No tenderness. No deformity RLE: Normal range of motion. No edema. Tenderness over the right posterior thigh and lateral calf without any bruising, rash, redness, swelling.. No deformity LLE: Normal range of motion. No edema. No tenderness. No deformity She does endorse pain in tenderness without any step-off or bruising over the lower midline lumbar spine and posterior sacrum. Neurological: Alert and oriented to person, place, and time. Normal strength. CN II-VII intact. No sensory deficit. GCS eye subscore is 4. GCS verbal subscore is 5. GCS motor subscore is 6. Normal coordination Sensory: Complains of subjective paresthesias on the right posterolateral thigh, lateral calf, a lateral malleolus. Otherwise normal on the medial malleolus, dorsal 1st webspace of the right foot. Normal on the left lower extremity. Strength: 5/5 strength hip flexors (L3) on the right and left 5/5 strength in the quadriceps (L4) on the right and left 5/5 strength in the tibialis anterior 5/5 strength in the EHL (L5) on the right and left 5/5 strength in the gastrocnemius (S1) on the right and left 5/5 strength in the hamstring on the right and left DTRs: 2/for the left patella, 1/4 in the right patella. Unable to elicit Achilles tendon reflexes on either side. Positive straight leg on the right side. Skin: Skin is warm and dry. No rash noted. No pallor. Normal capillary refill. Psychiatric: Normal mood. Normal affect. Const: Vital Signs, click to edit/add: Vital Signs - 24 hr 04/22/25 12:30 04/22/25 15:03 04/22/25 15:15 Temperature 96.6 F L Pulse Rate 71 73 Pulse Rate [Pulse Oximeter] 100 Respiratory Rate 24 Blood Pressure Blood Pressure [Le ft Upper Arm] 157/89 H Pulse Oximetry 98 99 Oxygen Delivery Me thod Room Air 04/22/25 15:20 04/22/25 15:30 04/22/25 15:45 Temperature Pulse Rate 76 69 Pulse Rate [Pulse Oximeter] 70 Respiratory Rate 16 16 Blood Pressure Blood Pressure [Le ft Upper Arm] 118/83 Pulse Oximetry 93 95 95 Oxygen Delivery Me thod Room Air 04/22/25 16:00 04/22/25 16:12 04/22/25 16:15 Temperature Pulse Rate 61 71 73 Pulse Rate [Pulse Oximeter] Respiratory Rate Blood Pressure 124/86 Blood Pressure [Le ft Upper Arm] Pulse Oximetry 94 93 93 Oxygen Delivery Me thod 04/22/25 16:17 04/22/25 16:30 04/22/25 16:31 Temperature Pulse Rate 71 69 70 Pulse Rate [Pulse Oximeter] Respiratory Rate Blood Pressure 120/80 118/83 Blood Pressure [Le ft Upper Arm] Pulse Oximetry 92 92 93 Oxygen Delivery Me thod Course Course ED Course: Recheck-as pain in her back and down her leg are now much improved after Dilaudid and Valium. Additional meds ordered. Awaiting MRI to be done in about . Discussed with my partner, Dr. Laurent at 5:00 p.m.. She will follow-up on the MRI results and recheck the patient for pain control. Thus far in the ER she has been having difficulty mobilizing even to move around in bed, and so far has not been able to get up and walk . Hopefully pain will be controlled after additional medications. Anticipate will probably show a lumbar disc herniation with impingement on the right S1 nerve root. If pain controlled MRI shows expected findings can discharge home with a course of pain and muscle relaxers. Short course of steroids. Will need close outpatient follow-up with spine clinic. Vital Signs Vital signs: Initial Vital Signs Temperature 96.6 F L 04/22/25 12:30 Temperature Source Temporal Artery Scan 04/22/25 12:30 Pulse Rate 100 04/22/25 12:30 Respiratory Rate 04/22/25 12:30 Blood Pressure 157/89 H 04/22/25 12:30 Blood Pressure Mean 111 H 04/22/25 12:30 Blood Pressure Position Sitting 04/22/25 12:30 Pulse Oximetry 98 04/22/25 12:30 Oxygen Delivery Method Room Air 04/22/25 12:30 Vital Signs Temperature 96.6 F L 04/22/25 12:30 Pulse Rate 100 04/22/25 12:30 Respiratory Rate 04/22/25 12:30 Blood Pressure 157/89 H 04/22/25 12:30 Pulse Oximetry 98 04/22/25 12:30 Oxygen Delivery Method Room Air 04/22/25 12:30 Temperature 96.6 F L 04/22/25 12:30 Pulse Rate 70 04/22/25 16:31 Respiratory Rate 16 04/22/25 15:30 Blood Pressure 118/83 04/22/25 16:31 Pulse Oximetry 93 04/22/25 16:31 Oxygen Delivery Method Room Air 04/22/25 15:20 Medications Administered Medications: Generic Name Dose Route Start Last Admin Trade Name Freq PRN Reason Stop Dose Admin Hydromorphone HCl 0.5 mg 04/22/25 14:19 04/22/25 14:52 Hydromorphone 0.5 Mg/0.5 Ml Inj IVP 0.5 mg Q1H PRN Administration Pain Discontinued Medications Generic Name Dose Route Start Last Admin Trade Name Freq PRN Reason Stop Dose Admin Diazepam 5 mg 04/22/25 14:19 04/22/25 16:04 Diazepam 5 Mg/Ml Inj IV 04/22/25 14:20 5 mg ONCE ONE Administration Hydromorphone HCl 0.5 mg 04/22/25 16:03 04/22/25 17:16 Hydromorphone 0.5 Mg/0.5 Ml Inj IVP 04/22/25 16:04 0.5 mg ONCE ONE Administration Ondansetron HCl 4 mg 04/22/25 16:13 04/22/25 16:19 Ondansetron 2 Mg/Ml Inj IVP 04/22/25 16:14 4 mg ONCE ONE Administration Medical Decision Making [facility] Narrative Medical decision making narrative: This patient presented with an acute exacerbation of low back pain with pain and numbness radiating down her right leg, I think corresponding to the right S1 nerve root distribution.. Broad differential considered. The patient did not sustain any trauma, therefore x-rays are not necessary due to the low likelihood of fracture or subluxation. The patient has not had a fever, saddle/perineal anesthesia, bilateral foot numbness, or bowel or bladder dysfunction. There is no clinical evidence of cauda equina syndrome, discitis, spinal/epidural space hematoma or epidural abscess. However, given the patient's age, medical comorbidities with previous stroke, as well as fairly debilitating pain, we did feel that MR imaging was indicated here. At the time of this dictation MRI results are pending. Discussed with my partner, Dr. Laurent. She will follow-up on results and recheck the patient. Clinical impression at this time 1. Acute exacerbation of low back 2. Right lower extremity radiculopathy, suspect S1 dermatome Discharge Plan Discharge Prescriptions: No Action aspirin 81 mg tablet,delayed release (DR/EC) 81 mg PO DAILY lisinopril 10 mg tablet 10 mg PO DAILY oxycodone 5 mg Tablet 5 mg PO Q4H PRN (Reason: Moderate Pain) Qty: 20 0RF Follow Up/Referrals: Andie Holliday MD [Primary Care Provider, Family Practice]
--- NOTE | 2025-04-22 14:24 | CRLHL7_ITS ---
For Patients: As a result of the Century Cures Act, medical imaging exams and procedure reports are released immediately into your electronic medical record. You may view this report before your referring provider. If you have questions, please contact your health care provider. Indication: Lumbar back pain, right lower extremity radiculopathy Technique: Multiplanar, multisequence, MRI of the lumbar spine, obtained without contrast. Comparison: None Findings: Preserved lumbar lordosis. Grade 1 retrolisthesis at L1-2. Mild chronic inferior endplate anterior wedge compression deformity at L3, with superimposed inferior endplate Schmorl`s node and minor type 1 Modic signal change. No acute osseous abnormality or suspicious bone marrow lesion. Conus medullaris terminates at L1. Tiny right renal cysts. Unremarkable included SI joints. T12-L1: Mild disc bulge. No neural foraminal or spinal canal stenosis. L1-L2: Mild disc bulge. No neural foraminal or spinal canal stenosis. L2-L3: Mild disc bulge, shallow right central protrusion. No neural foraminal or spinal canal stenosis. L3-L4: Mild disc bulge. No neural foraminal or spinal canal stenosis. L4-L5: Mild disc bulge, shallow left foraminal protrusion. No right, mild left neural foraminal narrowing. No spinal canal stenosis. L5-S1: Mild disc bulge, right subarticular caudal disc extrusion impinging the descending right S1 nerve root. No neural foraminal or central spinal canal stenosis. Impression: 1. At L5-S1, right subarticular caudal disc extrusion impinges the descending right S1 nerve root. 2. At L4-L5, shallow left foraminal disc protrusion contributes to mild left neural foraminal narrowing. 3. Mild chronic anterior wedge compression deformity at L3. Dictated by Martha Quezada MD @ 04/22/2025 5:46:53 PM (Electronically Signed)
--- OUTSIDE RECORDS SUMMARY | 2025-04-22 14:40 | XMS_ITS | Clinical Summary ---
Author Organization [facility] Address [address] [place] [id number] Care Team Providers Care Massage Operator Name Role Phone Andie Holliday MD Primary Care Provider Allergies Active Allergy Reactions Criticality Noted Date Comments Amoxicillin-Pot Clavulanate Rash 04/26/2013 Codeine GI Upset,Nausea Only 09/02/2010 Upset stomach Iohexol Nausea Only 07/14/[address] contrast (Omnipaque) caused itching all over on 10/04/14. Pollen Extracts Runny Nose,Itching 04/25/2013 Seasonal allergies Infliximab Anaphylaxis High 09/19/2020 Medications nicotine 10 mg/mL nasal sprayIndications :Encounter for smoking cessation counseling Inhale 1 [place] in both nostrils every hour while awake as needed for Nicotine Craving. 40 mL 2 5 Active albuterol HFA (Ventolin HFA) 90 mcg/actuation inhalerIndicatio ns:Chronic obstructive pulmonary disease, unspecified COPD type (HC) Inhale 2 Puffs by mouth each time if needed for Shortness Of Breath. 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 90 Tablet 3 5 Active Active Problems Problem Noted Date Diagnosed Date CAD in hamilton artery 03/05/2025 History of pelvic fracture 03/05/2025 HTN (hypertension) 03/05/2025 Coronary artery disease invo lving hamilton coronary artery of hamilton heart without angina pectoris 01/25/2025 Overview (01/25/2025): Visualized on CT 2024 Centrilobular emphysema 01/25/2025 Overview (01/25/2025): On CT chest in 2024 IMPRESSION: 1. Negative for the purpose of lung cancer screening. Lung-RADS CATEGORY 2: BENIGN APPEARANCE OR BEHAVIOR: Continue annual screening with low-dose chest CT in 12 months. 2. Centrilobular emphysema and upper lobe apical scarring bilaterally. 3. Coronary artery disease. History of colon polyps 02/17/2022 Overview (02/17/2022): Colonoscopy 02/2022 normal, repeat in 5 years [...] and large intestine with rectal bleeding 03/02/2017 Overview (02/17/2022): Colonoscopy 02/2022 normal, repeat in 5 years Crohn disease 10/07/2011 Chronic alcohol abuse 09/02/2010 Subcortical infarction Hyperlipidemia LDL goal <70 Tobacco abuse Cerebrovascular small vessel disease Lung nodule Overview (08/13/2020): LLL, 6 mm- CT 02/18/14 Resolved Problems Problem Noted Date Diagnosed Date Resolved Date Symptoms, such as flushing, sleeplessness, headache, lack of concentration, associated with the menopause 03/02/2017 03/02/2017 Encounters Date Type Department Care Team Description 03/25/2025 Travel 03/12/2025 Telephone [facility] [address] [place] [address] Andie Holliday MD Blood Pressure 03/06/2025 Telephone [facility] [address] [place] [address] Andie Holliday MD Results 03/05/2025 2:00 PM CDT Office Visit [facility] [address] [place] [address] Andie Holliday MD Hip Pain/problem 03/05/2025 1:35 PM CDT Office Visit [facility] [address] [place] [address] Andie Holliday MD Follow Up (From 01/16/25/) 03/05/2025 Travel 02/11/[address] [address] Andie Holliday MD Form (Social Security) 01/28/2025 Telephone [facility] [address] [place] [address] Andie Holliday MD Results 01/23/2025 1:00 PM CDT Ancillary Procedure [facility] [address] [place] [address] 01/23/2025 Travel from Last 3 Months Immunizations Immunization Administration Dates Next Due COVID-19 vaccine ([employer] 30mcg/0.3mL) 12YO+ SAÚL-SUCROSE PF, MDV 02/12/2022,02/11/2022 COVID-19 vaccine ([employer] 30mcg/0.3mL) PF, MDV 12/23/2020,12/23/2020,12/02/2020 Influenza Virus, Unspecified [...] Used Date Smoking Tobacco: Some Days Cigarettes 0.6 37.2 Started: 1976; Last attempted to quit: 02/05/2013 Smokeless Tobacco: Never Alcohol Use Standard Drinks/Week Comments Not Currently 4 (1 standard drink = 0.6 oz pur e alcohol) PHQ-2 Answer Date Recorded PHQ-2 TOTAL SCORE 0 11/12/2021 Social Connections Answer Date Recorded Do you often feel lonely or isolated from those around you? 0 01/16/2025 Financial Resource Strain Answer Date R ecorded Difficulty of Paying Living Expenses 3 01/16/2025 Difficulty of Paying Living Expenses Not on file 01/16/2025 Food Insecurity Answer Date Recorded Do you worry your food will run out before you are able to buy more? 1 01/16/2025 Transportation Needs Answer Date Record ed Does lack of transportation keep you from medica l appointments? 2 01/16/2025 Does lack of transportation keep you from work, meetings or getting things that you need? 2 01/16/2025 Housing Stability Answer Date Recorded What is your housing situation today? 1 01/16/2025 Utilities Answer Date Recorded Do you have trouble paying f or utilities (for example, heat, electricity, water, phone)? 1 01/16/2025 Comments No Sex and Gender Information Value Date Recorded Sex Assigned at Not on file Legal Sex Female 6:06 AM HULL INSPECTOR Gender Identity Not on file Sexual Orientation Not on file Occupation Industry Job Start Date Job End Date unemployed Not on file Not on file Not on file Obstetrics History Last Filed Vital Signs Vital Sign Reading Time Taken Comments Blood Pressure 138/84 03/05/2025 2:23 PM CDT Pulse 86 03/05/2025 1:54 PM CDT Temperature 36.5 C (97.7 F) 03/09/2024 11:40 AM CDT Respiratory Rate 14 03/09/2024 11:40 AM CDT Oxygen Saturation 100% 03/05/2025 1:54 PM CDT Inhaled Oxygen Concentration - - Weight 54.7 kg (120 lb 9.6 oz) 03/05/2025 1:54 P M CDT Height 167.6 cm (5' 6) 06/01/2022 2:14 PM CDT Body Mass Index 19.47 06/01/2022 2:14 PM CDT Plan of Treatment Upcoming Encounters Date Type Department Care Team (Late st Contact Info) Description 04/23/2025 1:00 PM CDT Office Visit [facility] [address] [place] [address] Calos Celis MD [address] [facility] [address] [place] [address] Health Maintenance Due Date Last Done Comments Zoster (shingles) series for age 50+ (1 of 2) 2011 RSV vaccine for adults or (1 - Risk 60-74 years 1-dose series) 2021 Depression screening for age 12+ 11/16/2022 11/16/2021, 11/12/2021, 08/13/2020, Additional history exists BMI (ht and wt on same day) for age 18+ 06/01/2023 06/01/2022, 11/12/2021, 11/17/2020, Additional history exists Mammogram for age 45-75 06/18/2023 06/18/20, 05/20/2017, 08/18/2015, Additional history exists COVID-19 vaccine series ( season) 2025 02/12/2022, 02/11/2022, 12/23/2020, Additional history exists Influenza Vaccine (#1) 2025 , 05/20/2017, 05/11/2017, Additional history exists Low Dose CT (for lung CA) age 50-80 01/23/2026 01/23/2025 Colonoscopy through age 75 02/15/202702/15, 02/15/2022, 04/29/2016, Additional history exists Lipids for age 45-75 03/05/2030 03/05/2025, 01/16/2025, 02/11/2022, Additional history exists Tetanus booster 06/01/2032 06/01/2022, 05/17/2012 HIV for age 15-65 Completed 09/19/2020 Hepatitis C screening for age 18-79 Completed 09/19/2020 Pneumococcal series for age 50+ Completed 02/12/2022, 02/11/2022, 05/03/2012 Hepatitis B series for 19+ Aged Out N o longer eligible based on patient's age to complete this topic Medical Devices Implanted Type Area Stone Trimmer Device Identifier Shelf Expiration Date Model / Serial / Lot Joya Cat 08/15 X 9 - [id number] Implanted:Qty: 1 on 04/26/2013 by John Hauser MD at [facility] Hip R-BIOMET [id number] / / NA Procedures Procedure Name Priority Date/Time Associated Diagnosis Comments LIPID PANEL W REFLEX MEASURED LDL Routine 03/05/2025 2:55 PM CDT CAD in hamilton artery BASIC METABOLIC PANEL Routine 03/05/2025 2:55 PM CDT HTN (hypertension) CT CHEST SCREENING LOW DOSE WO CONTRAST Routine 01/23/2025 1:10 PM CDT Encounter for screening for lung cancer XR MAMMO BILAT SCREENING Routine 06/18/2022 1:52 PM HULL INSPECTOR Visit for screening mammogram COLONOSCOPY SCREENING Routine 02/15/2022 12:00 AM CDT Crohn's disease without complication, unspecified gastrointestinal tract location (HC) ANTI HIV 1/2 Routine 09/19/2020 3:15 PM HULL INSPECTOR Crohn's disease without complication, unspecified gastrointestinal tract location (HC) Diarrhea, unspecified type ANTI HCV Routine 09/19/2020 3:15 PM HULL INSPECTOR Need for hepatitis C screening test from Last 3 Months or Most Recently Relevant to Health Maintenance Results * (ABNORMAL) LIPID PANEL W REFLEX MEASURED LDL (03/05/2025 2:55 PM CDT) Pathologist [facility] CHOLESTEROL, TOTAL 242(H) <200 mg/dL [facility] HDL CHOLESTEROL 52 > OR = 50 mg/dL [facility] TRIGLYCERIDES 173(H) <150 mg/dL [facility] LDL-CHOLESTEROL 157(H) mg/dL (calc) [facility] Comment: Reference range: <100 Desirable range <100 mg/dL for primary prevention; <70 mg/dL for patients with CHD or diabetic patients with > or = 2 CHD risk factors. LDL-C is now calculated using the Kayden-Han calculation, which is a validated novel method providing better accuracy than the Friedewald equation in the estimation of LDL-C. Kayden SS et al. FIONA. 2013;310(19): 9712-7454 (http://education.Arvinas.Dealflow.com/faq/MTB795) CHOL/HDLC RATIO 4.7 <5.0 (calc) [facility] NON HDL CHOLESTEROL 190(H) <130 mg/dL (calc) [facility] Comment: For patients with diabetes plus 1 major ASCVD risk factor, treating to a non-HDL-C goal of <100 mg/dL (LDL-C of <70 mg/dL) is considered a therapeutic option. Blood BLOOD SPECIMEN / Unknown 03/05/2025 2:55 PM CDT 03/05/2025 2:55 PM CDT Andie Holliday MD CHEMISTRY Final Resul t Performing Organization Address City/[facility]/ZIP Co de Phone Number [facility] [address] [place] [address], [place] [phone] [facility] [address] [facility] [place] [address] * BASIC METABOLIC PANEL (03/05/2025 2:55 PM CDT) [facility] GLUCOSE 76 65 - 99 mg/dL [facility] Comment: Fasting reference interval UREA NITROGEN (BUN) 15 7 - 25 mg/dL [facility] CREATININE 0.75 0.50 - 1.05 mg/dL [facility] EGFR 89 > OR = 60 mL/min/1. 73m2 [facility] BUN/CREATININE RATIO SEE NOTE: 6 - 22 (calc) [facility] Comment: Not Reported: BUN and Creatinine are within reference range. SODIUM 141 135 - 146 mmol/L [facility] POTASSIUM 4.2 3.5 - 5.3 mmol/L [facility] CHLORIDE 105 98 - 110 mmol/L [facility] CARBON DIOXIDE 27 20 - 32 mmol/L [facility] ELECTROLYTE BALANCE 9 7 - 17 mmol/L (calc) [facility] CALCIUM 9.5 8.6 - 10.4 mg/dL [facility] Blood BLOOD SPECIMEN / Unknown 03/05/2025 2:55 PM CDT 03/05/2025 2:55 PM CDT Andie Holliday MD CHEMISTRY Final Resul t Performing Organization Address [facility]/ZIP Co de Phone Number [employer] [facility] [address] [place] [address], [place] [phone] [facility] [address] [place] [address] * CT CHEST SCREENING LOW DOSE WO CONTRAST [[id number]] -- Criteria: must meet ALL: Age 50-80, current smoker or quit within the last 15 years, AND 20+ pack-year history (01/23/2025 1:10 PM CDT) Anatomical Region Laterality Modality Computed Tomogra phy Impressions 01/25/2025 4:06 PM CDT 1. Negative for the purpose of lung cancer screening. Lung-RADS CATEGORY 2: BENIGN APPEARANCE OR BEHAVIOR: Continue annual screening with low-dose chest CT in 12 months. 2. Centrilobular emphysema and upper lobe apical scarring bilaterally. 3. Coronary artery disease. Please note that all CT scans at this facility use dose modulation, iterative reconstruction and/or weight-based dosing when appropriate to reduce radiation dose to as low as reasonably achievable. Dictated by: Cipriano Guerrero MD @01/25/2025 9:09:28 AM/maylin Narrative 01/25/2025 4:06 PM CDT For Patients: As a result of the Cures Act, medical imaging exams and procedure reports are released immediately into your electronic medical record. You may view this report before your referring provider. If you have questions, please contact your health care provider. CT CHEST SCREENING LOW-DOSE WITHOUT CONTRAST, 01/23/2025 INDICATION: Lung cancer screening. Significant smoking history. TECHNIQUE: Low-dose volumetric helical scanning of the thorax was performed without IV contrast material. Coronal and sagittal reconstructions were obtained. COMPARISON: None. FINDINGS: A noncalcified 5 mm right upper lobe nodule is demonstrated on image 64 of series 3. A number of smaller noncalcified nodules are demonstrated in both lungs. Several calcified granulomas are noted in the left lung. Centrilobular emphysema is demonstrated lung with upper lobe apical scarring bilaterally. There is no significant airway abnormality. No pleural effusion is demonstrated. There is no mediastinal or hilar lymph adenopathy. The heart size is normal. Calcified coronary arterial plaque is demonstrated. Images of the upper abdomen are unremarkable. us Andie Holliday MD CT Final Resul t * XR MAMMO BILAT SCREENING (06/18/2022 1:52 PM HULL INSPECTOR) Anatomical Region Laterality Modality BREASTS, Breast Left, Breast Right Bilateral Mammography Impressions 06/21/2022 4:14 PM HULL INSPECTOR There is no radiographic evidence for malignancy. Recommend annual mammograms. MAMMOGRAM ASSESSMENT: ACR 1 Negative PATIENTS: You will also receive a letter with your examination results in an easy to read format. If you have questions about your results, please contact your referring provider. Narrative 06/21/2022 4:14 PM HULL INSPECTOR For Patients: As a result of the Century Cures Act, medical imaging exams and procedure reports are released immediately into your electronic medical record. You may view this report before your referring provider. If you have questions, please contact your health care provider. XR MAMMO BILAT SCREENING [[id number]] CLINICAL HISTORY: This is an asymptomatic 61 y.o. patient. INDICATION FOR EXAM: Mammogram Screening. TECHNIQUE: CC & MLO views were obtained. This study was evaluated with the assistance of Computer-Aided Detection. COMPARISON FILM: [facility] FIND[facility]: The breasts are heterogeneously dense, which may obscure small masses. There are no dominant masses, suspicious micro calcifications or areas of architectural distortion. Andie Holliday MD MAMMO Final Resul t * COLONOSCOPY SCREENING (02/15/2022 12:00 AM CDT) Kayden Jaramillo MD GI PROCEDURE ORD Final Re sult * ANTI HCV (09/19/2020 3:15 PM HULL INSPECTOR) HEPATITIS C ANTIBODY Non-React yvette Non-React yvette 09/19/2020 9:14 PM HULL INSPECTOR [facility] Comment:Antibodies to HCV no t detected; does not exclude the possibility of exposure to HCV. Blood BLOOD SPECIMEN / Unknown Venipuncture / Unknown 09/19/2020 3:15 PM HULL INSPECTOR 09/19/2020 3:21 PM HULL INSPECTOR Andie Holliday MD SEND OUTS Final Resul t [facility] [address] [place] [address], [place] * ANTI HIV 1/2 (09/19/2020 3:15 PM HULL INSPECTOR) HIV-1/HIV-2 ANTIBODY Non-Reacti ve Non-Reacti ve 09/19/2020 9:13 PM HULL INSPECTOR [facility] Comment:HIV-1 p24 and HIV-1/ HIV-2 Ab not detected. Blood BLOOD SPECIMEN / Unknown Venipuncture / Unknown 09/19/2020 3:15 PM HULL INSPECTOR 09/19/2020 3:17 PM HULL INSPECTOR us Kayden Jaramillo MD SEND OUTS Final Res ult [facility] [address] [place] [address], from Last 3 Months or Most Recently Relevant to Health Maintenance Insurance MEDICA CHOICE [facility] [id number] [id number] [employer] [place] [employer] ACCESSABILITY SOLUTION [address] [id number] WORKERS COMP on file [employer] ACCESSABILITY SOLUTION Advance Directives * Full Code (Latest Code Status on File) Date Activated Date Inactivated Comments 04/22/2020 2:09 PM 04/24/2020 3:36 PM Question Answer Comments Code Status Discussion: Discussed * Full Code Date Activated Date Inactivated Comments 04/26/2013 10:14 AM 04/26/2013 7:47 PM * Full Code Date Activated Date Inactivated Comments 04/26/2013 7:14 AM 04/26/2013 10:14 AM Care Teams Massage Operator Relationship Specialty Start Date End Date Andie Holliday MD [address] [place] [address] PCP - General Family Practice 08/13/20
--- OUTSIDE RECORDS SUMMARY | 2025-04-22 15:40 | XMS_ITS | CCD ---
Author Organization Unknown Care Team Providers Care Tandem Operator Name Role Phone Grounds Maintenance Supervisor, [place] Primary Care Provider Unava ilable Unavailable Chronic Care Management Unavaila ble Summary Purpose DataExchange Insurance Providers Payer name Policy type / Coverage type Covered constitution party ID Effective Begin Date Effective End Date [employer] ([facility]) Medicaid [id number] Unknown Unknown Family History Family History data not found Medication Administered No Medication Administered data Reason For Visit No Reason For Visit data
--- OUTSIDE RECORDS SUMMARY | 2025-04-22 15:40 | XMS_ITS | CCD ---
Author Organization Unknown Care Team Providers Care Drafting Technician Name Role Phone Extrusion Bender, [place] Primary Care Provider Unava ilable Unavailable Chronic Care Management Unavaila ble Summary Purpose DataExchange Insurance Providers Payer name Policy type / Coverage type Covered constitution party ID Effective Begin Date Effective End Date [employer] ([facility]) Medicaid [id number] Unknown Unknown Family History Family History data not found Medication Administered No Medication Administered data Reason For Visit No Reason For Visit data
[2025-04-22] MEDS: diazePAM 5 MG/ML inj IV (16:04)
[2025-04-22] MEDS: ONDANSETRON 2 MG/ML inj 4 MG IVP (16:19)
== END 2025-04-22 18:44 | disposition home or self-care (01) ==
PROVIDERS: Emergency Provider Family Medicine; PCP Family Medicine
DX: M54.16 Radiculopathy, lumbar region (principal)
CPT/HCPCS: 72148; 96374; 96375; 99283; 99284; J1171; J2405; J3360

== ENCOUNTER 2025-06-06 16:21 | Observation (INO) | payer OTHER, SELFPAY ==
[2025-06-06] VITALS (18 sets, daily range): BP systolic 140–152; BP diastolic 85–94; PULSE 71–100; RESP 16; TEMP 36.4–36.8; O2SAT 93–99; BMI 18.4
--- OUTSIDE RECORDS SUMMARY | 2025-06-06 16:23 | XMS_ITS | Clinical Summary ---
Author Organization [facility] Address [address] [place] [id number] Care Team Providers Care Leather Repairer Name Role Phone Andie Holliday MD Primary [...] :Encounter for smoking cessation counseling Inhale 1 [place] in both nostrils every hour while awake [...] Active Problems Problem Noted Date Diagnosed Date Coronary artery calcification 03/05/2025 History of pelvic fracture 03/05/2025 HTN (hypertension) 03/05/2025 Coronary artery disease [place]ving [place] coronary artery of [place] heart without angina pectoris 01/25/2025 Overview (01/25/2025): [...] Encounters Date Type Department Care Team Description 04/22/2025 Orders Only [facility] Scanner 1 scan: (1-Ord) IDRIS, LUMBAR SPINE WO CONT, 04/22/2025 03/25/2025 Travel 03/12/2025 Telephone [facility] [address] [place] [address] Andie Holliday MD Blood Pressure 03/06/2025 Telephone [facility] [address] [place] [address] Andie Holliday MD Results from Last 3 Months Immunizations Immunization Administration Dates Next Due COVID-19 vaccine (Adometry By [employer] 30mcg/0.3mL) 12YO+ SAÚL-SUCROSE MELVA MORRISON 02/12/2022,02/11/2022 COVID-19 vaccine (Adometry By [employer]ech 30mcg/0.3mL) MELVA MORRISON 12/23/2020,12/23/2020,12/02/2020 Influenza Virus, Unspecified 05/20/2017 Influenza, IIV3 [...] Date Smoking Tobacco: Some Days Cigarettes 0.6 37.3 Started: 1976; Last attempted to quit: 02/05/2013 [...] on file Legal Sex Female 6:06 AM CARBIDE TOOL [employer] Gender Identity Not on file Sexual Orientation [...] 06/18/20, 05/20/2017, 08/18/2015, Additional history exists Influenza Vaccine (#1) 2025 [...] this topic Medical Devices Implanted Type Area Transitions Rn Care Coordinator Device Identifier Shelf Expiration Date Model / Serial / Lot Guide Joya Pereira 08/15 X 9 - [id number] Implanted:Qty: 1 on 04/26/2013 by John Hauser MD at [facility] R-BIOMET [id number] / / NA Procedures Procedure Name Priority Date/Time Associated Diagnosis Comments SCAN-MRI INTERPRETATION 04/22/2025 12:00 AM CDT LIPID PANEL W REFLEX MEASURED LDL Routine 03/05/2025 2:55 PM CDT CAD in [place] artery CT CHEST SCREENING LOW DOSE WO CONTRAST Routine 01/23/2025 1:10 PM CDT Encounter for screening for lung cancer XR MAMMO BILAT SCREENING Routine 06/18/2022 1:52 PM [employer]OL [employer] Visit for screening mammogram COLONOSCOPY SCREENING Routine 02/15/2022 12:00 AM CDT Crohn's disease without complication, unspecified gastrointestinal tract location (HC) ANTI HIV 1/2 Routine 09/19/2020 3:15 PM [employer]IDE [employer]OL [employer]KER Crohn's disease without complication, unspecified gastrointestinal tract location (HC) Diarrhea, unspecified type ANTI HCV Routine 09/19/2020 3:15 PM [employer]IDE TOOL MAKER Need for hepatitis C screening test from Last 3 Months or Most Recently Relevant to Health Maintenance Results * SCAN-MRI INTERPRETATION (04/22/2025 12:00 AM CDT) Anatomical Region Laterality Modality Other us Scanner OTHER Final Result * (ABNORMAL) LIPID PANEL W REFLEX MEASURED LDL (03/05/2025 2:55 PM CDT) CHOLESTEROL, TOTAL 242(H) <200 mg/dL [facility] HDL CHOLESTEROL 52 > OR = 50 mg/dL [facility] TRIGLYCERIDES 173(H) <150 mg/dL [facility] LDL-CHOLESTEROL 157(H) mg/dL (calc) [facility] Comment: Reference range: <100 Desirable range <100 mg/dL for primary prevention; <70 mg/dL for patients with CHD or diabetic patients with > or = 2 CHD risk factors. LDL-C is now calculated using the Kayden-Short calculation, which is a validated novel method providing better accuracy than the Friedewald equation in the estimation of LDL-C. Kayden SS et al. FIONA. 2013;310(19): 5713-3352 (http://education.[employer]/faq/AFA927) CHOL/HDLC RATIO 4.7 <5.0 (calc) [facility] NON HDL CHOLESTEROL 190(H) <130 mg/dL (calc) [facility] Comment: For patients with diabetes plus 1 major ASCVD risk factor, treating to a non-HDL-C goal of <100 mg/dL (LDL-C of <70 mg/dL) is considered a therapeutic option. Blood BLOOD SPECIMEN / Unknown 03/05/2025 2:55 PM CDT 03/05/2025 2:55 PM CDT us Andie Holliday MD CHEMISTRY Final Resul t [facility] [address] [place] [address], [place] [address] [place] [address] * CT CHEST SCREENING LOW DOSE WO CONTRAST [[id number]] -- Criteria: must meet ALL: Age 50-80, [...] XR MAMMO BILAT SCREENING (06/18/2022 1:52 PM CARBIDE TOOL MAKER) Anatomical Region Laterality Modality BREASTS, Breast Left, Breast Right Bilateral Mammography Impressions 06/21/2022 4:14 PM CAR[employer]IDE TOOL [employer]KER There is no radiographic evidence for malignancy. Recommend annual mammograms. MAMMOGRAM ASSESSMENT: ACR 1 Negative PATIENTS: You will also receive a letter with your examination results in an easy to read format. If you have questions about your results, please contact your referring provider. Narrative 06/21/2022 4:14 PM CARBIDE TOOL MAKER For Patients: As a result of the Cures Act, medical imaging exams and procedure reports are released immediately into your electronic medical record. You may view this report before your referring provider. If you have questions, please contact your health care provider. XR MAMMO BILAT SCREENING [[id number]] CLINICAL HISTORY: This is an asymptomatic 61 y.o. patient. INDICATION FOR EXAM: Mammogram Screening. TECHNIQUE: CC & MLO views were obtained. This study was evaluated with the assistance of Computer-Aided Detection. COMPARISON FILM: Yes 05/20/17 [facility] FINDINGS: The breasts are heterogeneously dense, which may obscure small masses. There are no dominant masses, suspicious micro calcifications or areas of architectural distortion. Andie Holliday MD MAMMO Final Resul t * COLONOSCOPY SCREENING (02/15/2022 12:00 AM CDT) Kayden Jaramillo MD GI PROCEDURE ORD Final Re sult * ANTI HCV (09/19/2020 3:15 PM CARBIDE TOOL MAKER) HEPATITIS C ANTIBODY Non-React yvette Non-React yvette 09/19/2020 9:14 PM CARBIDE TOOL MAKER [facility] Comment:Antibodies to HCV no t detected; does not exclude the possibility of exposure to HCV. Blood BLOOD SPECIMEN / Unknown Venipuncture / Unknown 09/19/2020 3:15 PM CARBIDE TOOL MAKER 09/19/2020 3:21 PM CARBIDE TOOL MAKER Result [facility] Andie Holliday MD SEND OUTS Final Resul t Performing Organization Address City/[facility]/ZIP Co de Phone Number [facility] [address] [place] [address], [place] * ANTI HIV 1/2 (09/19/2020 3:15 PM CARBIDE TOOL MAKER) Pathologist [facility] HIV-1/HIV-2 ANTIBODY Non-Reacti ve Non-Reacti ve 09/19/2020 9:13 PM CARBIDE TOOL MAKER [facility] Comment:HIV-1 p24 and HIV-1/ HIV-2 Ab not detected. Blood BLOOD SPECIMEN / Unknown Venipuncture / Unknown 09/19/2020 3:15 PM CARBIDE TOOL MAKER 09/19/2020 3:17 PM CARBIDE TOOL MAKER Result [facility] Kayden Jaramillo MD SEND OUTS Final Res ult [facility] [address] [place] [address], [place] from Last 3 Months or Most Recently Relevant to Health Maintenance Insurance MEDICA CHOICE [facility] [id number] [place] [address] BLUE [facility] [employer] ACCESSABILITY SOLUTION [id number] [place] [id number] WORKERS COMP on file [employer] ACCESSABILITY SOLUTION [...] 7:14 AM 04/26/2013 10:14 AM Care Teams Leather Repairer Relationship Specialty Start Date End Date Andie Holliday MD [address] [place] [address] PCP - General Family Practice 08/13/20
--- NOTE | 2025-06-06 16:41 | CRLHL7_ITS ---
For Patients: As a result of the Century Cures Act, medical imaging exams and procedure reports are released immediately into your electronic medical record. You may view this report before your referring provider. If you have questions, please contact your health care provider. INDICATION: Slurring, facial droop. TECHNIQUE: Noncontrast CT of the head with multiplanar reconstruction utilizing bone and soft tissue algorithms. COMPARISON: CT head dated 06/01/2023. FINDINGS: No acute intracranial hemorrhage. Stable chronic lacunar type infarcts within the left basal ganglia and right cerebellum. Slight increase in scattered hypoattenuation within the supratentorial white matter. The ventricles are unchanged in size. There is similar mild diffuse parenchymal volume loss. No abnormal extra-axial fluid collection is identified. Intact calvarium and skull base. Symmetric globes. The imaged paranasal sinuses and mastoid air cells are clear. IMPRESSION: 1. No acute intracranial hemorrhage or mass effect. 2. Stable chronic lacunar-type infarcts within the left basal ganglia and right cerebellum. 3. Slight increase in scattered hypoattenuation within the supratentorial white matter, nonspecific, but commonly reflecting chronic small vessel ischemic changes. Please note that all CT scans at this facility use dose modulation, iterative reconstruction, and/or weight-based dosing when appropriate to reduce radiation dose to as low as reasonably achievable. Dictated by Manuel Trinidad MD @ 06/06/2025 5:44:29 PM (Electronically Signed)
--- NOTE | 2025-06-06 16:49 | ED_ITS ---
HPI - General Adult General Date Seen: 06/06/25 Chief complaint: Neuro Symptoms/Altered Deficit Stated complaint: had stroke while sleeping Time Seen by Provider: 06/06/25 16:44 History of Present Illness HPI narrative: 64 yo F who has a history of tobacco use, previous pelvic fracture, COPD, alcohol use, psoriasis, I history of ?cerebrovascular small-vessel disease?, Crohn's disease, hypothyroidism, hyperlipidemia Per records through [facility] link she was hospitalized [facility] in April 2020. She had an acute lacunar infarct involving the left posterior putamen and periventricular white matter. Also a small chronic cortical infarct in left frontal operculum. Small chronic infarct in the right cerebellar hemisphere. She had presented with right hemiplegia and right facial droop and was nearly about to receive tPA when her symptoms resolved and improved almost completely back to baseline. Thought to be due to small-vessel disease. She was given aspirin and told to continue on continuous aspirin 81 mg daily. Also Plavix for 30 days. Started on atorvastatin. Patient reports that she has been doing well not having any stroke symptoms since then. She has been struggling a lot with right leg pain and low back pain apparently related to lumbar disc for the past couple of months. She was healthy and well last Tuesday when she went to bed but when she woke up morning she was noticing slurred speech, drooling from the left side of her face, left facial droop, as well as left upper extremity weakness. At that time she suspected she had had another stroke. However since it happened while she was sleeping she did not think she was a candidate for clot busters or any medical treatment so did not come to the doctor. Symptoms have been ongoing since then. She does feel like her left arm is getting little bit better as the days go by. She actually came to the ER today on the advice of her home health assistant. She was apparently having a phone conversation with her lower (about another matter) today and her home health assistant advised her that she should go see the doctor to find out what can be done. She came in. She has left facial droop, slurred speech, she feels like her left arm is still a little bit weaker than the right. No headache. No double vision or blurry vision. No nausea vomiting. No known head injury. No fever. No neck pain. No chest pain. No history of AFib. No swelling in her legs. Current med list from [facility] medical record includes albuterol, baby aspirin, lisinopril, rosuvastatin, nicotine nasal spray Related Data Home Medications ?Medication ?Instructions ?Recorded ?Confirmed aspirin 81 mg tablet,delayed 81 mg PO DAILY 06/27/22 1 release lisinopril 10 mg tablet 10 mg PO DAILY 06/27/2205/10 rosuvastatin 20 mg tablet 20 mg PO QPM 06/06/25 Allergies Allergy/AdvReac Type Severity Reaction Status Date / Time infliximab (From Remicade) Allergy Severe Anaphylaxis Verified 03/06/24 14:47 codeine Allergy Intermediate GI upset Verified 03/06/24 14:47 amoxicillin (From Augmentin) Allergy Rash Verified 03/06/24 14:47 clavulanic acid (From Allergy Rash Verified 03/06/24 14:47 Augmentin) pollen extracts AdvReac Intermediate itching Verified 03/06/24 14:47 iohexol AdvReac Mild Verified 03/06/24 14:47 PFSH PFSH Medical History (Updated 06/06/25 @ 21:04 by Perico Villareal MD) Cerebrovascular small vessel disease ?I67.9 - Cerebrovascular disease, unspecified (ICD-10) Vasomotor symptoms due to menopause (03/02/17) ?N95.1 - Menopausal and female climacteric states (ICD-10) Tobacco abuse ?Z72.0 - Tobacco use (ICD-10) Subcortical infarction ?I63.9 - Cerebral infarction, unspecified (ICD-10) Psoriasis (11/16/17) ?L40.9 - Psoriasis, unspecified (ICD-10) Lung nodule ?R91.1 - Solitary pulmonary nodule (ICD-10) Hypothyroidism (acquired) (11/18/17) ?E03.9 - Hypothyroidism, unspecified (ICD-10) Hyperlipidemia LDL goal <70 ?E78.5 - Hyperlipidemia, unspecified (ICD-10) History of colon polyps (02/17/22) ?Z86.010 - Personal history of colonic polyps (ICD-10) Crohn's disease of both small and large intestine with rectal bleeding (03/02/17) ?K50.811 - Crohn's disease of both small and large intestine with rectal bleeding (ICD-10) Chronic obstructive pulmonary disease (12/30/20) ?J44.9 - Chronic obstructive pulmonary disease, unspecified (ICD-10) Chronic alcohol abuse (09/02/10) ?F10.10 - Alcohol abuse, uncomplicated (ICD-10) Encounter related to worker's compensation claim ?Z02.6 - Encounter for examination for insurance purposes (ICD-10) Fracture of fourth metacarpal bone of right hand ?S62.304A - Unspecified fracture of fourth metacarpal bone, right hand, initial encounter for closed fracture (ICD-10) Acute hypoxic respiratory failure ?J96.01 - Acute respiratory failure with hypoxia (ICD-10) CVA (cerebral vascular accident) ?I63.9 - Cerebral infarction, unspecified (ICD-10) Transient ischemic attack ?G45.9 - Transient cerebral ischemic attack, unspecified (ICD-10) Osteoarthritis of cervical spine ?M47.812 - Spondylosis without myelopathy or radiculopathy, cervical region (ICD-10) Cervicogenic headache ?G44.86 - Cervicogenic headache (ICD-10) Abrasion ?T14.8XXA - Other injury of unspecified body region, initial encounter (ICD- 10) Cerebrovascular small vessel disease ?I67.9 - Cerebrovascular disease, unspecified (ICD-10) Acute Crohn's disease ?K50.90 - Crohn's disease, unspecified, without complications (ICD-10) Hypothyroidism ?E03.9 - Hypothyroidism, unspecified (ICD-10) Subcapital fracture of neck of right femur (07/2008) ?S72.011A - Unspecified intracapsular fracture of right femur, initial encounter for closed fracture (ICD-10) Smoker ?F17.200 - Nicotine dependence, unspecified, uncomplicated (ICD-10) Wheezing ?R06.2 - Wheezing (ICD-10) Surgical History History of appendectomy ?Z90.49 - Acquired absence of other specified parts of digestive tract (ICD- 10) History of hysterectomy ?Z90.710 - Acquired absence of both cervix and uterus (ICD-10) History of open reduction and internal fixation (ORIF) procedure (07/22/08) ?Z98.890 - Other specified postprocedural states (ICD-10) Social History What is your current living situation?: I presently have a place to live Problems where you live: no known problems Problems where you live details: n/a In the past 12 months, utilities in danger of being shut off: no In past 12 months, lack of transportation kept you from medical appts, meetings, work, or getting things needed for daily living: yes In the past 12 mos, have been you worried that your food would run out before you had money to buy more?: sometimes true In the past 12 mos, the food you bought just didn't last and you didn't have money to buy more?: sometimes true Highest level of school completed/degree received: high school graduate Smoking Status: Current every day smoker What tobacco products do you use: cigarettes Do you use any of these nicotine containing products: None Second hand tobacco smoke exposure: No How often do you have a drink containing alcohol: never How often do you have six or more drinks on one occasion: Never AUDIT-C Alcohol total score: 0 Non-prescribed substance use: denies use Caffeine: Yes (coffee and some soda) How often does anyone, including family, friends and others, physically hurt you : never How often does anyone, including family, friends and others, insult or talk down to you: never How often does anyone, including family, friends and others, threaten you with harm: never How often does anyone, including family, friends and others, scream or curse at you: never Health Related Social Needs: food insecurity (Z59.41) and transportation insecurity (Z59.82) Exam Narrative: Exam Narrative: Constitutional: Appears well-developed and well-nourished. Alert. Conversant. Non toxic. HENT: Head: Atraumatic. Nose: Nose normal. Mouth/Throat: Oral mucosa is clear and moist. no trismus. Pharynx normal. Tonsils symmetric. No tonsillar enlargement, erythema, or exudate. Eyes: Conjunctivae normal. EOM normal. Pupils equal, round, and reactive to light. No scleral icterus. Neck: Normal range of motion. Neck supple. No tracheal deviation present. Cardiovascular: Normal rate, regular rhythm. No gallop. No friction rub. No murmur heard. Symmetric radial artery pulses Pulmonary/Chest: Effort normal. No stridor. No respiratory distress. No wheezes. No rales. No rhonchi . No tenderness. Abdominal: Soft. Bowel sounds normal. No distension. No mass. No tenderness. No rebound. No guarding. Musculoskeletal: RUE: Normal range of motion. No tenderness. No deformity LUE: Normal range of motion. No tenderness. No deformity RLE: Normal range of motion. No edema. No tenderness. No deformity LLE: Normal range of motion. No edema. No tenderness. No deformity Lymph: No cervical adenopathy. Neurological: Mental status normal. Attention normal. Alert and oriented x3. GCS 15. Memory normal. Speech fluent. Cognition normal. Cranial Nerves intact II-XII except for left facial droop. I did not formally test gag or visual acuity. EOMI. Palate elevates symmetrically but tongue does deviate slightly to the left. Strength: 5/5 trapezius on the right and left 5/5 deltoid on the right and left 5/5 biceps on the right and left 5/5 triceps on the right and left 5/5 hemmer automatic on the right and left 5/5 thumb opposition on the right and le ft 5/5 finger abduction on the right and le ft 5/5 hip flexors (L3) on the right and le ft 5/5 quadriceps (L4) on the right and lef t 5/5 tibialis anterior on the right and l eft 5/5 EHL (L5) on the right and left 5/5 gastrocnemius (S1) on the right and left 5/5 hamstring on the right and left Sensation intact to light touch in both upper extremities (C4-T1) Sensation intact to light touch in Both lower extremities (L4-S1). Finger to nose and coordination normal. Gait normal. Skin: Skin is warm and dry. No rash noted. No pallor. Normal capillary refill. Psychiatric: Normal mood. Normal affect. Const: Vital Signs, click to edit/add: Vital Signs - 24 hr 06/06/25 16:35 06/06/25 17:42 06/06/25 17:45 Temperature 98.2 F Pulse Rate 80 73 Pulse Rate [Pulse Oximeter] 100 Respiratory Rate 16 Blood Pressure Blood Pressure [Ri ght Upper Arm] 143/91 H Pulse Oximetry 96 94 94 Oxygen Delivery Me thod Room Air 06/06/25 17:55 06/06/25 18:00 06/06/25 18:01 Temperature Pulse Rate 77 73 74 Pulse Rate [Pulse Oximeter] Respiratory Rate Blood Pressure 152/94 H 140/92 H Blood Pressure [Ri ght Upper Arm] Pulse Oximetry 94 93 94 Oxygen Delivery Me thod 06/06/25 18:27 06/06/25 18:29 06/06/25 18:30 Temperature Pulse Rate 75 76 71 Pulse Rate [Pulse Oximeter] Respiratory Rate Blood Pressure Blood Pressure [Ri ght Upper Arm] Pulse Oximetry 98 96 97 Oxygen Delivery Me thod 06/06/25 18:33 06/06/25 18:34 06/06/25 18:45 Temperature Pulse Rate 77 76 73 Pulse Rate [Pulse Oximeter] Respiratory Rate Blood Pressure Blood Pressure [Ri ght Upper Arm] Pulse Oximetry 96 95 94 Oxygen Delivery Me thod 06/06/25 18:48 06/06/25 19:00 Temperature Pulse Rate 74 Pulse Rate [Pulse Oximeter] Respiratory Rate Blood Pressure Blood Pressure [Ri ght Upper Arm] Pulse Oximetry 95 95 Oxygen Delivery Me thod Course Vital Signs Vital signs: Initial Vital Signs Temperature 98.2 F 06/06/25 16:35 Temperature Source Temporal Artery Scan 06/06/25 16:35 Pulse Rate 100 06/06/25 16:35 Respiratory Rate 16 06/06/25 16:35 Blood Pressure 143/91 H 06/06/25 16:35 Blood Pressure Mean 108 H 06/06/25 16:35 Blood Pressure Position Sitting 06/06/25 16:35 Pulse Oximetry 96 06/06/25 16:35 Oxygen Delivery Method Room Air 06/06/25 16:35 Vital Signs Temperature 98.2 F 06/06/25 16:35 Pulse Rate 100 06/06/25 16:35 Respiratory Rate 16 06/06/25 16:35 Blood Pressure 143/91 H 06/06/25 16:35 Pulse Oximetry 96 06/06/25 16:35 Oxygen Delivery Method Room Air 06/06/25 16:35 Temperature 97.8 F 06/07/25 00:25 Pulse Rate 76 06/07/25 00:25 Respiratory Rate 16 06/07/25 00:25 Blood Pressure 102/68 06/07/25 00:25 Pulse Oximetry 96 06/07/25 00:25 Oxygen Delivery Method Room Air 06/07/25 00:25 Medications Administered Medications: Generic Name Dose Route Start Last Admin Trade Name Christopher PRN Reason Stop Dose Admin Acetaminophen 650 mg 06/06/25 21:00 06/06/25 21:39 Acetaminophen 325 Mg Tablet PO 650 mg QID RAMONA Administration Aspirin 325 mg 06/07/25 09:00 06/06/25 19:30 Aspirin Ec 325 Mg Tablet PO 325 mg DAILY RAMONA Administration Sodium Chloride 5 ml 06/06/25 21:00 06/06/25 21:39 Sodium Chloride 0.9 % (Flush) 10 Ml Syringe IVF 5 ml BID RAMONA Administration Discontinued Medications Generic Name Dose Route Start Last Admin Trade Name Freq PRN Reason Stop Dose Admin Clopidogrel Bisulfate 300 mg 06/06/25 19:02 06/06/25 19:30 Clopidogrel 300 Mg Tablet PO 06/06/25 19:03 300 mg ONCE ONE Administration Medical Decision Making MDM Narrative Medical decision making narrative: 64-year-old female presenting to the ER today with left facial droop, slurred speech, and left upper extremity weakness. She has a history of stroke that occurred about 5 years ago which fortunately largely resolved prior to administration of tPA. She is managed long-term on baby aspirin and statins. Her current symptoms started about 1 week ago, last when she woke up in the morning. She finally came to the ER today, on the advice of her lower because of her persistently slurred speech On my neuro exam she does have a left facial droop and tongue deviates to the left with mildly slurred speech. Although she is feeling subjectively weak in her left arm I do not see any drift or have any other focal weakness on my exam at this time. Initial phase of our stroke workup her so far reassuring. Head CT scan is negative for any intracranial hemorrhage or signs of hemorrhagic conversion or other signs of cerebral edema. CT angiogram of her head and neck do show moderate stenosis of the M2 branch of her right MCA which could be the culprit vessel. EKG shows sinus rhythm. In discussion with stroke neurology, Dr. Martin, plan is to admit for stroke workup, cardiac monitoring, echo, as well as formal MRI. MRI is not available here this evening. Neurology recommends increasing aspirin up to 325 mg daily and also initial Plavix load of 300 mg tonight, thereafter, 75 mg daily. Discussed with hospitalist, Dr. Villareal who accepts for admission. Other workup looks reassuring. Labs normal. EKG shows sinus rhythm. Lab Data Labs: Lab Results 06/06/25 Range/Units 17:25 WBC 8.67 (4.50-11.00) K/uL RBC 4.43 (4.00-5.20) m/uL Hgb 12.9 (12.0-16.0) gm/dL Hct 39.5 (33.0-51.0) % MCV 89 (80-100) fL MCH 29 (26-34) pg MCHC 33 (32-36) gm/dL RDW Coeff of David 13.9 (11.5-15.5) % Plt Count 232 (140-440) K/uL Neut % (Auto) 65.4 (42.0-72.0) % Lymph % (Auto) 22.6 (20-44) % Mccracken % (Auto) 10.4 (0.0-11.0) % Eos % (Auto) 1.0 (0.0-7.0) % Baso % (Auto) 0.5 (0.0-3.0) % Neut # (Auto) 5.67 (1.7-7.0) K/uL Lymph # (Auto) 1.96 (0.90-2.90) K/uL Mccracken # (Auto) 0.90 (0.00-0.90) K/UL Eos # (Auto) 0.09 (0.00-0.50) K/uL Baso # (Auto) 0.04 (0.00-0.30) K/uL Abs Immat Gran (auto) 0.01 (0.00-0.30) K/uL Imm/Tot Granulo (auto) 0.1 % INR 0.98 (0.91-1.10) APTT 32 (23-33) Seconds Sodium 139 (135-149) mmol/L Potassium 3.9 (3.6-5.1) mmol/L Chloride 101 (96-114) mmol/L Carbon Dioxide 30 (20-32) mmol/L Anion Gap 8 (7-15) mEq/L BUN 14 (7-30) mg/dL Creatinine 0.6 (0.5-1.5) mg/dL Estimated Creat Clear 47.01 Estimated GFR 101 ml/min Glucose 104 (60-115) mg/dL Calcium 9.4 (8.4-10.6) mg/dL Troponin I < 0.01 (0.01-0.04) ng/mL Ethyl Alcohol < 0.01 (0.01-0.03) % Imaging Data CT angiogram head and neck: Attestation: I have reviewed the pertinent imaging results. Radiologist's impression: Preliminary Report: No large vessel occlusion. Mild stenosis of the right M2 superior division (see series 6 image 238). CT scan - head: Attestation: I have reviewed the pertinent imaging results. My impression: No acute bleed Radiologist's impression: IMPRESSION: 1. No acute intracranial hemorrhage or mass effect. 2. Stable chronic lacunar-type infarcts within the left basal ganglia and right cerebellum. 3. Slight increase in scattered hypoattenuation within the supratentorial white matter, nonspecific, but commonly reflecting chronic small vessel ischemic changes ECG Data Attestation: I personally reviewed and interpreted this ECG as follows: Interpretation: Normal sinus rhythm Rate 76 CT interval about 120-150 Normal QRS axis. Very thin Q-waves in leads V1 and V2. No ST segment elevation or depression. Nonspecific T-wave changes. QT 370, QTC 416 Discharge Plan Discharge Clinical Impression: Stroke Patient Disposition: Admitted As Observation
--- OUTSIDE RECORDS SUMMARY | 2025-06-06 17:23 | XMS_ITS | CCD ---
Author Organization Unknown Care Team Providers Care Photographer Apprentice Name Role Phone Ward Aide, [place] Primary Care Provider Unava ilable Unavailable Chronic Care Management Unavaila ble Summary Purpose DataExchange Insurance Providers Payer name Policy type / Coverage type Covered democrat ID Effective Begin Date Effective End Date [employer] ([facility]) Medicaid [id number] Unknown Unknown Family History Family History data not found Medication Administered No Medication Administered data Medical Equipment No Medical Equipment data Assessments No Assessment data Reason For Visit No Reason For Visit data Review of Systems No Review of Systems data Physical Exam No Physical Exam data History of Present Illness No History of Present Illness data Advance Directives No Advance Directive data
--- NOTE | 2025-06-06 17:26 | CRLHL7_ITS ---
For Patients: As a result of the Century Cures Act, medical imaging exams and procedure reports are released immediately into your electronic medical record. You may view this report before your referring provider. If you have questions, please contact your health care provider. INDICATION: Acute stroke, left facial droop. TECHNIQUE: CTA head using intravenous contrast with bolus tracking, 3D angiographic rendering using maximum intensity projection (MIP) and images permanently archived. CTA neck using intravenous contrast with bolus tracking, 3D angiographic rendering using maximum intensity projection (MIP) and images permanently archived. FINDINGS: CTA head: There is scattered intracranial atherosclerotic disease. There is normal opacification of the intracranial vasculature. There is no large vessel occlusion or significant intracranial stenosis. No aneurysm is identified. CTA neck: There is carotid atherosclerosis bilaterally. There is atherosclerotic plaque in the proximal right ICA resulting in a moderate stenosis, 50% by NASCET. There is atherosclerotic plaque in the proximal left ICA resulting in a mild stenosis, less than 50% by NASCET. There is no significant vertebral artery stenosis or dissection. Degenerative changes are noted in the cervical spine. Emphysema is present in the visualized lungs. IMPRESSION: No acute intracranial abnormality at CTA. Moderate proximal right ICA stenosis, 50% by NASCET. Mild proximal left ICA stenosis, less than 50% by NASCET. Please note that all CT scans at this facility use dose modulation, iterative reconstruction, and/or weight-based dosing when appropriate to reduce radiation dose to as low as reasonably achievable. Dictated by Herberth Bhat MD @ 06/06/2025 8:11:54 PM (Electronically Signed)
[2025-06-06 17:41] LABS: Hematocrit* 39.5 % (33.0-51.0); Hemoglobin* 12.9 gm/dL (12.0-16.0); Immature Granulocytes Abs Auto 0.01 K/uL (0.00-0.30); Immature Granulocytes Pct Auto 0.1 %; Lymphocytes Absolute Auto 1.96 K/uL (0.90-2.90); Mean Corpuscular HGB Conc 33 gm/dL (32-36); Mean Corpuscular Hemoglobin 29 pg (26-34); Mean Corpuscular Volume 89 fL (80-100); RDW Coefficient of Variation % 13.9 % (11.5-15.5); Red Blood Count* 4.43 m/uL (4.00-5.20); White Blood Count* 8.67 K/uL (4.50-11.00)
[2025-06-06 17:43] LABS: Slide Review Reflex No
[2025-06-06 17:58] LABS: Chloride* 101 mmol/L (96-114); Potassium* 3.9 mmol/L (3.6-5.1)
[2025-06-06 18:01] LABS: Blood Urea Nitrogen* 14 mg/dL (7-30); Calcium* 9.4 mg/dL (8.4-10.6); Carbon Dioxide* 30 mmol/L (20-32); Creatinine* 0.6 mg/dL (0.5-1.5); Est. Creatinine Clearance* 47.01; Estimated Glomerular Filt Rate 101 ml/min; Glucose* 104 mg/dL (60-115)
[2025-06-06 18:10] LABS: Ethanol* < 0.01 % (0.01-0.03)
[2025-06-06 18:21] LABS: Anion Gap 8 mEq/L (7-15); Sodium* 139 mmol/L (135-149)
[2025-06-06 18:30] LABS: INR 0.98 (0.91-1.10); Prothrombin Time 13.8 Seconds
[2025-06-06] MEDS: CLOPIDOGREL 300 MG TABLET PO (19:30)
[2025-06-06] MEDS: ASPIRIN EC 325 MG TABLET PO (19:30)
--- NOTE | 2025-06-06 20:26 | PM.IMHP1 ---
Assessment and Plan Assessment and plan (1) Stroke: Problem comment: -emergency department physician discussed with neurologist, Dr. Martin, who recommends increasing aspirin dose from 81 mg daily to 325 mg daily, give a single dose of clopidogrel 300 mg now and then 75 mg once daily starting tomorrow, admission for observation, check a transthoracic echocardiogram, check an MR scan of the brain, assess lipid profile, consult with Physical therapy, Occupational therapy, speech therapy. Status: Acute (2) Cerebral atherosclerosis: Status: Acute (3) Cerebrovascular small vessel disease: Status: Acute (4) Essential hypertension: Problem comment: -continue lisinopril as presently on and monitor blood pressures Status: Acute (5) Hyperlipidemia: Problem comment: -continue current statin therapy and check lipid panel in the morning Status: Acute (6) Tobacco use disorder: Problem comment: -patient declines nicotine patch on admission Status: Acute (7) Chronic obstructive pulmonary disease: Status: Acute Plan 1. Reviewed impression, plans, recommendations with patient 2. Answered her questions 3. Patient agreeable with above stated plans and recommendations Total Time Spent Total Time Spent: 70 minutes Hospitalist- H&P: HPI History of Present Illness Date Seen: 06/06/25 Chief complaint: 1 week ago had stroke while sleeping Narrative: Allison Resendez is a 64 year old woman who was in her usual state of health until 1 week ago Tuesday when she went to bed. When she woke up on morning she noticed she had left-sided facial droop, left-sided facial weakness, drooling on the left side of her face, slurred speech, left upper extremity and left lower extremity weakness. She concluded she had another stroke. She concluded that since she had her stroke while she was asleep that she was not a candidate for clot busting therapy and so she opted not to seek medical attention. Noteworthy is that she has previously had strokes. First stroke she was aware of occurred in April 2020. Imaging at that time demonstrated an acute lacunar infarction involving the left posterior putamen and periventricular white matter. Additionally it demonstrated small chronic cortical infarct in the left frontal operculum plus a small chronic infarct in the right cerebellum. Although her symptoms have persisted since, she believes her left arm is slightly improved compared to previously. When eating and drinking she needs to take her time so that the food or liquid does not drool out of her mouth. Her son who usually lives in the [facility] has been staying with her since to help her in her home. She was consulting with her kiln door builder about some matter today via the telephone. Her kiln door builder sense that her speech was not per usual. After asking her some questions her kiln door builder recommended that she seek medical attention promptly, which is why she presented to our emergency department today. No recent travel, trauma, injury, illness, blood loss. She tells me she takes her medications as prescribed. Additionally she smokes marijuana 1 or 2 times daily to treat her ?Crohn's?. Denies alcohol use. 1/2 pack of cigarettes now last her about 3 days, whereas previously she smoked a lot more. She has been intentionally trying to cut back on her smoking. Denies the use of any other street or recreational drugs. Review of Systems Status of ROS: Reports: 10 or more systems reviewed and unremarkable except as noted in History and below Narrative: Lives alone in her apartment. 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 Designates her friend, Heber Gomez, as her spokesperson to make healthcare decisions on her behalf if she is suddenly not able to speak on her own behalf. Heber's telephone number is [phone]. Patient requests DNR DNI resuscitation status in the event of cardiopulmonary demise. Does not have any pets in her home. Does have 3 plants in her home that she takes good care of. Medical Decision Making Medical Decision Making Code Status: DNR DNI resuscitation status Has patient completed a Health Care Directive: No During This Stay, Who Would You Like To Make Decisions For You In The Event You Are Unable To Make Them For Yourself?: Heber tijerina, more than just a friend, . [facility] Medical History (Updated 06/06/25 @ 21:04 by Perico Villareal MD) Cerebrovascular small vessel disease ?I67.9 - Cerebrovascular disease, unspecified (ICD-10) Vasomotor symptoms due to menopause (03/02/17) ?N95.1 - Menopausal and female climacteric states (ICD-10) Tobacco abuse ?Z72.0 - Tobacco use (ICD-10) Subcortical infarction ?I63.9 - Cerebral infarction, unspecified (ICD-10) Psoriasis (11/16/17) ?L40.9 - Psoriasis, unspecified (ICD-10) Lung nodule ?R91.1 - Solitary pulmonary nodule (ICD-10) Hypothyroidism (acquired) (11/18/17) ?E03.9 - Hypothyroidism, unspecified (ICD-10) Hyperlipidemia LDL goal <70 ?E78.5 - Hyperlipidemia, unspecified (ICD-10) History of colon polyps (02/17/22) ?Z86.010 - Personal history of colonic polyps (ICD-10) Crohn's disease of both small and large intestine with rectal bleeding (03/02/17) ?K50.811 - Crohn's disease of both small and large intestine with rectal bleeding (ICD-10) Chronic obstructive pulmonary disease (12/30/20) ?J44.9 - Chronic obstructive pulmonary disease, unspecified (ICD-10) Chronic alcohol abuse (09/02/10) ?F10.10 - Alcohol abuse, uncomplicated (ICD-10) Encounter related to worker's compensation claim ?Z02.6 - Encounter for examination for insurance purposes (ICD-10) Fracture of fourth metacarpal bone of right hand ?S62.304A - Unspecified fracture of fourth metacarpal bone, right hand, initial encounter for closed fracture (ICD-10) Acute hypoxic respiratory failure ?J96.01 - Acute respiratory failure with hypoxia (ICD-10) CVA (cerebral vascular accident) ?I63.9 - Cerebral infarction, unspecified (ICD-10) Transient ischemic attack ?G45.9 - Transient cerebral ischemic attack, unspecified (ICD-10) Osteoarthritis of cervical spine ?M47.812 - Spondylosis without myelopathy or radiculopathy, cervical region (ICD-10) Cervicogenic headache ?G44.86 - Cervicogenic headache (ICD-10) Abrasion ?T14.8XXA - Other injury of unspecified body region, initial encounter (ICD-10) Cerebrovascular small vessel disease ?I67.9 - Cerebrovascular disease, unspecified (ICD-10) Acute Crohn's disease ?K50.90 - Crohn's disease, unspecified, without complications (ICD-10) Hypothyroidism ?E03.9 - Hypothyroidism, unspecified (ICD-10) Subcapital fracture of neck of right femur (07/2008) ?S72.011A - Unspecified intracapsular fracture of right femur, initial encounter for closed fracture (ICD-10) Smoker ?F17.200 - Nicotine dependence, unspecified, uncomplicated (ICD-10) Wheezing ?R06.2 - Wheezing (ICD-10) Surgical History History of appendectomy ?Z90.49 - Acquired absence of other specified parts of digestive tract (ICD-10) History of hysterectomy ?Z90.710 - Acquired absence of both cervix and uterus (ICD-10) History of open reduction and internal fixation (ORIF) procedure (07/22/08) ?Z98.890 - Other specified postprocedural states (ICD-10) Social History What is your current living situation?: I presently have a place to live Problems where you live: no known problems Problems where you live details: n/a In the past 12 months, utilities in danger of being shut off: no In past 12 months, lack of transportation kept you from medical appts, meetings, work, or getting things needed for daily living: yes In the past 12 mos, have been you worried that your food would run out before you had money to buy more?: sometimes true In the past 12 mos, the food you bought just didn't last and you didn't have money to buy more?: sometimes true Highest level of school completed/degree received: high school graduate Smoking Status: Current every day smoker What tobacco products do you use: cigarettes Do you use any of these nicotine containing products: None Second hand tobacco smoke exposure: No How often do you have a drink containing alcohol: never How often do you have six or more drinks on one occasion: Never AUDIT-C Alcohol total score: 0 Non-prescribed substance use: marijuana (any form) Caffeine: Yes (coffee and some soda) How often does anyone, including family, friends and others, physically hurt you: never How often does anyone, including family, friends and others, insult or talk down to you: never How often does anyone, including family, friends and others, threaten you with harm: never How often does anyone, including family, friends and others, scream or curse at you: never Health Related Social Needs: food insecurity (Z59.41) and transportation insecurity (Z59.82) Meds Home Medications and Allergies Home Medications ?Medication ?Instructions ?Recorded ?Confirmed ?Type aspirin 81 mg tablet,delayed 81 mg PO DAILY 06/27/22 06/06/25 History release lisinopril 10 mg tablet 10 mg PO DAILY 06/27/22 06/06/25 History rosuvastatin 20 mg tablet 20 mg PO QPM 06/06/25 06/06/25 History Allergies Allergy/AdvReac Type Severity Reaction Status Date / Time infliximab (From Remicade) Allergy Severe Anaphylaxis Verified 03/06/24 14:47 codeine Allergy Intermediate GI upset Verified 03/06/24 14:47 amoxicillin (From Augmentin) Allergy Rash Verified 03/06/24 14:47 clavulanic acid (From Allergy Rash Verified 03/06/24 14:47 Augmentin) pollen extracts AdvReac Intermediate itching Verified 03/06/24 14:47 iohexol AdvReac Mild Verified 03/06/24 14:47 Exam Narrative: Exam Narrative: I examined patient in the emergency department. Mild left-sided facial weakness. Gag reflex intact. Other cranial nerves intact. She is not able to lift her right hand with aspirin in the palm of her hand to her lips. She is able to use her left hand to crab picker the aspirin in the palm of her hand and bring it to her lips. She swallows water while sipping from a straw with no drooling. She is unable to hold the cup with her right hand but is able to hold it with her left. Rapid alternating movement of upper extremity is symmetrically mild diminished bilaterally. She is able to lift up her left leg while laying on the exam table but unable to lift up the right leg. Deep tendon reflexes of upper extremities are mildly diminished on the right compared to the left. Deep tendon reflexes of the knee and ankle are preserved bilaterally. Equivocal plantar reflexes bilateral lower extremities. She is able to reposition herself on the exam table, but it takes time. Uses her left hand more so than the right hand to reposition herself. Able to sit up straight. I do not test her ability to transfer or ambulate. Lungs are clear to auscultation. Heart tones with regular rhythm. No murmur, gallop, rub. Abdomen with active bowel sounds, soft, nontender. Skin intact. Const: Vital Signs, click to edit/add: Vital Signs - 24 hr 06/06/25 16:35 06/06/25 17:42 06/06/25 17:45 Temperature 98.2 F Pulse Rate 80 73 Pulse Rate [Pulse Oximeter] 100 Respiratory Rate 16 Blood Pressure Blood Pressure [Ri ght Upper Arm] 143/91 H Pulse Oximetry 96 94 94 Oxygen Delivery Me thod Room Air 06/06/25 17:55 06/06/25 18:00 06/06/25 18:01 Temperature Pulse Rate 77 73 74 Pulse Rate [Pulse Oximeter] Respiratory Rate Blood Pressure 152/94 H 140/92 H Blood Pressure [Ri ght Upper Arm] Pulse Oximetry 94 93 94 Oxygen Delivery Me thod 06/06/25 18:27 06/06/25 18:29 06/06/25 18:30 Temperature Pulse Rate 75 76 71 Pulse Rate [Pulse Oximeter] Respiratory Rate Blood Pressure Blood Pressure [Ri ght Upper Arm] Pulse Oximetry 98 96 97 Oxygen Delivery Me thod 06/06/25 18:33 06/06/25 18:34 06/06/25 18:45 Temperature Pulse Rate 77 76 73 Pulse Rate [Pulse Oximeter] Respiratory Rate Blood Pressure Blood Pressure [Ri ght Upper Arm] Pulse Oximetry 96 95 94 Oxygen Delivery Me thod 06/06/25 18:48 06/06/25 19:00 06/06/25 19:59 Temperature 98.2 F Pulse Rate 74 Pulse Rate [Pulse Oximeter] 89 Respiratory Rate 16 Blood Pressure Blood Pressure [Ri ght Upper Arm] 145/85 H Pulse Oximetry 95 95 95 Oxygen Delivery Me thod Room Air 06/06/25 20:00 Temperature 98.2 F Pulse Rate Pulse Rate [Pulse Oximeter] 89 Respiratory Rate 16 Blood Pressure Blood Pressure [Ri ght Upper Arm] 145/85 H Pulse Oximetry Oxygen Delivery Me thod Hospitalist - H&P: Result Labs Labs: Short CBC 06/06/25 Range/Units 17:25 WBC 8.67 (4.50-11.00) K/uL Hgb 12.9 (12.0-16.0) gm/dL Hct 39.5 (33.0-51.0) % Plt Count 232 (140-440) K/uL BMP 06/06/25 17:25 Sodium 139 Potassium 3.9 Chloride 101 Carbon Dioxide 30 BUN 14 Creatinine 0.6 Glucose 104 Calcium 9.4 Cardiac Enzymes 06/06/25 Range/Units 17:25 Troponin I < 0.01 (0.01-0.04) ng/mL ECG ECG interpretation date: 06/06/25 Interpretation: Normal sinus rhythm. Imaging CT scan - head: Attestation: I have reviewed the pertinent imaging results. Radiologist's impression: No acute intracranial hemorrhage or mass effect. Stable chronic lacunar type infarctions within the left basal ganglia and right cerebellum. Slight increase in scattered hypoattenuation within the supratentorial white matter, commonly reflecting chronic small vessel ischemic changes. CT angiogram of the head: Attestation: I have reviewed the pertinent imaging results. Radiologist's impression: CTA head: There is scattered intracranial atherosclerotic disease. There is normal opacification of the intracranial vasculature. There is no large vessel occlusion or significant intracranial stenosis. No aneurysm is identified. CTA neck: There is carotid atherosclerosis bilaterally. There is atherosclerotic plaque in the proximal right ICA resulting in a moderate stenosis, 50% by NASCET. There is atherosclerotic plaque in the proximal left ICA resulting in a mild stenosis, less than 50% by NASCET. There is no significant vertebral artery stenosis or dissection. Degenerative changes are noted in the cervical spine. Emphysema is present in the visualized lungs.
[2025-06-06] MEDS: ACETAMINOPHEN 325 MG TABLET 650 MG PO (21:39)
[2025-06-06] MEDS: SODIUM CHLORIDE 0.9 % (FLUSH) 10 ML SYRINGE 5 ML IVF (21:39)
[2025-06-07 00:25] VITALS: BP 102/68; PULSE 76; RESP 16; TEMP 36.6; O2SAT 96
[2025-06-07 03:40] VITALS: BP 119/81; PULSE 69; RESP 16; TEMP 36.6; O2SAT 94
[2025-06-07 06:07] LABS: Cholesterol* 220 mg/dL (90-199); HDL Cholesterol* 50 mg/dL (>=50); Triglycerides* 181 mg/dL (40-149)
[2025-06-07 07:00] VITALS: PULSE 74; RESP 16; O2SAT 97
--- NOTE | 2025-06-07 07:01 | PC.NURSE ---
End of shift:?Pt pleasant,?alert?and oriented.?Pt does experience periodic?confusion.?SBA with walker and gait belt.?Denies pain.?Tele reads?NSR.?Pt in bed, appears to be resting call?light?within reach and alarms on.?
[2025-06-07 07:21] LABS: Erythrocyte SedimentationRate* 6 mm/hr (2-20)
[2025-06-07 07:35] VITALS: BP 125/94; PULSE 75; RESP 16; TEMP 36.6; O2SAT 97
--- NOTE | 2025-06-07 08:00 | CRLHL7_ITS ---
For Patients: As a result of the Century Cures Act, medical imaging exams and procedure reports are released immediately into your electronic medical record. You may view this report before your referring provider. If you have questions, please contact your health care provider. Indication: New right hemiparesis Technique: Multiplanar, multisequence MR images of the brain were obtained without the administration of IV contrast. Comparison: CT head June 06, 2025 Findings: On midline sagittal T1 images there are preserved flow voids within the sagittal sinuses. The corpus callosum is preserved in signal and contour. The pituitary gland is unremarkable without evidence of remodeling of the sella turcica. There is no significant cerebellar tonsillar ectopia. On diffusion-weighted sequences, there is demonstration of an evolving subacute lacunar infarct within the right prabhakar radiata white matter with minimal extension to the superolateral basal ganglia. Otherwise, no evidence of additional acute or territorial infarcts. On blood sensitive sequences, there is no evidence of or chronic hemorrhage. There is mild to moderate global cortical atrophy with sulcal widening and ex vacuo dilatation of the lateral ventricles similar to remote previous exam. There is moderate to severe chronic small vessel disease change within the subcortical and periventricular white matter with old lacunar changes of the left basal ganglia. Evolving subacute lacunar infarct of the right prabhakar radiata white matter is appreciated. The remaining brain parenchyma is preserved in signal intensity for age. The flow voids at the skull base are unremarkable. The orbits and their contents are within normal limits. There is minimal chronic mucosal thickening within the paranasal sinuses. There is minimal fluid in the bilateral mastoid air cells. Impression: 1. There is demonstration of an evolving subacute lacunar infarct within the right prabhakar radiata white matter without evidence of additional territorial infarct. 2. Otherwise, extensive chronic small vessel disease and remote ischemic changes of the brain are appreciated. No other acute intracranial abnormalities. Findings were discussed with Samantha Fung at 12:43 p.m. June 07, 2025 Dictated by Ilia Ho MD @ 06/07/2025 12:44:06 PM (Electronically Signed)
[2025-06-07] MEDS: ACETAMINOPHEN 325 MG TABLET 650 MG PO ×2 (09:00→13:23)
[2025-06-07] MEDS: FAMOTIDINE 20 MG TABLET PO (09:00)
[2025-06-07] MEDS: CLOPIDOGREL 75 MG TABLET PO (09:00)
[2025-06-07] MEDS: SODIUM CHLORIDE 0.9 % (FLUSH) 10 ML SYRINGE 5 ML IVF (09:01)
[2025-06-07] MEDS: ASPIRIN EC 325 MG TABLET PO (09:26)
[2025-06-07 11:00] VITALS: BP 143/91; PULSE 77; RESP 18; TEMP 36.6; O2SAT 97
--- NOTE | 2025-06-07 14:08 | PC.SOCIAL ---
Discharge planning: fire crew worker met with the pt who confirmed that she lives at [facility] in [place] which are the independent apartments on the [facility] campus. The pt is being recommended for home care PT/OT, speech therapy and bath aide. fire crew worker sent the home care referral to [facility], fax number #[phone] since pt's PCP is through [facility] in [place]. fire crew worker is waiting on a response from [facility] on if they can accept or not. Pt stated that she has support from her son and that he can give her a ride when she is ready to discharge from the hospital. Social work to follow-up as needed.
--- NOTE | 2025-06-07 14:31 | PM.DS1 ---
DS: Providers Provider Date Seen: 06/07/25 Date of admission: 06/06/25 19:37 Primary care physician: Andie Holliday MD Admitting Clinician: Perico Villareal MD Consults: 06/06/25 20:38 Consult to Occupational Therapy [CONS] Routine Comment: Reason(s) for OT Consult:: Evaluate and Treat Any Restrictions?:: No Restrictions Consult to Physical Therapy [CONS] Routine Comment: Reason(s) for PT Consult:: Evaluate and Treat Any Restrictions?:: No Restrictions Consult to Attic Fans Mechanic [CONS] Routine Comment: Reason for Consult:: Discharge Planning Needs Consult to Speech Therapy [CONS] Routine Comment: Reason(s) for Speech Consult:: Speaking Difficulty Swallowing Difficulty 06/06/25 21:18 Consult to Attic Fans Mechanic [CONS] Routine Comment: Reason for Consult:: Social Service Consult Attending Physician on discharge: REBA LEDEZMA, [facility] Date of Discharge: 06/07/25 DS: Diagnosis Discharge Diagnosis (1) Stroke: Status: Acute Problem details: -emergency department physician discussed with neurologist, Dr. Martin, who recommends increasing aspirin dose from 81 mg daily to 325 mg daily, give a single dose of clopidogrel 300 mg now and then 75 mg once daily starting tomorrow, admission for observation, check a transthoracic echocardiogram, check an MR scan of the brain, assess lipid profile, consult with Physical therapy, Occupational therapy, speech therapy. MRI confirms evolving subacute lacunar infarct within the right prabhakar radiata white matter without evidence of additional territorial infarct. Reviewed with tele neurology, Dr. Campbell. Discharge instructions as follows: DAPT - aspirin 81 mg daily x3 weeks plus Plavix 75 mg daily indefinitely Rosuvastatin increased to 40 mg daily Outpatient PT/OT/NET MANAGER Smoking cessation (2) Cerebral atherosclerosis: Status: Acute Problem details: Noted risk factor (3) Cerebrovascular small vessel disease: Status: Acute Problem details: Noted risk factor (4) Essential hypertension: Status: Acute Problem details: Discharged on home lisinopril (5) Hyperlipidemia: Status: Acute Problem details: Rosuvastatin increased to 40 mg daily, lipids reviewed (6) Tobacco use disorder: Status: Acute Problem details: Smoking cessation encouraged (7) Chronic obstructive pulmonary disease: Status: Acute Problem details: Stable DS: Summary Hospital Course Hospital Course: Course of care and details as noted above. Remainder of chronic medical comorbidities were monitored and managed with home medications. Status at Discharge Cognitive/behavioral status at discharge: Baseline Overall status at discharge: patient is progressing back to baseline Time Spent with Patient Time attestation: Total time spent providing and/or coordinating discharge services: Time spent: Greater than 30 minutes Exam Narrative: Exam Narrative: PHYSICAL EXAM General: Pleasant, conversant, NAD Cardiovascular: RRR Pulmonary: No dyspnea Neurological: Alert, answering questions appropriately, mild left-sided deficit noted, mild slurring of speech Skin: Warm, dry. Const: Vital Signs, click to edit/add: Vital Signs - 24 hr 06/06/25 16:35 06/06/25 17:42 06/06/25 17:45 Temperature 98.2 F Pulse Rate 80 73 Pulse Rate [Pulse Oximeter] 100 Respiratory Rate 16 Blood Pressure Blood Pressure [Le ft Arm] Blood Pressure [Ri ght Upper Arm] 143/91 H Pulse Oximetry 96 94 94 Oxygen Delivery Me thod Room Air 06/06/25 17:55 06/06/25 18:00 06/06/25 18:01 Temperature Pulse Rate 77 73 74 Pulse Rate [Pulse Oximeter] Respiratory Rate Blood Pressure 152/94 H 140/92 H Blood Pressure [Le ft Arm] Blood Pressure [Ri ght Upper Arm] Pulse Oximetry 94 93 94 Oxygen Delivery Me thod 06/06/25 18:27 06/06/25 18:29 06/06/25 18:30 Temperature Pulse Rate 75 76 71 Pulse Rate [Pulse Oximeter] Respiratory Rate Blood Pressure Blood Pressure [Le ft Arm] Blood Pressure [Ri ght Upper Arm] Pulse Oximetry 98 96 97 Oxygen Delivery Me thod 06/06/25 18:33 06/06/25 18:34 06/06/25 18:45 Temperature Pulse Rate 77 76 73 Pulse Rate [Pulse Oximeter] Respiratory Rate Blood Pressure Blood Pressure [Le ft Arm] Blood Pressure [Ri ght Upper Arm] Pulse Oximetry 96 95 94 Oxygen Delivery Me thod 06/06/25 18:48 06/06/25 19:00 06/06/25 19:50 Temperature 97.5 F L Pulse Rate 74 Pulse Rate [Pulse Oximeter] 77 Respiratory Rate 16 Blood Pressure Blood Pressure [Le ft Arm] 151/93 H Blood Pressure [Ri ght Upper Arm] Pulse Oximetry 95 95 99 Oxygen Delivery Me thod Room Air 06/06/25 19:50 06/06/25 19:59 06/06/25 20:00 Temperature 98.2 F 98.2 F Pulse Rate Pulse Rate [Pulse Oximeter] 89 89 Respiratory Rate 16 16 16 Blood Pressure Blood Pressure [Le ft Arm] Blood Pressure [Ri ght Upper Arm] 145/85 H 145/85 H Pulse Oximetry 95 95 Oxygen Delivery Me thod Room Air Room Air 06/06/25 23:00 06/06/25 23:00 06/06/25 23:00 Temperature Pulse Rate 71 Pulse Rate [Pulse Oximeter] 76 Respiratory Rate 16 Blood Pressure Blood Pressure [Le ft Arm] Blood Pressure [Ri ght Upper Arm] Pulse Oximetry 96 Oxygen Delivery Me thod Room Air 06/07/25 00:25 06/07/25 03:40 06/07/25 07:00 Temperature 97.8 F 97.9 F Pulse Rate Pulse Rate [Pulse Oximeter] 76 69 Respiratory Rate 16 16 16 Blood Pressure Blood Pressure [Le ft Arm] 102/68 119/81 Blood Pressure [Ri ght Upper Arm] Pulse Oximetry 96 94 97 Oxygen Delivery Me thod Room Air Room Air Room Air 06/07/25 07:00 06/07/25 07:35 06/07/25 07:35 Temperature 97.9 F Pulse Rate 74 Pulse Rate [Pulse Oximeter] 75 75 Respiratory Rate 16 16 Blood Pressure Blood Pressure [Le ft Arm] 125/94 H Blood Pressure [Ri ght Upper Arm] Pulse Oximetry 97 Oxygen Delivery Me thod Room Air 06/07/25 11:00 Temperature 97.8 F Pulse Rate Pulse Rate [Pulse Oximeter] 77 Respiratory Rate 18 Blood Pressure Blood Pressure [Le ft Arm] 143/91 H Blood Pressure [Ri ght Upper Arm] Pulse Oximetry 97 Oxygen Delivery Me thod Room Air DS: Data Data Completed and Pending Completed studies during hospitalization: Procedures Introduction of Other Gas into Respiratory Tract, Via Natural or Artificial Opening (01/08/24) Labs on day of discharge: Labs from last 24 hours 06/07/25 06/06/25 05:31 17:25 WBC 8.67 RBC 4.43 Hgb 12.9 Hct 39.5 MCV 89 MCH 29 MCHC 33 RDW Coeff of David 13.9 Plt Count 232 Neut % (Auto) 65.4 Lymph % (Auto) 22.6 [place] % (Auto) 10.4 Eos % (Auto) 1.0 Baso % (Auto) 0.5 Neut # (Auto) 5.67 Lymph # (Auto) 1.96 [place] # (Auto) 0.90 Eos # (Auto) 0.09 Baso # (Auto) 0.04 Abs Immat Gran (auto) 0.01 Imm/Tot Granulo (auto) 0.1 ESR 6 INR 0.98 APTT 32 Sodium 139 Potassium 3.9 Chloride 101 Carbon Dioxide 30 Anion Gap 8 BUN 14 Creatinine 0.6 Estimated Creat Clear 47.01 Estimated GFR 101 Glucose 104 Calcium 9.4 Troponin I < 0.01 C-Reactive Protein < 0.5 L Triglycerides 181 H Cholesterol 220 H LDL Cholesterol, Calc 134 H HDL Cholesterol 50 Ethyl Alcohol < 0.01 Imaging MR Brain: Attestation: I have reviewed the pertinent imaging results. Radiologist's impression: On midline sagittal T1 images there are preserved flow voids within the sagittal sinuses. The corpus callosum is preserved in signal and contour. The pituitary gland is unremarkable without evidence of remodeling of the sella turcica. There is no significant cerebellar tonsillar ectopia. On diffusion-weighted sequences, there is demonstration of an evolving subacute lacunar infarct within the right prabhakar radiata white matter with minimal extension to the superolateral basal ganglia. Otherwise, no evidence of additional acute or territorial infarcts. On blood sensitive sequences, there is no evidence of or chronic hemorrhage. There is mild to moderate global cortical atrophy with sulcal widening and ex vacuo dilatation of the lateral ventricles similar to remote previous exam. There is moderate to severe chronic small vessel disease change within the subcortical and periventricular white matter with old lacunar changes of the left basal ganglia. Evolving subacute lacunar infarct of the right prabhakar radiata white matter is appreciated. The remaining brain parenchyma is preserved in signal intensity for age. The flow voids at the skull base are unremarkable. The orbits and their contents are within normal limits. There is minimal chronic mucosal thickening within the paranasal sinuses. There is minimal fluid in the bilateral mastoid air cells. Impression: 1. There is demonstration of an evolving subacute lacunar infarct within the right prabhakar radiata white matter without evidence of additional territorial infarct. 2. Otherwise, extensive chronic small vessel disease and remote ischemic changes of the brain are appreciated. No other acute intracranial abnormalities. CT scan - head: Attestation: I have reviewed the pertinent imaging results. Radiologist's impression: No acute intracranial hemorrhage. Stable chronic lacunar type infarcts within the left basal ganglia and right cerebellum. Slight increase in scattered hypoattenuation within the supratentorial white matter. The ventricles are unchanged in size. There is similar mild diffuse parenchymal volume loss. No abnormal extra-axial fluid collection is identified. Intact calvarium and skull base. Symmetric globes. The imaged paranasal sinuses and mastoid air cells are clear. IMPRESSION: 1. No acute intracranial hemorrhage or mass effect. 2. Stable chronic lacunar-type infarcts within the left basal ganglia and right cerebellum. 3. Slight increase in scattered hypoattenuation within the supratentorial white matter, nonspecific, but commonly reflecting chronic small vessel ischemic changes. CTA head/neck: Attestation: I have reviewed the pertinent imaging results. Radiologist's impression: CTA head: There is scattered intracranial atherosclerotic disease. There is normal opacification of the intracranial vasculature. There is no large vessel occlusion or significant intracranial stenosis. No aneurysm is identified. CTA neck: There is carotid atherosclerosis bilaterally. There is atherosclerotic plaque in the proximal right ICA resulting in a moderate stenosis, 50% by NASCET. There is atherosclerotic plaque in the proximal left ICA resulting in a mild stenosis, less than 50% by NASCET. There is no significant vertebral artery stenosis or dissection. Degenerative changes are noted in the cervical spine. Emphysema is present in the visualized lungs. IMPRESSION: No acute intracranial abnormality at CTA. Moderate proximal right ICA stenosis, 50% by NASCET. Mild proximal left ICA stenosis, less than 50% by NASCET. Discharge Plan Discharge Disposition: Home, Self-Care Date of Admission: 06/06/25 19:37 Attending Provider on Discharge: Samantha Maciel Primary Care Provider: Andie Holliday Condition: Stable Anticipated Discharge Date/Time: 06/07/25 16:00 Discharge Medications: New clopidogrel 75 mg Tablet 75 mg PO DAILY Qty: 30 0RF rosuvastatin 40 mg tablet 40 mg PO DAILY Qty: 30 0RF Continued aspirin 81 mg tablet,delayed release (DR/EC) 81 mg PO DAILY lisinopril 10 mg tablet 10 mg PO DAILY albuterol sulfate [Ventolin HFA] 90 mcg/actuation HFA aerosol inhaler 2 puff inhalation Q4-6H PRN Discontinued rosuvastatin 20 mg tablet 20 mg PO QPM Discharge Orders: Discharge Order (Routine); Ordered 06/07/25 Ordered By: Samantha Maciel Patient Education: Clopidogrel (By mouth), Rosuvastatin (By mouth), Stroke (DC) Additional Instructions: CONTINUE TO TAKE ASPIRIN 81MG DAILY FOR 3 WEEKS - THEN STOP THIS CONTINUE PLAVIX 75MG DAILY INDEFINITELY - YOUR PCP WILL MANAGE THIS FOR YOU YOUR CRESTOR HAS BEEN INCREASED TO 40MG DAILY RECOMMEND PT, OT, SPEECH THERAPY RECOMMEND SMOKING CESSATION Activity Level: Activity as Tolerated Activity Detail: Physical Therapy, Occupational Therapy & Speech Therapy someone will reach out to you to set this up Discharge Diet: Regular Follow Up Appointments: Andie Holliday MD [Primary Care Provider, Family Practice] - 06/13/25 12:45 pm Referral Note: [facility] for follow up with PCP Forms: [employer] Info Instructions
[2025-06-07 15:00] VITALS: BP 137/82; PULSE 62; RESP 18; TEMP 36.7; O2SAT 96
--- NOTE | 2025-06-07 15:35 | PC.NURSE ---
End of Shift: Patient pleasant and cooperative, A&O. VSS, afebrile. SpO2 maintained above 90% on RA. Denies nausea and pain this shift. IV removed with tip intact. Discharge instructions provided, all questions answered. D/C to home via wheelchair.
--- NOTE | 2025-06-10 09:03 | REH.SLP ---
Speech Language Pathology Discharge Summary Reason for therapy discharge: Discharged to previous living situation. Progress towards therapy goals. Goals not met. See goals in speech therapy notes in [facility] electronic health records. Rehab barriers to achieving goals: discharge on same date as initial evaluation. Therapy Recommendations: Continued therapy is recommended for dysphagia and dysarthria therapy.
--- NOTE | 2025-06-10 09:29 | PC.SOCIAL ---
Addendum entered by HARSHA Nieto 06/10/25 15:46: Received confirmation from [facility] they will provide ordered Home Care services, can start tomorrow 06/11/25, and will call patient directly regarding schedule and first appointment. Original Note: Discharge planning: Received message from [facility] which was left on phone 06/08/25, stating they are unable to accept a new referral due to staffing. Called pt who states she has never had home care previously and has no preference for which agency to use. Pt requested social media executive find an agency that can provide services as soon as possible. Called [facility] and artie Wells who requested referral be sent for evaluation. [email or web address] Awaiting call back with decision on acceptance and follow up plan. garden worker to follow up as needed.
== END 2025-06-07 15:25 | disposition home or self-care (01) ==
LOC: ED 19:03 → MEDSURG 19:38
PROVIDERS: Admitting Provider Internal Medicine; Emergency Provider Emergency Medicine; PCP Family Medicine; Visit Provider Internal Medicine
DX: I63.81 Other cerebral infarction due to occlusion or stenosis of small artery (principal); I67.2 Cerebral atherosclerosis; I67.9 Cerebrovascular disease, unspecified; I10 Essential (primary) hypertension; F17.200 Nicotine dependence, unspecified, uncomplicated; E78.5 Hyperlipidemia, unspecified; J43.9 Emphysema, unspecified; E03.9 Hypothyroidism, unspecified; Z86.73 Personal history of transient ischemic attack (TIA), and cerebral infarction without residual deficits
CPT/HCPCS: 36415; 70450; 70496; 70498; 70551; 80048; 80061; 82077; 84484; 85025; 85610; 85651; 85730; 86140; 92610; 93005; 93306; 94761; 97116; 97161; 97165; 97535; 99283; 99285; A9270; G0378; Q9967